=== PATIENT | female | born 1950 | race Caucasian/White ===

== ENCOUNTER 2020-05-14 10:15 | Outpatient (CLI) | payer MEDICARE, MEDICAID, SELFPAY | END 2020-05-14 10:16 | disposition home or self-care (01) | DX: H90.3 Sensorineural hearing loss, bilateral (principal) | CPT/HCPCS: 92557; 92567 ==

== ENCOUNTER 2020-08-23 10:00 | Outpatient (RCR) | payer MEDICAID, SELFPAY | END 2020-10-14 23:59 | disposition home or self-care (01) | LOC: ANHBWCAUD 10:00 | PROVIDERS: PCP Family Medicine; Visit Provider Family Medicine | DX: Z46.1 Encounter for fitting and adjustment of hearing aid (principal) | CPT/HCPCS: 99199; V5160; V5261; V5264 ==

== ENCOUNTER 2021-06-13 12:38 | Outpatient (RCR) | payer MEDICAID, SELFPAY | END 2021-09-11 23:59 | disposition home or self-care (01) | LOC: ANHBWCAUD 12:38 | PROVIDERS: PCP Family Medicine; Visit Provider Family Medicine | DX: Z46.1 Encounter for fitting and adjustment of hearing aid (principal) | CPT/HCPCS: V5264 ==

== ENCOUNTER 2021-08-19 08:44 | Outpatient (CLI) | payer MEDICARE, MEDICAID, SELFPAY | END 2021-08-19 08:45 | disposition home or self-care (01) | PROVIDERS: PCP Family Medicine; Visit Provider Family Medicine | DX: H90.3 Sensorineural hearing loss, bilateral (principal) | CPT/HCPCS: 92557; 92567 ==

== ENCOUNTER 2022-08-04 13:42 | Outpatient (CLI) | payer MEDICARE, MEDICAID, SELFPAY | END 2022-08-04 13:43 | disposition home or self-care (01) | PROVIDERS: PCP Family Medicine; Visit Provider Family Medicine | DX: H90.3 Sensorineural hearing loss, bilateral (principal) | CPT/HCPCS: 92557; 92567 ==

== ENCOUNTER 2023-09-29 10:25 | Outpatient (CLI) | payer MEDICARE, MEDICAID, SELFPAY | END 2023-09-29 10:26 | disposition home or self-care (01) | LOC: ANHBWCAUD 10:26 | PROVIDERS: PCP Family Medicine | DX: H91.93 Unspecified hearing loss, bilateral (principal) | CPT/HCPCS: 99199 ==

== ENCOUNTER 2023-11-17 09:59 | Outpatient (CLI) | payer MEDICARE, MEDICAID, SELFPAY | END 2023-11-17 10:00 | disposition home or self-care (01) | LOC: ANHBWCAUD 09:59 | PROVIDERS: PCP Family Medicine | DX: H90.3 Sensorineural hearing loss, bilateral (principal) | CPT/HCPCS: 92557; 92567 ==

== ENCOUNTER 2024-11-28 09:08 | Outpatient (CLI) | payer MEDICARE, MEDICAID, SELFPAY ==
--- OUTSIDE RECORDS SUMMARY | 2024-11-28 09:19 | XMS_ITS | Encounter Summary ---
Author Organization [facility] Address [address] [place] [address] Phone Care Team Providers Care Grips Name Role Phone Jasson Layne MD Unavailable [phone] Brice Mondragon MD Primary Care Provider [phone] Fortino Alicia MD Primary Care Provider [phone] Encounter Details Date Type Department Care Team (Late st Contact Info) Description 03/25/2022 Lab Requisition [facility] Laboratory Services [address] [place] [address] Brice Monrdagon MD [address] [place] [address] [address] [address] [place] [address] Encounter for screening for COVID-19 Social History Tobacco Use Types Packs/Day Years Used Date Smoking Tobacco: Never Smokeless Tobacco: Never Alcohol Use Standard Drinks/Week Comments Not Currently 0 (1 standard drink = 0.6 oz pur e alcohol) Sexually Active Control Partners Comments Not Currently Comments Unknown Sex and Gender Information Value Date Recorded Sex Assigned at Not on file Legal Sex Female 11:47 PM CDT Gender Identity Not on file Sexual Orientation Not on file documented as of this encounter Plan of Treatment Not on file documented as of this encounter Visit Diagnoses Diagnosis Encounter for screening for COVID-19 documented in this encounter Additional Health Concerns Infection Onset Date Last Indicated Resolved Time COVID - 19 10/08/2021 05/06/2022 05/16/2022 12:1 6 AM REGISTERED NURSE NURSERY COVID - 19 06/24/2022 09/09/2022 09/19/2022 12:1 6 AM CDT documented as of this encounter Care Teams Grips Relationship Specialty Start Date End Date Brice Mondragon MD 4 [facility] [address] [place] [address] PCP - General Family Medicine 03/12/20 11/05/22 Fortino Alicia MD [address] [facility] [address] [place] [address] PCP - General Internal Medicine 11/06/22 Jasson Layne MD Consulting Physician Neurology 04/02/16 05/07/24 documented as of this encounter
--- OUTSIDE RECORDS SUMMARY | 2024-11-28 09:19 | XMS_ITS | Encounter Summary ---
Author Organization [facility] Address [address] [place] [address] Phone Care Team Providers Care Registered Pharmacist Name Role Phone Jasson Layne MD Unavailable [phone] Brice Mondragon MD Primary Care Provider [phone] Fortino Alicia MD Primary Care Provider [phone] Encounter Details Date Type Department Care Team (Late st Contact Info) Description 04/01/[address] [facility] Laboratory Services [address] [place] [address] Brice Mondragon MD [address] [place] [address] [facility] [address] [place] [address] Encounter for screening for COVID-19 [...] on file documented as of this encounter Procedures Procedure Name Priority Date/Time Associated Diagnosis Comments SARS-COV-2 BY MOLECULAR Routine 04/01/2022 8:34 AM CDT Encounter for screening for COVID-19 documented in this encounter Results * SARS-COV-2 BY MOLECULAR (04/01/2022 8:34 AM CDT) SARSCOV2 NOT DETECTED (Referen ce Range for this test is Not Detected ) [facility] THERMOFISHER FAST DX 04/02/2022 12:28 AM CDT [facility] Comment:This test was perfor med by a RT-PCR method. Other No Phlebotomy Charged / Unknown 04/01/2022 8:34 AM CDT 04/01/2022 1:06 PM CDT Narrative [facility] - 04/02/2022 12:28 AM CDT Authorized Fact Sheets about this test for providers and patients are available at: https://www.fda.gov/medical-devices/fmfosjeyo-vnlvaxubjn-mkppljo-devices/emergen -us e-authorizations us Brice Mondragon MD MICROBIOLOGY - GENERAL ORDERAB LES Final Result [facility] [address] [id number], documented in this encounter Visit Diagnoses Diagnosis Encounter for screening for COVID-19 documented in this encounter Additional Health Concerns Infection Onset Date Last Indicated Resolved Time COVID - 19 10/08/2021 05/06/2022 05/16/2022 12:1 6 AM AMPOULE INSPECTOR COVID - 19 06/24/2022 09/09/2022 09/19/2022 12:1 6 AM CDT documented as of this encounter Care Teams Registered Pharmacist Relationship Specialty Start Date End Date Brice Mondragon MD [address] [place] [address] [address] [place] [address] PCP - General Family Medicine 03/12/20 11/05/22 Fortino Alicia MD [address] [place] [address] PCP - General Internal Medicine 11/06/22 Jasson Layne MD Consulting Physician Neurology 04/02/16 05/07/24 documented as of this encounter
--- OUTSIDE RECORDS SUMMARY | 2024-11-28 09:19 | XMS_ITS | Encounter Summary ---
Author Organization [facility] Address [address] [place] [address] Phone Care Team Providers Care Mud Mixer Name Role Phone Jasson Layne MD Unavailable [phone] Brice Mondragon MD Primary Care Provider [phone] Fortino Alciia MD Primary Care Provider [phone] Encounter Details Date Type Department Care Team (Late st Contact Info) Description 06/24/2022 Lab Requisition [facility] Laboratory Services 1 [place] [address] Brice Mondragon MD [address] [place] [address] [facility] [address] [place] [address] Encounter for screening for COVID-19 [...] Associated Diagnosis Comments SARS-COV-2 BY MOLECULAR Routine 06/24/2022 8:20 AM SUPERVISOR COLOR MAKING Encounter for screening for COVID-19 documented in this encounter Results * SARS-COV-2 BY MOLECULAR (06/24/2022 8:20 AM SUPERVISOR COLOR MAKING) SARSCOV2 NOT DETECTED (Referen ce Range for this test is Not Detected ) [facility] THERMOFISHER FAST DX 06/25/2022 12:02 AM SUPERVISOR COLOR MAKING [facility] Comment:This test was perfor med by a RT-PCR method. Other Non-Phlebotomy Collection / Unknown 06/24/2022 8:20 AM SUPERVISOR COLOR MAKING 06/24/2022 2:29 PM SUPERVISOR COLOR MAKING Narrative [facility] - 06/25/2022 12:02 AM SUPERVISOR COLOR MAKING Authorized Fact Sheets about this test for providers and patients are available at: https://www.fda.gov/medical-devices/obpuyqccm-mfboazgcff-kkutofh-devices/emergen cy-us e-authorizations us Brice Mondragon MD MICROBIOLOGY - GENERAL ORDERAB LES Final Result [facility] [address] [id number], documented in this encounter Visit Diagnoses Diagnosis Encounter for screening for COVID-19 documented in this encounter Additional Health Concerns Infection Onset Date Last Indicated Resolved Time COVID - 19 06/24/2022 09/09/2022 09/19/2022 12:1 6 AM CDT documented as of this encounter Care Teams Mud Mixer Relationship Specialty Start Date End Date Brice Mondragon MD [address] [place] [address] [address] [place] [address] PCP - General Family Medicine 03/12/20 11/05/22 Fortino Alicia MD [address] [place] [address] PCP - General Internal Medicine 11/06/22 Jasson Layne MD Consulting Physician Neurology 04/02/16 05/07/24 documented as of this encounter
--- OUTSIDE RECORDS SUMMARY | 2024-11-28 09:19 | XMS_ITS | Encounter Summary ---
Author Organization [facility] Address [address] [place] [address] Phone Care Team Providers Care Health Spa Manager Name Role Phone Jasson Layne MD Unavailable [phone] Brice Mondragon MD Primary Care Provider Fortino Alicia MD Primary Care Provider [phone] Encounter Details Date Type Department Care Team (Late st Contact Info) Description 05/06/2022 Lab Requisition [facility] Laboratory Services [address] [place] [address] Brice Mondragon MD [address] [place] [address] [facility] [address] [place] [address] Encounter for screening for COVID-19 [...] Associated Diagnosis Comments SARS-COV-2 BY MOLECULAR Routine 05/06/2022 9:50 AM AIRPLANE CLEANER Encounter for screening for COVID-19 documented in this encounter Results * SARS-COV-2 BY MOLECULAR (05/06/2022 9:50 AM AIRPLANE CLEANER) SARSCOV2 NOT DETECTED (Referen ce Range for this test is Not Detected ) [facility] THERMOFISHER FAST DX 05/07/2022 4:42 AM AIRPLANE CLEANER [facility] Comment:This test was perfor med by a RT-PCR method. Other Non-Phlebotomy Collection / Unknown 05/06/2022 9:50 AM AIRPLANE CLEANER 05/06/2022 11:07 AM AIRPLANE CLEANER Narrative [facility] - 05/07/2022 4:42 AM AIRPLANE CLEANER Authorized Fact Sheets about this test for providers and patients are available at: https://www.fda.gov/medical-devices/sadjdjftk-pliwpdbcva-xgmmntl-devices/emergen -us e-authorizations us Brice Mondragon MD MICROBIOLOGY - GENERAL ORDERAB LES Final Result [facility] [address] [place] [address], documented in this encounter Visit Diagnoses Diagnosis Encounter for screening for COVID-19 documented in this encounter Additional Health Concerns Infection Onset Date Last Indicated Resolved Time COVID - 19 10/08/2021 05/06/2022 05/16/2022 12:1 6 AM AIRPLANE CLEANER COVID - 19 06/24/2022 09/09/2022 09/19/2022 12:1 6 AM CDT documented as of this encounter Care Teams Health Spa Manager Relationship Specialty Start Date End Date Brice Mondragon MD [address] [facility] [address] [place] [address] PCP - General Family Medicine 03/12/20 11/05/22 Fortino Alicia MD [address] [place] [address] PCP - General Internal Medicine 11/06/22 Jasson Layne MD Consulting Physician Neurology 04/02/16 05/07/24 documented as of this encounter
--- OUTSIDE RECORDS SUMMARY | 2024-11-28 09:19 | XMS_ITS | Encounter Summary ---
Author Organization [facility] Address [address] [place] [address] Phone Care Team Providers Care M1A1 Tank Crewman Name Role Phone Jasson Layne MD Unavailable [phone] Brice Mondragon MD Primary Care Provider [phone] Fortino Alicia MD Primary Care Provider [phone] Encounter Details Date Type Department Care Team (Late st Contact Info) Description 07/01/2022 Lab Requisition [facility] Laboratory Services 1 [place] [address] Brice Mondragon MD [address] [place] [address] [facility] [address] [place] [address] Encounter for screening for COVID-19 [...] Associated Diagnosis Comments SARS-COV-2 BY MOLECULAR Routine 07/01/2022 12:12 PM VENDOR QUALITY SUPERVISOR Encounter for screening for COVID-19 documented in this encounter Results * SARS-COV-2 BY MOLECULAR (07/01/2022 12:12 PM VENDOR QUALITY SUPERVISOR) SARSCOV2 NOT DETECTED (Referen ce Range for this test is Not Detected ) [facility] THERMOFISHER FAST DX 07/02/2022 12:24 AM VENDOR QUALITY SUPERVISOR [facility] Comment:This test was perfor med by a RT-PCR method. Other No Phlebotomy Charged / Unknown 07/01/2022 12:12 PM VENDOR QUALITY SUPERVISOR 07/01/2022 1:44 PM VENDOR QUALITY SUPERVISOR Narrative [facility] - 07/02/2022 12:24 AM VENDOR QUALITY SUPERVISOR Authorized Fact Sheets about this test for providers and patients are available at: https://www.fda.gov/medical-devices/fuyveouwa-ohtmnlzaiq-dbepnjg-devices/emergen -us e-authorizations us Brice Mondragon MD MICROBIOLOGY - GENERAL ORDERAB LES Final Result [facility] [address] [place] [address], documented in this encounter Visit Diagnoses Diagnosis Encounter for screening for COVID-19 documented in this encounter Additional Health Concerns Infection Onset Date Last Indicated Resolved Time COVID - 19 06/24/2022 09/09/2022 09/19/2022 12:1 6 AM CDT documented as of this encounter Care Teams M1A1 Tank Crewman Relationship Specialty Start Date End Date Brice Mondragon MD [address] [place] [address] [address] [place] [address] PCP - General Family Medicine 03/12/20 11/05/22 Fortino Alicia MD [address] [place] [address] PCP - General Internal Medicine 11/06/22 Jasson Layne MD Consulting Physician Neurology 04/02/16 05/07/24 documented as of this encounter
--- OUTSIDE RECORDS SUMMARY | 2024-11-28 09:20 | XMS_ITS | Encounter Summary ---
Author Organization [facility] Address [address] [place] [address] Phone Care Team Providers Care Mental Health Social Worker Name Role Phone Fortino Alicia MD Primary Care Provider [phone] Encounter Details Date Type Department Care Team (Late st Contact Info) Description 08/30/2024 Lab Requisition [facility] Laboratory Services [address] [place] [id number] Fortino Alicia MD [address] [facility] [address] [place] [address] Other seizures (HCC); Hypothyroidism, unspecified; Vasomotor rhinitis; Unspecified dementia, unspecified severity, without behavioral disturbance, psychotic disturbance, mood disturbance, and anxiety (HCC); Moderate intellectual disabilities; Unspecified intellectual disabilities; Essential (primary) hypertension Social History Tobacco Use Types Packs/Day Years [...] Procedure Name Priority Date/Time Associated Diagnosis Comments VITAMIN D, 25 HYDROXY TOTAL Routine 08/30/2024 6:57 AM BODY LINER Other seizures (HCC) Hypothyroidism, unspecified Vasomotor rhinitis Unspecified dementia, unspecified severity, without behavioral disturbance, psychotic disturbance, mood disturbance, and anxiety (HCC) Moderate intellectual disabilities Unspecified intellectual disabilities Essential (primary) hypertension LEVETIRACETAM Routine 08/30/2024 6:57 AM BODY LINER Other seizures (HCC) Hypothyroidism, unspecified Vasomotor rhinitis Unspecified dementia, unspecified severity, without behavioral disturbance, psychotic disturbance, mood disturbance, and anxiety (HCC) Moderate intellectual disabilities Unspecified intellectual disabilities Essential (primary) hypertension CBC WITH AUTO DIFFERENTIAL Routine 08/30/2024 6:57 AM BODY LINER Other seizures (HCC) Hypothyroidism, unspecified Vasomotor rhinitis Unspecified dementia, unspecified severity, without behavioral disturbance, psychotic disturbance, mood disturbance, and anxiety (HCC) Moderate intellectual disabilities Unspecified intellectual disabilities Essential (primary) hypertension THYROID STIMULATING HORMONE (TSH) Routine 08/30/2024 6:57 AM BODY LINER Other seizures (HCC) Hypothyroidism, unspecified Vasomotor rhinitis Unspecified dementia, unspecified severity, without behavioral disturbance, psychotic disturbance, mood disturbance, and anxiety (HCC) Moderate intellectual disabilities Unspecified intellectual disabilities Essential (primary) hypertension TRIIODOTHYRININE (T3) FREE Routine 08/30/2024 6:57 AM BODY LINER Other seizures (HCC) Hypothyroidism, unspecified Vasomotor rhinitis Unspecified dementia, unspecified severity, without behavioral disturbance, psychotic disturbance, mood disturbance, and anxiety (HCC) Moderate intellectual disabilities Unspecified intellectual disabilities Essential (primary) hypertension CMP (COMPREHENSIVE METABOLIC PANEL) Routine 08/30/2024 6:57 AM BODY LINER Other seizures (HCC) Hypothyroidism, unspecified Vasomotor rhinitis Unspecified dementia, unspecified severity, without behavioral disturbance, psychotic disturbance, mood disturbance, and anxiety (HCC) Moderate intellectual disabilities Unspecified intellectual disabilities Essential (primary) hypertension COMPLETE BLOOD COUNT (CBC) WITH DIFF Routine 08/30/2024 6:57 AM BODY LINER Other seizures (HCC) Hypothyroidism, unspecified Vasomotor rhinitis Unspecified dementia, unspecified severity, without behavioral disturbance, psychotic disturbance, mood disturbance, and anxiety (HCC) Moderate intellectual disabilities Unspecified intellectual disabilities Essential (primary) hypertension BILIRUBIN DIRECT (CONJUGATED) Routine 08/30/2024 6:57 AM BODY LINER Other seizures (HCC) Hypothyroidism, unspecified Vasomotor rhinitis Unspecified dementia, unspecified severity, without behavioral disturbance, psychotic disturbance, mood disturbance, and anxiety (HCC) Moderate intellectual disabilities Unspecified intellectual disabilities Essential (primary) hypertension documented in this encounter Results * BILIRUBIN DIRECT (CONJUGATED) (08/30/2024 6:57 AM BODY LINER) BILIRUBIN,DIREC T 0.2 0.0 - 0.5 mg/dL 08/30/2024 10:42 AM BODY LINER [facility] Blood Venipuncture / Unknown 08/30/2024 6:57 AM BODY LINER 08/30/2024 10:29 AM BODY LINER us Fortino Alicia MD CHEMISTRY ORDERABLES Final Resu lt [facility] #[address] [place] [address] * (ABNORMAL) CBC WITH AUTO DIFFERENTIAL (08/30/2024 6:57 AM BODY LINER) Pathologist [facility] WBC 4.85 4.00 - 12.00 10(3)/mcL 08/30/2024 8:09 AM BODY LINER [facility] RBC 4.72 3.80 - 5.30 10(6)/mcL 08/30/2024 8:09 AM [facility] HEMOGLOBIN (HGB) 14.5 12.0 - 15.8 g/dL 08/30/2024 8:09 AM BODY LINER [facility] HEMATOCRIT (HCT) 43.1 36.0 - 47.0 % 08/30/2024 8:09 AM [facility] MCV 91.3 82.0 - 96.0 fL 08/30/2024 8:09 AM [facility] MCH 30.7 26.0 - 34.0 pg 08/30/2024 8:09 AM [facility] MCHC 33.6 31.0 - 36.0 g/dL 08/30/2024 8:09 AM [facility] PLATELET COUNT 272 140 - 440 10(3)/[facility] 08/30/2024 8:09 AM [facility] RDW 12.9 11.8 - 15.5 % 08/30/2024 8:09 AM [facility] MPV 10.6 9.7 - 12.4 fL 08/30/2024 8:09 AM [facility] NEUTROPHILS 63.9 47.0 - 73.0 % 08/30/2024 8:09 AM [facility] LYMPHOCYTES 25.4 18.0 - 42.0 % 08/30/2024 8:09 AM [facility] MONOCYTES 10.1 4.0 - 12.0 % 08/30/2024 8:09 AM [facility] EOSINOPHILS 0.0 0.0 - 5.0 % 08/30/2024 8:09 AM [facility] BASOPHILS 0.6 0.0 - 1.0 % 08/30/2024 8:09 AM [facility] ABSOLUTE NEUTROPHILS 3.10 1.60 - 7.70 10(3)/[facility] 08/30/2024 8:09 AM [facility] ABSOLUTE LYMPHOCYTES 1.23(L) 1.30 - 3.20 10(3)/[facility] 08/30/2024 8:09 AM [facility] ABSOLUTE MONOCYTES 0.49 0.20 - 1.00 10(3)/[facility] 08/30/2024 8:09 AM [facility] ABSOLUTE EOSINOPHIL 0.00 0.00 - 0.40 10(3)/[facility] 08/30/2024 8:09 AM [facility] ABSOLUTE BASOPHILS 0.03 0.00 - 0.10 10(3)/[facility] 08/30/2024 8:09 AM [facility] NRBC PER 100 WBC 0 08/31/19 8:09 AM [facility] Blood Venipuncture / Unknown 08/30/2024 6:57 AM BODY LINER 08/30/2024 8:04 AM BODY LINER Fortino Alicia MD HEMATOLOGY ORDERABLES Final Res ult Performing Organization Address City/[facility]/ZIP Co de Phone Number [facility] [address] [place] [address] * VITAMIN D, 25 HYDROXY TOTAL (08/30/2024 6:57 AM BODY LINER) VITAMIN D, 25 HYDROX 29.3 ng/mL 08/30/2024 8:57 AM BODY LINER [facility] Blood Venipuncture / Unknown 08/30/2024 6:57 AM BODY LINER 08/30/2024 8:04 AM BODY LINER Narrative [facility] - 08/30/2024 8:57 AM BODY LINER Published reference ranges for Vitamin D vary depending on time and place and method of testing, and on patient's age, sex, ethnicity and levels of other measured analytes such as parathormone, calcium and phosphorus. The result should be evaluated in conjunction with clinical findings and suspicions. [employer] and [employer] Clinical Practice Guidelines: Status Vitamin D levels (ng/mL) Deficient <=20 At risk of inadequacy 21-29 Sufficient 30-100 Centers of Disease Control and Prevention Guidelines: Status Vitamin D levels (ng/mL) Deficient <13 At risk of inadequacy 13-19 Sufficient 20-50 Possibly harmful >50 References: [employer], 2010 Dietary reference intakes for calcium and vitamin D. [place]: The National Academies Press. Gabi M, Laine N, Jamila STRATTON, et al., Evaluation, treatment, and prevention of Vitamin D deficiency: an Endocrinology Clinical Practice Guideline. JCEM 2011 96: 7 2932-5415. Nicole A, Seamus C, Karla D, et al., Vitamin D Status: [place], 9976-6051, DCHS data brief, no. 59, [place]: National Center for Health Statistics. 2011. Fortino Alicia MD CHEMISTRY ORDERABLES Final Resu lt Performing Organization Address City/[facility]/ZIP Co de Phone Number [facility] [address] [place] [address] * LEVETIRACETAM (08/30/2024 6:57 AM BODY LINER) LEVETIRACETAM 37.7 12 - 46 mcg/mL 08/30/2024 2:31 PM BODY LINER [facility] Blood Venipuncture / Unknown 08/30/2024 6:57 AM BODY LINER 08/30/2024 8:04 AM BODY LINER us Fortino Alicia MD LAB SEND OUTS Final Result [facility] [address] [place] [address], * THYROID STIMULATING HORMONE (TSH) (08/30/2024 6:57 AM BODY LINER) TSH 1.652 0.300 - 5.000 mIU/L 08/30/2024 8:58 AM BODY LINER [facility] Blood Venipuncture / Unknown 08/30/2024 6:57 AM BODY LINER 08/30/2024 8:04 AM BODY LINER us Fortino Alicia MD CHEMISTRY ORDERABLES Final Resu lt [facility] [address] [place] [address] * TRIIODOTHYRININE (T3) FREE (08/30/2024 6:57 AM BODY LINER) FREE T3 3.0 1.6 - 3.9 pg/mL 08/30/2024 2:44 PM BODY LINER [facility] Blood Venipuncture / Unknown 08/30/2024 6:57 AM BODY LINER 08/30/2024 8:04 AM BODY LINER us Fortino Alicia MD CHEMISTRY ORDERABLES Final Resu lt [facility] [address] [place] [address], * (ABNORMAL) CMP (COMPREHENSIVE METABOLIC PANEL) (08/30/2024 6:57 AM BODY LINER) SODIUM 143 136 - 145 mmol/L 08/30/2024 8:42 AM [facility] POTASSIUM 4.1 3.5 - 5.1 mmol/L 08/30/2024 8:42 AM [facility] CHLORIDE 107 98 - 107 mmol/L 08/30/2024 8:42 AM [facility] CO2, VENOUS 27 22 - 30 mmol/L 08/30/2024 8:42 AM [facility] ANION GAP 13.1 <18.0 mmol/L 08/30/2024 8:42 AM [facility] GLUCOSE 99 70 - 99 mg/dL 08/30/2024 8:42 AM [facility] BUN 14 10 - 20 mg/dL 08/30/2024 8:42 AM [facility] CREATININE, BLOOD 0.75 0.60 - 1.00 mg/dL 08/30/2024 8:42 AM [facility] BUN/CREATININE RATIO 19 12 - 20 ratio 08/30/2024 8:42 AM [facility] TOTAL PROTEIN 8.2(H) 6.0 - 8.0 g/dL 08/30/2024 8:42 AM [facility] ALBUMIN 4.4 3.5 - 5.0 g/dL 08/30/2024 8:42 AM [facility] A/G RATIO 1.2 1.0 - 2.2 08/30/2024 8:42 AM [facility] CALCIUM 9.4 8.7 - 10.5 mg/dL 08/30/2024 8:42 AM [facility] T BILI 0.5 0.2 - 1.2 mg/dL 08/30/2024 8:42 AM [facility] SGOT (AST) 28 <43 U/L 08/30/2024 8:42 AM BODY LINER [facility] SGPT (ALT) 14 <56 U/L 08/30/2024 8:42 AM BODY LINER [facility] ALKALINE PHOSPHATASE 68 40 - 150 U/L 08/30/2024 8:42 AM BODY LINER [facility] GFR, ESTIMATED >60 >=60 08/30/2024 8:42 AM BODY LINER [facility] Comment: Creatinine Clearance is the preferred criteria for selecting drug dose adjustments in renally impaired patients. The GFR is provided as additional pertinent clinical information. GFR is reported in mL/min/1.73 sq m. Calculation based on the Chronic Kidney Disease Epidemiology Collaboration (CKD- EPI) equation refit without adjustment for race. GFR, EST. >60 >=60 025 8:42 AM BODY LINER [facility] GFR, EST. NONAFRICAN >60 >=60 08/30/2024 8:42 AM BODY LINER [facility] Blood Venipuncture / Unknown 08/30/2024 6:57 AM BODY LINER 08/30/2024 8:04 AM BODY LINER us Fortino Alicia MD CHEMISTRY ORDERABLES Final Resu lt [facility] [address] [place] [address] documented in this encounter Visit Diagnoses Diagnosis Other seizures (HCC) Hypothyroidism, unspecified Vasomotor rhinitis Allergic rhinitis, cause unspecified Unspecified dementia, unspecified severity, without behavioral disturbance, psychotic disturbance, mood disturbance, and anxiety (HCC) Moderate intellectual disabilities Unspecified intellectual disabilities Essential (primary) hypertension Unspecified essential hypertension documented in this encounter Care Teams Mental Health Social Worker Relationship Specialty Start Date End Date Fortino Alicia MD [address] [place] [address] PCP - General Internal Medicine 11/06/22 documented as of this encounter
--- OUTSIDE RECORDS SUMMARY | 2024-11-28 09:20 | XMS_ITS | Encounter Summary ---
Author Organization [facility] Address [address] [place] [address] Phone Care Team Providers Care Swim Coach Name Role Phone Jasson Layne MD Unavailable [phone] Brice Mondragon MD Primary Care Provider Fortino Alicia MD Primary Care Provider [phone] Encounter Details Date Type Department Care Team (Late st Contact Info) Description 06/18/2021 Lab Requisition [facility] Laboratory Services 1 [place] [address] Brice Mondragon MD [address] [place] [address] [facility] [address] [place] [address] Encounter for screening for COVID-19 [...] Associated Diagnosis Comments SARS-COV-2 BY MOLECULAR Routine 06/18/2021 8:27 AM SHEET IRONWORKER Encounter for screening for COVID-19 documented in this encounter Results * SARS-COV-2 BY MOLECULAR (06/18/2021 8:27 AM SHEET IRONWORKER) SARSCOV2 NOT DETECTED (Referen ce Range for this test is Not Detected ) [facility] THERMOFISHER FAST DX 06/21/2021 8:57 AM SHEET IRONWORKER [facility] Comment:This test was perfor med by a RT-PCR method. Other Non-Phlebotomy Collection / Unknown 06/18/2021 8:27 AM SHEET IRONWORKER 06/18/2021 9:03 PM SHEET IRONWORKER Narrative [facility] - 06/21/2021 8:57 AM SHEET IRONWORKER Authorized Fact Sheets about this test for providers and patients are available at: https://www.fda.gov/medical-devices/ghewydjbx-smutsnyuav-uqxxfjb-devices/emergen -us e-authorizations us Brice Mondragon MD MICROBIOLOGY - GENERAL ORDERAB LES Final Result [facility] [address] [place] [id number], documented in this encounter Visit Diagnoses Diagnosis Encounter for screening for COVID-19 documented in this encounter Additional Health Concerns Infection Onset Date Last Indicated Resolved Time COVID - 19 03/19/2021 07/02/2021 07/04/2021 7:20 PM SHEET IRONWORKER COVID - 19 Confirmed 07/02/2021 07/02/2021 022 12:17 AM SHEET IRONWORKER COVID - 19 07/23/2021 08/13/2021 09/02/2021 12:1 6 AM SHEET IRONWORKER COVID - 19 10/08/2021 05/06/2022 05/16/2022 12:1 6 AM SHEET IRONWORKER COVID - 19 06/24/2022 09/09/2022 09/19/2022 12:1 6 AM CDT documented as of this encounter Care Teams Swim Coach Relationship Specialty Start Date End Date Brice Mondragon MD [address] [facility] [address] [place] [address] PCP - General Family Medicine 03/12/20 11/05/22 Fortino Alicia MD [address] [place] [address] PCP - General Internal Medicine 11/06/22 Jasson Layne MD Consulting Physician Neurology 04/02/16 05/07/24 documented as of this encounter
--- OUTSIDE RECORDS SUMMARY | 2024-11-28 09:20 | XMS_ITS | Encounter Summary ---
Author Organization [facility] Address [address] [place] [address] Phone Care Team Providers Care Comprehensive Advisor Name Role Phone Jasson Layne MD Unavailable [phone] Brice Mondragon MD Primary Care Provider [phone] Fortino Alicia MD Primary Care Provider [phone] Encounter Details Date Type Department Care Team (Late st Contact Info) Description 11/05/2021 Lab Requisition [facility] Laboratory Services [address] [place] [address] Brice Mondragon MD [address] [place] [address] [facility] [address] [place] [address] Encounter for screening for COVID-19 [...] Associated Diagnosis Comments SARS-COV-2 BY MOLECULAR Routine 11/05/2021 9:16 AM CDT Encounter for screening for COVID-19 documented in this encounter Results * SARS-COV-2 BY MOLECULAR (11/05/2021 9:16 AM CDT) SARSCOV2 NOT DETECTED (Referen ce Range for this test is Not Detected ) [facility] THERMOFISHER FAST DX 11/06/2021 10:12 AM CDT [facility] Comment:This test was perfor med by a RT-PCR method. Other Non-Phlebotomy Collection / Unknown 11/05/2021 9:16 AM CDT 11/05/2021 11:37 AM CDT Narrative [facility] - 11/06/2021 10:12 AM CDT Authorized Fact Sheets about this test for providers and patients are available at: https://www.fda.gov/medical-devices/ghqiuvymp-xejlgnblvw-vvffnfq-devices/emergen -us e-authorizations us Brice Mondragon MD MICROBIOLOGY - GENERAL ORDERAB LES Final Result [facility] [address] [place] [address], documented in this encounter Visit Diagnoses Diagnosis Encounter for screening for COVID-19 documented in this encounter Additional Health Concerns Infection Onset Date Last Indicated Resolved Time COVID - 19 10/08/2021 05/06/2022 05/16/2022 12:1 6 AM DATA COMPILER COVID - 19 06/24/2022 09/09/2022 09/19/2022 12:1 6 AM CDT documented as of this encounter Care Teams Comprehensive Advisor Relationship Specialty Start Date End Date Brice Mondragon MD [address] [place] [address] [address] [place] [address] PCP - General Family Medicine 03/12/20 11/05/22 Fortino Alicia MD [address] [facility] [address] [place] [address] PCP - General Internal Medicine 11/06/22 Jasson Layne MD Consulting Physician Neurology 04/02/16 05/07/24 documented as of this encounter
--- OUTSIDE RECORDS SUMMARY | 2024-11-28 09:20 | XMS_ITS | Encounter Summary ---
Author Organization [facility] Address [address] [place] [address] Phone Care Team Providers Care Photo Finish Photographer Name Role Phone Jasson Layne MD Unavailable [phone] Brice Mondragon MD Primary Care Provider [phone] Fortino Alicia MD Primary Care Provider [phone] Encounter Details Date Type Department Care Team (Late st Contact Info) Description 05/28/2021 Lab Requisition [facility] Laboratory Services [address] [place] [address] Brice Mondragon MD [address] [place] [address] [facility] [address] [place] [address] Encounter for screening for COVID-19 [...] on file Sexual Orientation Not on file COVID-19 Exposure Response Date Recorded In the last month, have you been in contact with someone who was confirmed or suspected to have Coronavirus / COVID-19? No / Unsure 04/30/2021 11:30 AM CDT documented as of this encounter Plan of Treatment Not on file documented as of this encounter Procedures Procedure Name Priority Date/Time Associated Diagnosis Comments SARS-COV-2 BY MOLECULAR Routine 05/28/2021 8:16 AM MIDDLE OR INTERMEDIATE SCHOOL PRINCIPAL documented in this encounter Results * SARS-COV-2 BY MOLECULAR (05/28/2021 8:16 AM MIDDLE OR INTERMEDIATE SCHOOL PRINCIPAL) SARSCOV2 NOT DETECTED (Referen ce Range for this test is Not Detected ) [facility] THERMOFISHER FAST DX 05/29/2021 10:30 AM MIDDLE OR INTERMEDIATE SCHOOL PRINCIPAL [facility] Comment:This test was perfor med by a RT-PCR method. Other No Phlebotomy Charged / Unknown 05/28/2021 8:16 AM MIDDLE OR INTERMEDIATE SCHOOL PRINCIPAL 05/28/2021 10:48 AM MIDDLE OR INTERMEDIATE SCHOOL PRINCIPAL Narrative [facility] - 05/29/2021 10:30 AM MIDDLE OR INTERMEDIATE SCHOOL PRINCIPAL Authorized Fact Sheets about this test for providers and patients are available at: https://www.fda.gov/medical-devices/zcicbvzur-rhiagjzduj-aelcjei-devices/emergen cy-us e-authorizations us Brice Mondragon MD MICROBIOLOGY - GENERAL ORDERAB LES Final Result [facility] [address] [place] [address], documented in this encounter Visit Diagnoses Diagnosis Encounter for screening for COVID-19 documented in this encounter Additional Health Concerns Infection Onset Date Last Indicated Resolved Time COVID - 19 03/19/2021 07/02/2021 07/04/2021 7:20 PM MIDDLE OR INTERMEDIATE SCHOOL PRINCIPAL COVID - 19 Confirmed 07/02/2021 07/02/2021 022 12:17 AM MIDDLE OR INTERMEDIATE SCHOOL PRINCIPAL COVID - 19 07/23/2021 08/13/2021 09/02/2021 12:1 6 AM MIDDLE OR INTERMEDIATE SCHOOL PRINCIPAL COVID - 19 10/08/2021 05/06/2022 05/16/2022 12:1 6 AM MIDDLE OR INTERMEDIATE SCHOOL PRINCIPAL COVID - 19 06/24/2022 09/09/2022 09/19/2022 12:1 6 AM CDT documented as of this encounter Care Teams Photo Finish Photographer Relationship Specialty Start Date End Date Brice Mondragon MD [address] [place] [address] [address] [place] [address] PCP - General Family Medicine 03/12/20 11/05/22 Fortino Alicia MD [address] [address] PCP - General Internal Medicine 11/06/22 Jasson Layne MD Consulting Physician Neurology 04/02/16 05/07/24 documented as of this encounter
--- OUTSIDE RECORDS SUMMARY | 2024-11-28 09:20 | XMS_ITS | Encounter Summary ---
Author Organization [facility] Address [address] [place] [address] Phone Care Team Providers Care Salvage Mend Worker Name Role Phone Jasson Layne MD Unavailable [phone] Brice Mondragon MD Primary Care Provider [phone] Fortino Alicia MD Primary Care Provider [phone] Encounter Details Date Type Department Care Team (Late st Contact Info) Description 09/02/2022 Lab Requisition [facility] Laboratory Services [address] [place] [address] Brice Mondragon MD [address] [place] [address] [facility] [address] [place] [address] Encounter for screening for COVID-19 [...] Associated Diagnosis Comments SARS-COV-2 BY MOLECULAR Routine 09/02/2022 8:25 AM IT SUPPORT CONSULTANT Encounter for screening for COVID-19 documented in this encounter Results * SARS-COV-2 BY MOLECULAR (09/02/2022 8:25 AM IT SUPPORT CONSULTANT) SARSCOV2 NOT DETECTED (Referen ce Range for this test is Not Detected ) [facility] THERMOFISHER FAST DX 09/02/2022 7:37 PM IT SUPPORT CONSULTANT [facility] Comment:This test was perfor med by a RT-PCR method. Other No Phlebotomy Charged / Unknown 09/02/2022 8:25 AM IT SUPPORT CONSULTANT 09/02/2022 9:58 AM IT SUPPORT CONSULTANT Narrative [facility] - 09/02/2022 7:37 PM IT SUPPORT CONSULTANT Authorized Fact Sheets about this test for providers and patients are available at: https://www.fda.gov/medical-devices/uwqnaypqt-rdchuwsexj-utjbwhm-devices/emergen -us e-authorizations us Brice Mondragon MD MICROBIOLOGY - GENERAL ORDERAB LES Final Result [facility] [address] [id number], documented in this encounter Visit Diagnoses Diagnosis Encounter for screening for COVID-19 documented in this encounter Additional Health Concerns Infection Onset Date Last Indicated Resolved Time COVID - 19 06/24/2022 09/09/2022 09/19/2022 12:1 6 AM CDT documented as of this encounter Care Teams Salvage Mend Worker Relationship Specialty Start Date End Date Brice Mondragon MD [address] [place] [address] [address] [place] [address] PCP - General Family Medicine 03/12/20 11/05/22 Fortino Alicia MD [address] [place] [address] PCP - General Internal Medicine 11/06/22 Jasson Layne MD Consulting Physician Neurology 04/02/16 05/07/24 documented as of this encounter
--- OUTSIDE RECORDS SUMMARY | 2024-11-28 09:20 | XMS_ITS | Encounter Summary ---
Author Organization [facility] Address [address] [place] [address] Phone Care Team Providers Care Magnet Placer Name Role Phone Jasson Layne MD Unavailable [phone] Brice Mondragon MD Primary Care Provider [phone] Fortino Alicia MD Primary Care Provider [phone] Encounter Details Date Type Department Care Team (Late st Contact Info) Description 02/18/2022 Lab Requisition [facility] 1 [place] [address] Brice Mondragon MD [address] [place] [address] [facility] [address] [place] [address] Encounter for screening for COVID-19 [...] Associated Diagnosis Comments SARS-COV-2 BY MOLECULAR Routine 02/18/2022 7:56 AM CDT Encounter for screening for COVID-19 documented in this encounter Results * SARS-COV-2 BY MOLECULAR (02/18/2022 7:56 AM CDT) SARSCOV2 NOT DETECTED (Referen ce Range for this test is Not Detected ) [facility] THERMOFISHER FAST DX 02/19/2022 8:46 AM CDT [facility] Comment:This test was perfor med by a RT-PCR method. Other Non-Phlebotomy Collection / Unknown 02/18/2022 7:56 AM CDT 02/18/2022 11:51 AM CDT Narrative [facility] - 02/19/2022 8:46 AM CDT Authorized Fact Sheets about this test for providers and patients are available at: https://www.fda.gov/medical-devices/bvqomvxyf-aenexomvfk-kprruob-devices/emergen -us e-authorizations us Brice Mondragon MD MICROBIOLOGY - GENERAL ORDERAB LES Final Result [facility] [address] [place] [address], documented in this encounter Visit Diagnoses Diagnosis Encounter for screening for COVID-19 documented in this encounter Additional Health Concerns Infection Onset Date Last Indicated Resolved Time COVID - 19 10/08/2021 05/06/2022 05/16/2022 12:1 6 AM VENETIAN BLIND INSTALLER COVID - 19 06/24/2022 09/09/2022 09/19/2022 12:1 6 AM CDT documented as of this encounter Care Teams Magnet Placer Relationship Specialty Start Date End Date Brice Mondragon MD [address] [place] [address] [address] [place] [address] PCP - General Family Medicine 03/12/20 11/05/22 Fortino Alicia MD [address] [place] [address] PCP - General Internal Medicine 11/06/22 Jasson Layne MD Consulting Physician Neurology 04/02/16 05/07/24 documented as of this encounter
--- OUTSIDE RECORDS SUMMARY | 2024-11-28 09:20 | XMS_ITS | Encounter Summary ---
Author Organization [facility] Address [address] [place] [address] Phone Care Team Providers Care Anatomy Professor Name Role Phone Fortino Alicia MD Primary Care Provider [phone] Encounter Details Date Type Department Care Team (Late st Contact Info) Description 11/15/2024 Lab Requisition [facility] Laboratory Services 1 [place] [address] Fortino Alicia MD [address] [facility] [address] [place] [address] Hypothyroidism, unspecified Social History Tobacco Use Types Packs/Day Years [...] Procedure Name Priority Date/Time Associated Diagnosis Comments MMRV PANEL Routine 11/15/2024 6:10 AM CDT Hypothyroidism, unspecified MUMPS IGG Routine 11/15/2024 6:10 AM CDT Hypothyroidism, unspecified HERPES ZOSTER (VARICELLA) IGG Routine 11/15/2024 6:10 AM CDT Hypothyroidism, unspecified RUBEOLA (MEASLES) IGG Routine 11/15/2024 6:10 AM CDT Hypothyroidism, unspecified RUBELLA IMMUNITY IGG Routine 11/15/2024 6:10 AM CDT Hypothyroidism, unspecified LIPID PANEL Routine 11/15/2024 6:10 AM CDT Hypothyroidism, unspecified documented in this encounter Results * HERPES ZOSTER (VARICELLA) IGG (11/15/2024 6:10 AM CDT) VARICELLA ZOSTER IGG 1.7 >=1.1 AI 11/15/2024 3:40 PM CDT [facility] Blood Venipuncture / Unknown 11/15/2024 6:10 AM CDT 11/15/2024 9:09 AM CDT Narrative [facility] - 11/15/2024 3:40 PM CDT <= 0.8 Negative. No detectable VZV IgG antibody. 0.9 - 1.0 Equivocal >=1.1 Positive Antibody testing was performed by multiplex flow immunoassay on the BioPlex platform. us Fortino Alicia MD IMMUNOLOGY ORDERABLES Final Res ult Performing Organization Address [facility] Co de Phone Number [facility] [address] [place] [address], * RUBEOLA (MEASLES) IGG (11/15/2024 6:10 AM CDT) MEASLES AB IGG 5.6 >=1.1 AI 11/15/2024 3:40 PM CDT [facility] Blood Venipuncture / Unknown 11/15/2024 6:10 AM CDT 11/15/2024 9:09 AM CDT Narrative [facility] - 11/15/2024 3:40 PM CDT <= 0.8 Negative. No detectable Measles IgG antibody. 0.9 - 1.0 Equivocal >=1.1 Positive Antibody testing was performed by multiplex flow immunoassay on the BioPlex platform. us Fortino Alicia MD IMMUNOLOGY ORDERABLES Final Res ult Performing Organization Address City/[facility]/ZIP Co de Phone Number [facility] [address] [place] [address], [place] * RUBELLA IMMUNITY IGG (11/15/2024 6:10 AM CDT) RUBELLA IMMUNITY Immune Immune, Invalid 11/15/2024 3:40 PM CDT [facility] RUBELLA IGG QUANT 5.10 >=1.0 AI AI 11/15/2024 3:40 PM CDT [facility] Blood Venipuncture / Unknown 11/15/2024 6:10 AM CDT 11/15/2024 9:09 AM CDT Narrative [facility] - 11/15/2024 3:40 PM CDT Antibody testing was performed by multiplex flow immunoassay on the BioPlex platform. us Fortino Alicia MD CHEMISTRY ORDERABLES Final Resu lt Performing Organization Address [facility] Co de Phone Number [facility] [address] [place] [address], [place] * MUMPS IGG (11/15/2024 6:10 AM CDT) Mumps Ab IgG 2.7 >=1.1 AI 11/15/2024 3:40 PM CDT [facility] Blood Venipuncture / Unknown 11/15/2024 6:10 AM CDT 11/15/2024 9:09 AM CDT [facility] - 11/15/2024 3:40 PM CDT <= 0.8 Negative. No detectable Mumps IgG antibody. 0.9 - 1.0 Equivocal >=1.1 Positive Antibody testing was performed by multiplex flow immunoassay on the BioPlex platform. us Fortino Alicia MD IMMUNOLOGY ORDERABLES Final Res ult Performing Organization Address City/[facility]/ZIP Co de Phone Number [facility] [address] [place] [address], [place] * LIPID PANEL (11/15/2024 6:10 AM CDT) CHOLESTEROL 149 <200 mg/dL 11/15/2024 9:55 AM CDT [facility] TRIGLYCERIDES 81 <150 mg/dL 11/15/2024 9:55 AM CDT [facility] HDL CHOLESTEROL 65 >40 mg/dL 9:55 AM CDT [facility] LDL 68 <130 mg/dL 11/15/2024 9:55 AM CDT [facility] VLDL 16 10 - 50 mg/dL 11/15/2024 9:55 AM CDT [facility] CHOL/HDL RATIO 2.3 0.0 - 4.4 11/15/2024 9:55 AM CDT [facility] NON-HDL CHOLESTEROL 84 <130 mg/dL 11/15/2024 9:55 AM CDT [facility] Blood Venipuncture / Unknown 11/15/2024 6:10 AM CDT 11/15/2024 9:09 AM CDT us Fortino Alicia MD CHEMISTRY ORDERABLES Final Resu lt [facility] [place] [address] documented in this encounter Visit Diagnoses Diagnosis Hypothyroidism, unspecified documented in this encounter Care Teams Anatomy Professor Relationship Specialty Start Date End Date Fortino Alicia MD [address] [facility] [address] [place] [address] PCP - General Internal Medicine 11/06/22 documented as of this encounter
--- OUTSIDE RECORDS SUMMARY | 2024-11-28 09:20 | XMS_ITS | Encounter Summary ---
Author Organization [facility] Address [address] [place] [address] Phone Care Team Providers Care Manager Pacu Name Role Phone Jasson Layne MD Unavailable [phone] Brice Mondragon MD Primary Care Provider [phone] Fortino Alicia MD Primary Care Provider [phone] Encounter Details Date Type Department Care Team (Late st Contact Info) Description 06/11/2021 Lab Requisition [facility] Laboratory Services 1 [place] [address] Brice Mondragon MD [address] [place] [address] [facility] [address] [place] [address] Encounter for screening for COVID-19 [...] Associated Diagnosis Comments SARS-COV-2 BY MOLECULAR Routine 06/11/2021 8:57 AM MEDICAL RECEPTION SPECIALIST Encounter for screening for COVID-19 documented in this encounter Results * SARS-COV-2 BY MOLECULAR (06/11/2021 8:57 AM MEDICAL RECEPTION SPECIALIST) SARSCOV2 NOT DETECTED (Referen ce Range for this test is Not Detected ) [facility] THERMOFISHER FAST DX 06/12/2021 6:00 PM MEDICAL RECEPTION SPECIALIST [facility] Comment:This test was perfor med by a RT-PCR method. Other No Phlebotomy Charged / Unknown 06/11/2021 8:57 AM MEDICAL RECEPTION SPECIALIST 06/11/2021 11:01 AM MEDICAL RECEPTION SPECIALIST Narrative [facility] - 06/12/2021 6:00 PM MEDICAL RECEPTION SPECIALIST Authorized Fact Sheets about this test for providers and patients are available at: https://www.fda.gov/medical-devices/vtfatcogb-gwrlaeiwla-xdcbpzw-devices/emergen -us e-authorizations us Brice Mondragon MD MICROBIOLOGY - GENERAL ORDERAB LES Final Result [facility] [address] [place] [address], documented in this encounter Visit Diagnoses Diagnosis Encounter for screening for COVID-19 documented in this encounter Additional Health Concerns Infection Onset Date Last Indicated Resolved Time COVID - 19 03/19/2021 07/02/2021 07/04/2021 7:20 PM MEDICAL RECEPTION SPECIALIST COVID - 19 Confirmed 07/02/2021 07/02/2021 022 12:17 AM MEDICAL RECEPTION SPECIALIST COVID - 19 07/23/2021 08/13/2021 09/02/2021 12:1 6 AM MEDICAL RECEPTION SPECIALIST COVID - 19 10/08/2021 05/06/2022 05/16/2022 12:1 6 AM MEDICAL RECEPTION SPECIALIST COVID - 19 06/24/2022 09/09/2022 09/19/2022 12:1 6 AM CDT documented as of this encounter Care Teams Manager Pacu Relationship Specialty Start Date End Date Brice Mondragon MD [address] [facility] [address] [place] [address] PCP - General Family Medicine 03/12/20 11/05/22 Fortino Alicia MD [address] [place] [address] PCP - General Internal Medicine 11/06/22 Jasson Layne MD Consulting Physician Neurology 04/02/16 05/07/24 documented as of this encounter
--- OUTSIDE RECORDS SUMMARY | 2024-11-28 09:20 | XMS_ITS | Encounter Summary ---
Author Organization [facility] Address [address] [place] [address] Phone Care Team Providers Care Power Line Lineman Name Role Phone Jasson Layne MD Unavailable [phone] Brice Mondragon MD Primary Care Provider [phone] Fortino Alicia MD Primary Care Provider [phone] Encounter Details Date Type Department Care Team (Late st Contact Info) Description 08/19/2022 Lab Requisition [facility] Laboratory Services 1 [place] [address] Brice Mondragon MD [address] [place] [address] [facility] [address] [place] [address] Encounter for screening for COVID-19 [...] Associated Diagnosis Comments SARS-COV-2 BY MOLECULAR Routine 08/19/2022 8:32 AM LUMP MAKER Encounter for screening for COVID-19 documented in this encounter Results * SARS-COV-2 BY MOLECULAR (08/19/2022 8:32 AM LUMP MAKER) SARSCOV2 NOT DETECTED (Referen ce Range for this test is Not Detected ) [facility] THERMOFISHER FAST DX 08/20/2022 8:54 AM LUMP MAKER [facility] Comment:This test was perfor med by a RT-PCR method. Other Non-Phlebotomy Collection / Unknown 08/19/2022 8:32 AM LUMP MAKER 08/19/2022 10:39 AM LUMP MAKER Narrative [facility] - 08/20/2022 8:54 AM LUMP MAKER Authorized Fact Sheets about this test for providers and patients are available at: https://www.fda.gov/medical-devices/aoqughibg-zkasljrqhl-toyyyyr-devices/emergen cy-us e-authorizations us Brice Mondragon MD MICROBIOLOGY - GENERAL ORDERAB LES Final Result [facility] [address] [place] [id number], documented in this encounter Visit Diagnoses Diagnosis Encounter for screening for COVID-19 documented in this encounter Additional Health Concerns Infection Onset Date Last Indicated Resolved Time COVID - 19 06/24/2022 09/09/2022 09/19/2022 12:1 6 AM CDT documented as of this encounter Care Teams Power Line Lineman Relationship Specialty Start Date End Date Brice Mondragon MD [address] [place] [address] [address] [place] [address] PCP - General Family Medicine 03/12/20 11/05/22 Fortino Alicia MD [address] [place] [address] PCP - General Internal Medicine 11/06/22 Jasson Layne MD Consulting Physician Neurology 04/02/16 05/07/24 documented as of this encounter
--- OUTSIDE RECORDS SUMMARY | 2024-11-28 09:20 | XMS_ITS | Encounter Summary ---
Author Organization [facility] Address [address] [place] [address] Phone Care Team Providers Care Grading Supervisor Name Role Phone Jasson Layne MD Unavailable [phone] Brice Mondragon MD Primary Care Provider [phone] Fortino Alicia MD Primary Care Provider [phone] Encounter Details Date Type Department Care Team (Late st Contact Info) Description 03/11/2022 Lab Requisition [facility] Laboratory Services 1 [place] [address] Brice Mondragon MD [address] [place] [address] [facility] [address] [place] [address] Encounter for screening for COVID-19 [...] Associated Diagnosis Comments SARS-COV-2 BY MOLECULAR Routine 03/11/2022 8:16 AM CDT documented in this encounter Results * SARS-COV-2 BY MOLECULAR (03/11/2022 8:16 AM CDT) SARSCOV2 NOT DETECTED (Referayaz larry Range for this test is Not Detected ) [facility] THERMOFISHER FAST DX 03/11/2022 10:11 PM CDT [facility] Comment:This test was perfor med by a RT-PCR method. Other Non-Phlebotomy Collection / Unknown 03/11/2022 8:16 AM CDT 03/11/2022 9:59 AM CDT Narrative [facility] - 03/11/2022 10:11 PM CDT Authorized Fact Sheets about this test for providers and patients are available at: https://www.fda.gov/medical-devices/aarwbqwfk-ecxxyyrhgb-lvrawwo-devices/emergen -us e-authorizations us Brice Mondragon MD MICROBIOLOGY - GENERAL ORDERAB LES Final Result [facility] [address] [place] [address], documented in this encounter Visit Diagnoses Diagnosis Encounter for screening for COVID-19 documented in this encounter Additional Health Concerns Infection Onset Date Last Indicated Resolved Time COVID - 19 10/08/2021 05/06/2022 05/16/2022 12:1 6 AM SHIPPING AND RECEIVING COORDINATOR COVID - 19 06/24/2022 09/09/2022 09/19/2022 12:1 6 AM CDT documented as of this encounter Care Teams Grading Supervisor Relationship Specialty Start Date End Date Brice Mondragon MD [address] [facility] [address] [place] [address] PCP - General Family Medicine 03/12/20 11/05/22 Fortino Alicia MD [address] [place] [address] PCP - General Internal Medicine 11/06/22 Jasson Layne MD Consulting Physician Neurology 04/02/16 05/07/24 documented as of this encounter
--- OUTSIDE RECORDS SUMMARY | 2024-11-28 09:20 | XMS_ITS | Encounter Summary ---
Author Organization [facility] Address [address] [place] [address] Phone Care Team Providers Care Patternmaker Plaster Name Role Phone Jasson Layne MD Unavailable [phone] Brice Mondragon MD Primary Care Provider [phone] Fortino Alicia MD Primary Care Provider [phone] Encounter Details Date Type Department Care Team (Late st Contact Info) Description 01/07/2022 Lab Requisition [facility] Laboratory Services 1 [place] [address] Brice Mondragon MD [address] [place] [address] [facility] 210 [place] [address] Encounter for screening for COVID-19 [...] Associated Diagnosis Comments SARS-COV-2 BY MOLECULAR Routine 01/07/2022 8:16 AM CDT Encounter for screening for COVID-19 documented in this encounter Results * SARS-COV-2 BY MOLECULAR (01/07/2022 8:16 AM CDT) SARSCOV2 NOT DETECTED (Referen ce Range for this test is Not Detected ) [facility] THERMOFISHER FAST DX 01/08/2022 10:49 AM CDT [facility] Comment:This test was perfor med by a RT-PCR method. Other Non-Phlebotomy Collection / Unknown 01/07/2022 8:16 AM CDT 01/07/2022 10:55 AM CDT [facility]arrative 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
--- OUTSIDE RECORDS SUMMARY | 2024-11-28 09:20 | XMS_ITS | Encounter Summary ---
Author Organization [facility] Address [address] [place] [address] [place] [address] Phone Care Team Providers Care Rn Call Center Name Role Phone Jasson Layne MD Unavailable [phone] Brice Mondragon MD Primary Care Provider [phone] Fortino Alicia MD Primary Care Provider [phone] Encounter Details Date Type Department Care Team (Late st Contact Info) Description 08/06/2021 Lab Requisition [facility] Laboratory Services 1 [place] [address] Brice Mondragon MD [address] [place] [address] [facility] [address] [place] [address] Encounter for screening for COVID-19 [...] Associated Diagnosis Comments SARS-COV-2 BY MOLECULAR Routine 08/06/2021 7:55 AM AUTOMATIC VULCANIZING LEAD OPERATOR Encounter for screening for COVID-19 documented in this encounter Results * SARS-COV-2 BY MOLECULAR (08/06/2021 7:55 AM AUTOMATIC VULCANIZING LEAD OPERATOR) SARSCOV2 NOT DETECTED (Referen ce Range for this test is Not Detected ) [facility] THERMOFISHER FAST DX 08/06/2021 11:49 PM AUTOMATIC VULCANIZING LEAD OPERATOR [facility] Comment:This test was perfor med by a RT-PCR method. Other Non-Phlebotomy Collection / Unknown 08/06/2021 7:55 AM AUTOMATIC VULCANIZING LEAD OPERATOR 08/06/2021 12:20 PM AUTOMATIC VULCANIZING LEAD OPERATOR Narrative [facility] - 08/06/2021 11:49 PM AUTOMATIC VULCANIZING LEAD OPERATOR Authorized Fact Sheets about this test for providers and patients are available at: https://www.fda.gov/medical-devices/ljxcwwytf-bqrrvaxkcf-lkdlgnb-devices/emergen -us e-authorizations us Brice Mondragon MD MICROBIOLOGY - GENERAL ORDERAB LES Final Result [facility] [address] [place] [address], documented in this encounter Visit Diagnoses Diagnosis Encounter for screening for COVID-19 documented in this encounter Additional Health Concerns Infection Onset Date Last Indicated Resolved Time COVID - 19 07/23/2021 08/13/2021 09/02/2021 12:1 6 AM AUTOMATIC VULCANIZING LEAD OPERATOR COVID - 19 10/08/2021 05/06/2022 05/16/2022 12:1 6 AM AUTOMATIC VULCANIZING LEAD OPERATOR COVID - 19 06/24/2022 09/09/2022 09/19/2022 12:1 6 AM CDT documented as of this encounter Care Teams Rn Call Center Relationship Specialty Start Date End Date Brice Mondragon MD 4 [facility] [address] [place] [address] PCP - General Family Medicine 03/12/20 11/05/22 Fortino Alicia MD [address] [facility] [address] [place] [address] PCP - General Internal Medicine 11/06/22 Jasson Layne MD Consulting Physician Neurology 04/02/16 05/07/24 documented as of this encounter
--- OUTSIDE RECORDS SUMMARY | 2024-11-28 09:20 | XMS_ITS | Encounter Summary ---
Author Organization [facility] Address [address] [place] [address] Phone Care Team Providers Care Smalltalk Developer Name Role Phone Jasson Layne MD Unavailable [phone] Brice Mondragon MD Primary Care Provider [phone] Fortino Alicia MD Primary Care Provider [phone] Encounter Details Date Type Department Care Team (Late st Contact Info) Description 02/04/2022 Lab Requisition [facility] Laboratory Services 1 [place] [address] Brice Mondragon MD [address] [place] [address] [facility] [address] [place] [address] Encounter for screening for COVID-19 [...] Associated Diagnosis Comments SARS-COV-2 BY MOLECULAR Routine 02/04/2022 8:01 AM CDT Encounter for screening for COVID-19 documented in this encounter Results * SARS-COV-2 BY MOLECULAR (02/04/2022 8:01 AM CDT) SARSCOV2 NOT DETECTED (Referen ce Range for this test is Not Detected ) [facility] THERMOFISHER FAST DX 02/05/2022 6:46 AM CDT [facility] Comment:This test was perfor med by a RT-PCR method. Other No Phlebotomy Charged / Unknown 02/04/2022 8:01 AM CDT 02/04/2022 10:59 AM CDT Narrative [facility] - 02/05/2022 6:46 AM CDT Authorized Fact Sheets about this test for providers and patients are available at: https://www.fda.gov/medical-devices/zrxxegdgd-buwteavtuy-oymqtae-devices/emergen -us e-authorizations us Brice Mondragon MD MICROBIOLOGY - GENERAL ORDERAB LES Final Result [facility] [address] [place] [id number], documented in this encounter Visit Diagnoses Diagnosis Encounter for screening for COVID-19 documented in this encounter Additional Health Concerns Infection Onset Date Last Indicated Resolved Time COVID - 19 10/08/2021 05/06/2022 05/16/2022 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
--- OUTSIDE RECORDS SUMMARY | 2024-11-28 09:20 | XMS_ITS | Encounter Summary ---
Author Organization [facility] Address [address] [place] [address] Phone Care Team Providers Care Office Machinery Or Equipment Installer Name Role Phone Jasson Layne MD Unavailable [phone] Brice Mondragon MD Primary Care Provider [phone] Fortino Alicia MD Primary Care Provider [phone] Encounter Details Date Type Department Care Team (Late st Contact Info) Description 12/24/2021 Lab Requisition [facility] Laboratory Services [address] [place] [address] Brice Mondragon MD [address] [place] [address] [facility] [address] [place] [address] Encounter for screening for COVID-19 [...] Associated Diagnosis Comments SARS-COV-2 BY MOLECULAR Routine 12/24/2021 8:29 AM CDT Encounter for screening for COVID-19 documented in this encounter Results * SARS-COV-2 BY MOLECULAR (12/24/2021 8:29 AM CDT) SARSCOV2 NOT DETECTED (Referen ce Range for this test is Not Detected ) [facility] THERMOFISHER FAST DX 12/24/2021 5:27 PM CDT [facility] Comment:This test was perfor med by a RT-PCR method. Other Non-Phlebotomy Collection / Unknown 12/24/2021 8:29 AM CDT 12/24/2021 9:42 AM CDT [facility]ative [facility] - 12/24/2021 5:27 PM CDT Authorized Fact Sheets about this test for providers and patients are available at: https://www.fda.gov/medical-devices/dxvaovxhb-qaiwbznaat-jnngxab-devices/emergen -us e-authorizations us Brice Mondragon MD MICROBIOLOGY - GENERAL ORDERAB LES Final Result [facility] [address] [id number], documented in this encounter Visit Diagnoses Diagnosis Encounter for screening for COVID-19 documented in this encounter Additional Health Concerns Infection Onset Date Last Indicated Resolved Time COVID - 19 10/08/2021 05/06/2022 05/16/2022 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
--- OUTSIDE RECORDS SUMMARY | 2024-11-28 09:20 | XMS_ITS | Encounter Summary ---
Author Organization [facility] Address [address] [place] [address] Phone Care Team Providers Care Ingot Header Name Role Phone Jasson Layne MD Unavailable [phone] Brice Mondragon MD Primary Care Provider [phone] Fortino Alicia MD Primary Care Provider [phone] Encounter Details Date Type Department Care Team (Late st Contact Info) Description 02/11/2022 Lab Requisition [facility] Laboratory Services [address] [place] [address] Brice Mondragon MD [address] [place] [address] [facility] [address] [place] [address] Encounter for screening for COVID-19 [...] Associated Diagnosis Comments SARS-COV-2 BY MOLECULAR Routine 02/11/2022 8:35 AM CDT Encounter for screening for COVID-19 documented in this encounter Results * SARS-COV-2 BY MOLECULAR (02/11/2022 8:35 AM CDT) SARSCOV2 NOT DETECTED (Referen ce Range for this test is Not Detected ) [facility] THERMOFISHER FAST DX 02/12/2022 11:58 AM CDT [facility] Comment:This test was perfor med by a RT-PCR method. Other Non-Phlebotomy Collection / Unknown 02/11/2022 8:35 AM CDT 02/11/2022 1:31 PM CDT Narrative [facility] - 02/12/2022 11:58 AM CDT Authorized Fact Sheets about this test for providers and patients are available at: https://www.fda.gov/medical-devices/opoxjlgmi-vqdkygfvat-bkedzum-devices/emergen -us e-authorizations us Brice Mondragon MD MICROBIOLOGY - GENERAL ORDERAB LES Final Result [facility] [address] [place] [address], documented in this encounter Visit Diagnoses Diagnosis Encounter for screening for COVID-19 documented in this encounter Additional Health Concerns Infection Onset Date Last Indicated Resolved Time COVID - 19 10/08/2021 05/06/2022 05/16/2022 12:1 6 AM EXTERN COVID - 19 06/24/2022 09/09/2022 09/19/2022 12:1 6 AM CDT documented as of this encounter Care Teams Ingot Header Relationship Specialty Start Date End Date Brice Mondragon MD [address] [place] [address] [address] [place] [address] PCP - General Family Medicine 03/12/20 11/05/22 Fortino Alicia MD [address] [place] [address] PCP - General Internal Medicine 11/06/22 Jasson Layne MD Consulting Physician Neurology 04/02/16 05/07/24 documented as of this encounter
--- OUTSIDE RECORDS SUMMARY | 2024-11-28 09:20 | XMS_ITS | Clinical Summary ---
Author Organization [address] Address [address] [place] [address] Care Team Providers Care Other Wood Processing Machine Operator Name Role Phone Chelo Manzo NP Unavailable [phone] Jasson Layne MD Unavailable [phone] Rowan Brown OD Unavailable [phone] Fortino Alicia MD Primary Care Provider [phone] Allergies Active Allergy Reactions Criticality Noted Date Comments Antihistamines - Alkylamine Bacitracin Other (See comments) Low 05/28/2020 Benzalkonium Other (See comments) Low 05/28/2020 Gramicidin D Other (See comments) Low 05/28/2020 Neomycin Riedthja-Qxnyavuawr-Hse ymyxin Other (See comments) Low 05/27/2020 Need clarrificaiton Polymyxin B Tetanus Toxoid Unknown 03/12/2020 Medications folic acid (FOLVITE) 1 mg tablet take 1 tablet (1MG) by oral route every day 0 1 Active meloxicam (MOBIC) 15 mg tablet take 1 tablet (15MG) by oral route every day 0 1 Active levothyroxine sodium (TIROSINT) 100 mcg capsule instill 1 by Rectal route every week 0 1 Active loratadine (CLARITIN) 10 mg tablet take 1 tablet (10MG) by oral route every day 0 1 Active levETIRAcetam (KEPPRA) 500 mg tablet take 1 tablet (500MG) by oral route 2 times every day 0 11/10/201 1 Active fluticasone (FLONASE) 50 mcg/actuation nasal spray Administer 2 sprays into each nostril daily. Active memantine XR (NAMENDA XR) 28 mg capsule,sprinkl e,ER 24hrIndications :Moderate to Severe Alzheimer's Type Dementia Take 28 mg by mouth daily. Active omeprazole (PriLOSEC) 20 mg capsule Take 20 mg by mouth daily. Active METOPROLOL TARTRATE CAPSULE 12.5 MG Acti ve lacosamide (VIMPAT) 100 mg tabletIndicatio ns:seizures Take 1 tablet (100 mg total) by mouth 2 (two) times a day 180 tablet 3 5 Active atorvastatin (LIPITOR) 20 mg tablet Take 1 tablet (20 mg total) by mouth daily 1 Active Active Problems Problem Noted Date Diagnosed Date Acute cholecystitis 09/03/2022 Gall stone pancreatitis 09/03/2022 Hypokalemia 09/03/2022 GERD (gastroesophageal reflux disease) 3 Hypomagnesemia 09/03/2022 Seizures 09/03/2022 Fall 05/02/2021 Assessment & Plan (11/23/2024 1:43 PM CDT): Patient had a facial injury after fall. Lab testing including a CT of the head CT of the neck were unremarkable. Lab work was essentially unremarkable. Urinalysis was unremarkable Will follow ordered PT evaluation Assessment & Plan (05/02/2021 2:00 PM CDT): Thought to have a strain: Please see below: XR HIP 2-3 VIEWS W/PELVIS UNILATERAL LEFT Final Result IMPRESSION: 1. No acute fracture. 2. Mild left hip osteoarthritis. URINALYSIS REFLEX IF INDICATED BY ABNORMAL RESULTS Final Result Procedures Imaging Results XR HIP 2-3 VIEWS W/PELVIS UNILATERAL LEFT (Final result) Result time 04/30/21 12:07:08 Final result by Jared Hou MD (04/30/21 12:07:08) Impression: IMPRESSION: 1. No acute fracture. 2. Mild left hip osteoarthritis. Narrative: EXAM DESCRIPTION: 1. XR HIP 2-3 VIEWS W/PELVIS UNILATERAL LEFT REASON FOR STUDY: patient had a fall april 02. today patient bent over and exp left hip erienced pain. no trauma today TECHNIQUE: Three views submitted without comparison. FINDINGS: There are no acute fractures. Alignment is normal. There is mild left hip osteoarthritis. There is mild right hip osteoarthritis. THIS IS AN ELECTRONICALLY VERIFIED FINAL REPORT 04/30/2021 12:04 PM - Electronically signed by Jared Hou M.D. MF: NATE Report ID: [id number] Reading Location: [id number] Coding Clinical Impression 1. Hip strain, left, initial encounter Patient's imaging and urinalysis are negative. She is feeling well. Advised rest, ice/heat, tylenol if needed and to return for reevaluation if her sx change or worsen. This was relayed to patient and staff whom expressed understanding. c ontinue meloxicam, Stroke-like symptoms 06/28/2020 S/P laparoscopic cholecystectomy 04/03/2020 Assessment & Plan (04/03/2020 10:04 AM CDT): Images from the original note were not included. Recently underwent ERCP and uneventful lap heather Vitamin D deficiency 09/03/2017 Assessment & Plan (06/14/2019 9:58 AM TANK WAGON DRIVER): She has been adequately replaced with a level of 67 Assessment & Plan (12/21/2018 10:50 AM CDT): Vitamin-D is up to 39.1 on latest labs from October we will continue to follow on current regimen Assessment & Plan (06/10/2018 9:08 AM TANK WAGON DRIVER): Vitamin-D is up to 67 no changes currently Assessment & Plan (09/03/2017 9:14 AM TANK WAGON DRIVER): We will supplement with 12 weeks of vitamin-D BMI 25.0-25.9,adult 06/01/2017 Overview (09/03/2017): BMI Follow-up includes: nutrition counseling, exercise counseling and education provided. Assessment & Plan (09/17/2023 10:42 AM CDT): BMI Follow-up includes: nutrition counseling, exercise counseling, and education provided. Assessment & Plan (06/01/2017 8:38 AM TANK WAGON DRIVER): BMI Follow-up includes: nutrition counseling, exercise counseling and education provided. Medicare annual wellness visit, subsequent 06/01 Assessment & Plan (09/18/2024 9:10 AM CDT): A Medicare Annual Wellness Visit (AWV) was done today as well. The patient filled out a depression screen, functional assessment screen, health risk assessment, and other physicians list. All the elements of this exam were completed as outlined by CMS. Please note that the documentation of this is split between paper documentation and this electronic record. Assessment & Plan (09/17/2023 10:45 AM CDT): A Medicare Annual Wellness Visit (AWV) was done today as well. The patient filled out a depression screen, functional assessment screen, health risk assessment, and other physicians list. All the elements of this exam were completed as outlined by CMS. Please note that the documentation of this is split between paper documentation and this electronic record. Assessment & Plan (09/03/2022 9:02 AM TANK WAGON DRIVER): A Medicare Annual Wellness Visit (AWV) was done today as well. The patient filled out a depression screen, functional assessment screen, health risk assessment, and other physicians list. All the elements of this exam were completed as outlined by CMS. Please note that the documentation of this is split between paper documentation and this electronic record. Assessment & Plan (08/27/2021 8:45 AM TANK WAGON DRIVER): A Medicare Annual Wellness Visit (AWV) was done today as well. The patient filled out a depression screen, functional assessment screen, health risk assessment, and other physicians list. All the elements of this exam were completed as outlined by CMS. Please note that the documentation of this is split between paper documentation and this electronic record. Assessment & Plan (06/06/2020 9:03 AM TANK WAGON DRIVER): A Medicare Annual Wellness Visit (AWV) was done today as well. The patient filled out a depression screen, functional assessment screen, health risk assessment, and other physicians list. All the elements of this exam were completed as outlined by CMS. Please note that the documentation of this is split between paper documentation and this electronic record. Assessment & Plan (06/14/2019 9:52 AM TANK WAGON DRIVER): A Medicare Annual Wellness Visit (AWV) was done today as well. The patient filled out a depression screen, functional assessment screen, health risk assessment, and other physicians list. All the elements of this exam were completed as outlined by CMS. Please note that the documentation of this is split between paper documentation and this electronic record. Assessment & Plan (06/10/2018 9:08 AM TANK WAGON DRIVER): A Medicare Annual Wellness Visit (AWV) was done today as well. The patient filled out a depression screen, functional assessment screen, health risk assessment, and other physicians list. All the elements of this exam were completed as outlined by CMS. Please note that the documentation of this is split between paper documentation and this electronic record. I reviewed all of her lab work today she is stable at this time Assessment & Plan (06/01/2017 9:07 AM TANK WAGON DRIVER): A Medicare Annual Wellness Visit (AWV) was done today as well. The patient filled out a depression screen, functional assessment screen, health risk assessment, and other physicians list. All the elements of this exam were completed as outlined by CMS. Please note that the documentation of this is split between paper documentation and this electronic record. Pain in both feet 06/01/2017 Assessment & Plan (09/03/2017 9:15 AM TANK WAGON DRIVER): She is here fo her manager of training currently no new issues r 6 month podiatry follow- up continues to follow with Assessment & Plan (06/01/2017 9:10 AM TANK WAGON DRIVER): She is having quite a few complaints about her feet she already sees a manager of training . 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): EPILEP NOS W/O INTR EPIL Assessment & Plan (09/17/2023 10:46 AM CDT): No current reported seizure Assessment & Plan (09/03/2022 9:01 AM TANK WAGON DRIVER): No current reported seizure Assessment & Plan (06/14/2019 9:57 AM TANK WAGON DRIVER): No current reported seizure Assessment & Plan (12/21/2018 10:48 AM CDT): No change currently continue same Psychosis 2015 Overview (10/02/2016): PSYCHOSIS NOS Assessment & Plan (08/27/2021 8:49 AM TANK WAGON DRIVER): No reported episodes Assessment & Plan (04/03/2020 10:04 AM CDT): No reported episodes Assessment & Plan (06/14/2019 9:58 AM TANK WAGON DRIVER): No reported episodes Assessment & Plan (06/01/2017 9:10 AM TANK WAGON DRIVER): No changes currently Hypothyroid 2015 Overview (09/03/2022): HYPOTHYROIDISM NOS Assessment & Plan (09/17/2023 10:46 AM CDT): Reviewed her current labs including thyroid, continue current dose Assessment & Plan (06/14/2019 9:58 AM TANK WAGON DRIVER): Reviewed her current labs including thyroid, continue current dose Assessment & Plan (12/21/2018 10:48 AM CDT): Active thyroid hormone is controlled Assessment & Plan (06/10/2018 9:08 AM TANK WAGON DRIVER): Active thyroid hormone is controlled Assessment & Plan (06/01/2017 9:09 AM TANK WAGON DRIVER): I reviewed her thyroid her active thyroid hormone is normal continue the same Atopic rhinitis 2015 Overview (10/02/2016): ALLERGIC RHINITIS NOS Assessment & Plan (06/01/2017 9:09 AM TANK WAGON DRIVER): She continues to have some dry skin issues Dementia 11/11/2013 Overview (10/02/2016): Dementia, unspecified, without behavioral disturba Assessment & Plan (06/14/2019 9:58 AM TANK WAGON DRIVER): No change currently follow as clinical course dictates Assessment & Plan (12/21/2018 10:49 AM CDT): No change currently in her dementia continue same Assessment & Plan (06/01/2017 9:09 AM TANK WAGON DRIVER): No change currently in her dementia continue same Resolved Problems Problem Noted Date Diagnosed Date Resolved Date BMI 25.0-25.9,adult 06/10/2018 06/06/20 20 Overview (06/10/2018): BMI Follow-up includes: nutrition counseling, exercise counseling and education provided. BMI 21.0-21.9, adult 12/02/2017 020 Assessment & Plan (12/02/2017 1:05 PM CDT): BMI Follow-up includes: nutrition counseling, exercise counseling and education provided. Encounters Date Type Department Care Team Description 11/23/2024 1:30 PM CDT Office Visit [address] [address] Fortino Alicia MD Mentally disabled (Primary Dx); Alzheimer's dementia with mood disturbance, unspecified dementia severity, unspecified timing of dementia onset (HCC); Fall, sequela 10/26/2024 11:30 AM CDT Office Visit [address] [phone] Fortino Alicia MD Fall, sequela (Primary Dx) 10/19/2024 Orders Only [address] [phone] Sasha Powers MA 10/19/[address] [phone] Melissa Bowen MA Chart Review ([facility] med adh) 10/13/[address] [address] Melissa Bowen MA Unsuccessful Phone Call 1 ([facility] med adh) 09/19/2024 Telephone [facility] Accountable Care Organization [address] [place] [id number] Katherin Riojas Chart Review ([facility] Med Adherence ) 09/18/2024 9:00 AM CDT Office Visit [address] [phone] Fortino Alicia MD Medicare annual wellness visit, subsequent (Primary Dx); Mentally disabled; Non-refractory epilepsy (HCC); Schizoaffective disorder, unspecified type (HCC); Fall, sequela 09/18/2024 Orders Only [facility] [address] [place] [phone] Fortino Alicia MD 08/31/2024 Orders Only [facility] [address] [phone] Fortino Alicia MD 08/31/2024 Telephone [facility] [address] [phone] Fortino Alicia MD from Last 3 Months Immunizations Immunization Administration Dates Next Due COVID-19 mRNA ([email or web address]) 0.3 m L (30 mcg) vaccine (12 years and up) 05/09/2024 Influenza, Quadrivalent, Spl it, Intramuscular 03/11/2016 Influenza, Quadrivalent, Spl it, Preservative Free, Intramuscular 04/09/2015,04/16/2014 Influenza, Trivalent, IM (MDV) 05/15/2013,2010 Influenza, Trivalent, Preser vative Free, Intramuscular 04/10/2017 Influenza, Unspecified 05/02/2024,2022,05/06/2022,05/07,05/07/2020 Pneumococcal Polysaccharide PPV23 06/14/2006 Medical History Medical History Date Comments Epilepsy (HCC) Hypothyroidism Psychosis (HCC) Dementia (HCC) Mental retardation Social History Tobacco Use Types Packs/Day Years Used Date Smoking Tobacco: Never Smokeless Tobacco: Never Tobacco Cessation:Counseling Given: No Alcohol Use Standard Drinks/Week Comments No 0 (1 standard drink = 0.6 oz pur e alcohol) PHQ-2 Answer Date Recorded PHQ-2 Total Score (If total score is 3 or more points, staff should administer the PHQ-9) 0 09/18/2024 Comments No Sex and Gender Information Value Date Recorded Sex Assigned at Not on file Legal Sex Female 1:11 AM TANK WAGON DRIVER Gender Identity Not on file Sexual Orientation Not on file Obstetrics History Last Filed Vital Signs Vital Sign Reading Time Taken Comments Blood Pressure 126/84 11/23/2024 1:39 PM CDT Pulse 72 11/23/2024 1:39 PM CDT Temperature 36.2 C (97.1 F) 09/03/2022 9:00 AM TANK WAGON DRIVER Respiratory Rate 14 04/03/2020 10:03 AM CDT Oxygen Saturation 98% 11/23/2024 1:39 PM CDT Inhaled Oxygen Concentration - - Weight 63 kg (139 lb) 11/23/2024 1:39 PM CDT Height 152.4 cm (5') 11/23/2024 1:39 PM CDT Body Mass Index 27.15 11/23/2024 1:39 PM CDT Plan of Treatment Health Maintenance Due Date Last Done Comments Hepatitis C Screening 1950 DTaP/Tdap/Td Vaccine (1 - Tdap) 1962 Hepatitis B Screening 1969 Zoster Vaccine (1 of 2) 2001 Pneumococcal vaccine 65+ (2 of 2 - PCV) 06/14/2007 06/14/2006 Covid-19 Vaccine (5 2023-2 5 season) 2024 05/09/2024, 05/02/2021, 09/02/2020, Additional history exists Breast Cancer Screening-Mammogram 01/04/2025 01/05/2024, 12/08/2022, 12/08/2022, Additional history exists Osteoporosis Screening-Bone Density Scan 03/05/2025 03/05/2023, 03/05/2023, 09/19/2020, Additional history exists Depression Screening 09/18/2025 09/18/2024, 09/17/2023, 09/03/2022, Additional history exists Fall Risk Assessment 09/18/2025 09/18/2024, 09/17/2023, 09/03/2022, Additional history exists Well Visit 65+ 09/18/2025 09/18/2024, 08/27, 09/03/2022, Additional history exists Colon Cancer Screening-Colonoscopy 10/21/2027 10/20/2017, 06/01/2011 Colon Cancer Screening-CT Colonography Discontinued 10/20/2017, 06/01/2011 Colon Cancer Screening-DNA Stool Discontinued 10/21/19 18, 06/01/2011 Colon Cancer Screening-FIT Discontinued 10/20/2017, Colon Cancer Screening-Sigmoidoscopy Discontinued 10/20/2017, 06/01/2011 Influenza Vaccine Completed 05/02/2024, , 05/06/2022, Additional history exists Procedures Procedure Name Priority Date/Time Associated Diagnosis Comments SCREENING MAMMOGRAM 2D BILATERAL Schedule Routine, Read Routine (OP Routine) 01/05/2024 1:29 PM CDT COLONOSCOPY 10/20/2017 8:05 AM CDT from Last 3 Months or Most Recently Relevant to Health Maintenance Results * Screening Mammogram 2D Bilateral (01/05/2024 1:29 PM CDT) Anatomical Region Laterality Modality Breast Bilateral Mammography us Historical Provider MD [facility] MAMMO PROCEDURES Kellie l Result * COLONOSCOPY (10/20/2017 8:05 AM CDT) Anatomical Region Laterality Modality Other Narrative Procedure Note Lina Garzon MD - 10/20/2017 8:05 AM CDT Digestive [facility] Patient Name: Jovana Diaz Procedure Date: 10/20/2017 8:05 AM Date of : 1950 Admit Type: Outpatient Age: 67 Gender: Female Attending MD: Lina Garzon MD Room: [facility] ENDOSCOPY ROOM 2 Note Status: Finalized Patient Profile: 67 WF, no family h/o colon cancer, patiebnt lives in [facility]. Procedure: Colonoscopy Indications: Screening for colorectal malignant neoplasm, Last colonoscopy: April 2006 Referring MD: Fortino Alicia MD Providers: Lina Garzon MD Impression: - The entire examined colon is normal. - Small internal hemorrhoids. - No specimens collected. Recommendation: - Continue present medications. - Repeat colonoscopy in 10 years for screeningpurposes. Medicines: Monitored Anesthesia Care Complications: No immediate complications. Estimated Blood Loss: Estimated blood loss: none. Procedure: Pre-Anesthesia Assessment: - Prior to the procedure, a History and Physical was performed, and patient medications and allergieswere reviewed. The patient's tolerance of previous anesthesia was also reviewed. The risks and benefitsof the procedure and the sedation options and riskswere discussed with the patient. All questions were answered, and informed consent was obtained. Prior Anticoagulants: The patient has taken no previous anticoagulant or antiplatelet agents. ASA Grade Assessment: II - A patient with mild systemicdisease. After reviewing the risks and benefits, the patientwas deemed in satisfactory condition to undergo the procedure. The benefits, risks and alternatives of theprocedure and sedation were discussed and informed consent was obtained. All questions were answered. Please referto the signed informed consent document in the medical record. The scope was passed under direct vision.The Pediatric Colonoscope PCF-H190L [id number] was introduced through the anus and advanced to the the cecum, identified by appendiceal orifice andileocecal valve. The colonoscopy was performed without difficulty. The patient tolerated the procedurewell. The quality of the bowel preparation wasexcellent. Findings: The perianal and digital rectal examinations were normal. The colon (entire examined portion) appeared normal. No polyps and no mass lesions. Endoscopically no diverticular changes noted. Internal hemorrhoids were found during retroflexion. The hemorrhoids were small. Electronically signed by Lina Garzon M.D. Lina Garzon MD 10/20/2017 8:52:17 AM Number of Addenda: 0 Note Initiated On: 10/20/2017 8:05 AM Procedure Code(s): --- Professional --- G0121, Colorectal cancer screening; colonoscopy on individual not meeting criteria for high risk Diagnosis Code(s): --- Professional --- Z12.11, Encounter for screening for malignant neoplasm of colon K64.8, Other hemorrhoids CPT copyright 2014 [employer]. All rights reserved. The codes documented in this report are preliminary and upon internal grinder set up operator reviewmay be revised to meet current compliance requirements. Recognized by the [employer] for promoting quality in endoscopy Lina Garzon MD ENDOSCOPY PROCEDURES Final Result from Last 3 Months or Most Recently Relevant to Health Maintenance Insurance [facility] MEDICARE ADVANTAGE [facility] MEDICARE ADVANTAGE Advance Directives For more information, please contact: [phone] * Full Code (Latest Code Status on File) Date Activated Date Inactivated Comments 10/20/2017 7:58 AM 10/20/2017 11:39 AM Care Teams Other Wood Processing Machine Operator Relationship Specialty Start Date End Date Fortino Alicia MD [address] [place] [address] [address] PCP - General Internal Medicine 08/27/21 Chelo Manzo NP Nurse Practitioner Obstetrics and Gynecology 06/10/18 Jasson Layne MD [address] [place] [address] [address] Referring Physician Neurology 06/10/18 Rowan Brown OD [address] [place] [facility] [address] [place] [address] Optometry 06/10/18
--- OUTSIDE RECORDS SUMMARY | 2024-11-28 09:20 | XMS_ITS | Encounter Summary ---
Author Organization [facility] Address [address] [place] [address] Phone Care Team Providers Care Evaluation Analyst Name Role Phone Jasson Layne MD Unavailable [phone] Brice Mondragon MD Primary Care Provider [phone] Fortino Alicia MD Primary Care Provider [phone] Encounter Details Date Type Department Care Team (Late st Contact Info) Description 04/15/2022 Lab Requisition [facility] [address] [place] [address] Brice Mondragon MD [address] [place] [address] [facility] [address] [place] [address] Encounter for screening for COVID-19 [...] Associated Diagnosis Comments SARS-COV-2 BY MOLECULAR Routine 04/15/2022 10:08 AM CDT Encounter for screening for COVID-19 documented in this encounter Results * SARS-COV-2 BY MOLECULAR (04/15/2022 10:08 AM CDT) SARSCOV2 NOT DETECTED (Referen ce Range for this test is Not Detected ) [facility] THERMOFISHER FAST DX 04/15/2022 11:59 PM CDT [facility] Comment:This test was perfor med by a RT-PCR method. Other Non-Phlebotomy Collection / Unknown 04/15/2022 10:08 AM CDT 04/15/2022 11:27 AM CDT Narrative [facility] - 04/15/2022 11:59 PM CDT Authorized Fact Sheets about this test for providers and patients are available at: https://www.fda.gov/medical-devices/mftgakznl-lpeeuslhkm-cweqpkc-devices/emergen -us e-authorizations us Brice Mondragon MD MICROBIOLOGY - GENERAL ORDERAB LES Final Result [facility] [address] [place] [address], documented in this encounter Visit Diagnoses Diagnosis Encounter for screening for COVID-19 documented in this encounter Additional Health Concerns Infection Onset Date Last Indicated Resolved Time COVID - 19 10/08/2021 05/06/2022 05/16/2022 12:1 6 AM DESK DIRECTOR COVID - 19 06/24/2022 09/09/2022 09/19/2022 12:1 6 AM CDT documented as of this encounter Care Teams Evaluation Analyst Relationship Specialty Start Date End Date Brice Mondragon MD [address] [place] [address] [address] [place] [address] PCP - General Family Medicine 03/12/20 11/05/22 Fortino Alicia MD [address] [place] [address] PCP - General Internal Medicine 11/06/22 Jasson Layne MD Consulting Physician Neurology 04/02/16 05/07/24 documented as of this encounter
--- OUTSIDE RECORDS SUMMARY | 2024-11-28 09:20 | XMS_ITS | Encounter Summary ---
Author Organization [facility] Address [address] [place] [address] Phone Care Team Providers Care Respiratory Therapy Manager Name Role Phone Jasson Layne MD Unavailable [phone] Brice Mondragon MD Primary Care Provider [phone] Fortino Alicia MD Primary Care Provider [phone] Encounter Details Date Type Department Care Team (Late st Contact Info) Description 01/21/2022 Lab Requisition [facility] Laboratory Services 1 [place] [address] Brice Mondragon MD [address] [place] [address] [facility] [address] [place] [address] Encounter for screening for COVID-19 [...] Associated Diagnosis Comments SARS-COV-2 BY MOLECULAR Routine 01/21/2022 8:31 AM CDT Encounter for screening for COVID-19 documented in this encounter Results * SARS-COV-2 BY MOLECULAR (01/21/2022 8:31 AM CDT) SARSCOV2 NOT DETECTED (Referen ce Range for this test is Not Detected ) [facility] THERMOFISHER FAST DX 01/22/2022 12:23 AM CDT [facility] Comment:This test was perfor med by a RT-PCR method. Other Non-Phlebotomy Collection / Unknown 01/21/2022 8:31 AM CDT 01/21/2022 12:13 PM CDT Narrative [facility] - 01/22/2022 12:23 AM CDT Authorized Fact Sheets about this test for providers and patients are available at: https://www.fda.gov/medical-devices/vfzokeykb-ahvdwedqpj-yfiioit-devices/emergen -us e-authorizations us Brice Mondragon MD MICROBIOLOGY - GENERAL ORDERAB LES Final Result [facility] [address] [place] [address], documented in this encounter Visit Diagnoses Diagnosis Encounter for screening for COVID-19 documented in this encounter Additional Health Concerns Infection Onset Date Last Indicated Resolved Time COVID - 19 10/08/2021 05/06/2022 05/16/2022 12:1 6 AM ATTENDING PSYCHIATRIST COVID - 19 06/24/2022 09/09/2022 09/19/2022 12:1 6 AM CDT documented as of this encounter Care Teams Respiratory Therapy Manager Relationship Specialty Start Date End Date Brice Mondragon MD [address] [address] [address] [place] [address] PCP - General Family Medicine 03/12/20 11/05/22 Fortino Alicia MD [address] [facility] [address] [place] [address] PCP - General Internal Medicine 11/06/22 Jasson Layne MD Consulting Physician Neurology 04/02/16 05/07/24 documented as of this encounter
--- OUTSIDE RECORDS SUMMARY | 2024-11-28 09:20 | XMS_ITS | Encounter Summary ---
Author Organization [facility] Address [address] [place] [address] Phone Care Team Providers Care Health Club Attendant Name Role Phone Jasson Layne MD Unavailable [phone] Brice Mondragon MD Primary Care Provider [phone] Fortino Alicia MD Primary Care Provider [phone] Encounter Details Date Type Department Care Team (Late st Contact Info) Description 12/10/2021 Lab Requisition [facility] Laboratory Services 1 [place] [address] Brice Mondragon MD [address] [place] [address] [address] [place] [address] Encounter for screening for COVID-19 [...] Associated Diagnosis Comments SARS-COV-2 BY MOLECULAR Routine 12/10/2021 8:42 AM CDT Encounter for screening for COVID-19 documented in this encounter Results * SARS-COV-2 BY MOLECULAR (12/10/2021 8:42 AM CDT) SARSCOV2 NOT DETECTED (Referen ce Range for this test is Not Detected ) [facility] THERMOFISHER FAST DX 12/11/2021 8:31 AM CDT [facility] Comment:This test was perfor med by a RT-PCR method. Other Non-Phlebotomy Collection / Unknown 12/10/2021 8:42 AM CDT 12/10/2021 9:23 AM CDT Narrative [facility] - 12/11/2021 8:31 AM CDT Authorized Fact Sheets about this test for providers and patients are available at: https://www.fda.gov/medical-devices/zdpbolhuv-upabktjxbi-bllrrxf-devices/emergen -us e-authorizations us Brice Mondragon MD MICROBIOLOGY - GENERAL ORDERAB LES Final Result [facility] [address] [place] [address], documented in this encounter Visit Diagnoses Diagnosis Encounter for screening for COVID-19 documented in this encounter Additional Health Concerns Infection Onset Date Last Indicated Resolved Time COVID - 19 10/08/2021 05/06/2022 05/16/2022 12:1 6 AM DROP WIRE ALIGNER COVID - 19 06/24/2022 09/09/2022 09/19/2022 12:1 6 AM CDT documented as of this encounter Care Teams Health Club Attendant Relationship Specialty Start Date End Date Brice Mondragon MD [address] [place] [address] [address] [place] [address] PCP - General Family Medicine 03/12/20 11/05/22 Fortino Alicia MD [address] [place] [address] PCP - General Internal Medicine 11/06/22 Jasson Layne MD Consulting Physician Neurology 04/02/16 05/07/24 documented as of this encounter
--- OUTSIDE RECORDS SUMMARY | 2024-11-28 09:20 | XMS_ITS | Encounter Summary ---
Author Organization [facility] Address [address] [place] [address] Phone Care Team Providers Care Technical Expert Name Role Phone Jasson Layne MD Unavailable [phone] Brice Mondragon MD Primary Care Provider [phone] Fortino Alicia MD Primary Care Provider [phone] Encounter Details Date Type Department Care Team (Late st Contact Info) Description 10/22/2021 Lab Requisition [facility] Laboratory Services 1 [place] [address] Brice Mondragon MD [address] [place] [address] [facility] [address] [place] [address] Encounter for screening for COVID-19 [...] Associated Diagnosis Comments SARS-COV-2 BY MOLECULAR Routine 10/22/2021 9:36 AM CDT Encounter for screening for COVID-19 documented in this encounter Results * SARS-COV-2 BY MOLECULAR (10/22/2021 9:36 AM CDT) SARSCOV2 NOT DETECTED (Referen ce Range for this test is Not Detected ) [facility] THERMOFISHER FAST DX 10/23/2021 11:[address] [facility] Comment:This test was perfor med by a RT-PCR method. Other Non-Phlebotomy Collection / Unknown 10/22/2021 9:36 AM CDT 10/22/2021 2:[address] [facility] - 10/23/2021 11:37 AM CDT Authorized Fact Sheets about this test for providers and patients are available at: https://www.fda.gov/medical-devices/evlfqrsid-lpfwasaavy-dfeqdmp-devices/emergen -us e-authorizations us Brice Mondragon MD MICROBIOLOGY - GENERAL ORDERAB LES Final Result [facility] [address] [place] [address], documented in this encounter Visit Diagnoses Diagnosis Encounter for screening for COVID-19 documented in this encounter Additional Health Concerns Infection Onset Date Last Indicated Resolved Time COVID - 19 10/08/2021 05/06/2022 05/16/2022 12:1 6 AM TRAFFIC CHIEF COVID - 19 06/24/2022 09/09/2022 09/19/2022 12:1 6 AM CDT documented as of this encounter Care Teams Technical Expert Relationship Specialty Start Date End Date Brice Mondragon MD [address] [place] [address] [address] [place] [address] PCP - General Family Medicine 03/12/20 11/05/22 Fortino Alicia MD [address] [facility] [address] [place] [address] PCP - General Internal Medicine 11/06/22 Jasson Layne MD Consulting Physician Neurology 04/02/16 05/07/24 documented as of this encounter
--- OUTSIDE RECORDS SUMMARY | 2024-11-28 09:20 | XMS_ITS | Encounter Summary ---
Author Organization [facility] Address [address] [place] [address] Phone Care Team Providers Care Bakery Team Leader Name Role Phone Jasson Layne MD Unavailable Brice Mondragon MD Primary Care Provider [phone] Fortino Alicia MD Primary Care Provider [phone] Encounter Details Date Type Department Care Team (Late st Contact Info) Description 07/23/2022 Lab Requisition [facility] Laboratory Services [address] [place] [address] Brice Mondragon MD [address] [place] [address] [facility] [address] [place] [address] Encounter for screening for COVID-19 [...] Associated Diagnosis Comments SARS-COV-2 BY MOLECULAR Routine 07/23/2022 8:44 AM WASHING MACHINE LOADER Encounter for screening for COVID-19 documented in this encounter Results * SARS-COV-2 BY MOLECULAR (07/23/2022 8:44 AM WASHING MACHINE LOADER) SARSCOV2 NOT DETECTED (Referen ce Range for this test is Not Detected ) [facility] THERMOFISHER FAST DX 07/23/2022 5:13 PM WASHING MACHINE LOADER [facility] Comment:This test was perfor med by a RT-PCR method. Other Non-Phlebotomy Collection / Unknown 07/23/2022 8:44 AM WASHING MACHINE LOADER 07/23/2022 10:15 AM WASHING MACHINE LOADER Narrative [facility] - 07/23/2022 5:13 PM WASHING MACHINE LOADER Authorized Fact Sheets about this test for providers and patients are available at: https://www.fda.gov/medical-devices/ddextiomh-kzhqsgfept-dupezis-devices/emergen cy-us e-authorizations us Brice Mondragon MD MICROBIOLOGY - GENERAL ORDERAB LES Final Result [facility] [address] [place] [id number], documented in this encounter Visit Diagnoses Diagnosis Encounter for screening for COVID-19 documented in this encounter Additional Health Concerns Infection Onset Date Last Indicated Resolved Time COVID - 19 06/24/2022 09/09/2022 09/19/2022 12:1 6 AM CDT documented as of this encounter Care Teams Bakery Team Leader Relationship Specialty Start Date End Date Brice Mondragon MD [address] [place] [address] [address] [place] [address] PCP - General Family Medicine 03/12/20 11/05/22 Fortino Alicia MD [address] [place] [address] PCP - General Internal Medicine 11/06/22 Jasson Layne MD Consulting Physician Neurology 04/02/16 05/07/24 documented as of this encounter
--- OUTSIDE RECORDS SUMMARY | 2024-11-28 09:20 | XMS_ITS | Encounter Summary ---
Author Organization [facility] Address [address] [place] [address] Phone Care Team Providers Care Board Member Name Role Phone Jasson Layne MD Unavailable [phone] Brice Mondragon MD Primary Care Provider Fortino Alicia MD Primary Care Provider [phone] Encounter Details Date Type Department Care Team (Late st Contact Info) Description 07/15/2022 Lab Requisition [facility] Laboratory Services 1 [place] [address] Brice Mondragon MD [address] [place] [address] [facility] [address] [place] [address] Encounter for screening for COVID-19 [...] Associated Diagnosis Comments SARS-COV-2 BY MOLECULAR Routine 07/15/2022 8:28 AM BRICK SETTER Encounter for screening for COVID-19 documented in this encounter Results * SARS-COV-2 BY MOLECULAR (07/15/2022 8:28 AM BRICK SETTER) SARSCOV2 NOT DETECTED (Referen ce Range for this test is Not Detected ) [facility] THERMOFISHER FAST DX 07/15/2022 8:36 PM BRICK SETTER [facility] Comment:This test was perfor med by a RT-PCR method. Other Non-Phlebotomy Collection / Unknown 07/15/2022 8:28 AM BRICK SETTER 07/15/2022 9:59 AM BRICK SETTER Narrative [facility] - 07/15/2022 8:36 PM BRICK SETTER Authorized Fact Sheets about this test for providers and patients are available at: https://www.fda.gov/medical-devices/xkmmxnokk-stqkvvknnf-ajvikve-devices/emergen cy-us e-authorizations us Brice Mondragon MD MICROBIOLOGY - GENERAL ORDERAB LES Final Result [facility] [address] [place] [id number], documented in this encounter Visit Diagnoses Diagnosis Encounter for screening for COVID-19 documented in this encounter Additional Health Concerns Infection Onset Date Last Indicated Resolved Time COVID - 19 06/24/2022 09/09/2022 09/19/2022 12:1 6 AM CDT documented as of this encounter Care Teams Board Member Relationship Specialty Start Date End Date Brice Mondragon MD [address] [place] [address] [address] [place] [address] PCP - General Family Medicine 03/12/20 11/05/22 Fortino Alicia MD [address] [place] [address] PCP - General Internal Medicine 11/06/22 Jasson Layne MD Consulting Physician Neurology 04/02/16 05/07/24 documented as of this encounter
--- OUTSIDE RECORDS SUMMARY | 2024-11-28 09:20 | XMS_ITS | Encounter Summary ---
Author Organization [facility] Address [address] [place] [address] Phone Care Team Providers Care Software Trainer Name Role Phone Jasson Layne MD Unavailable [phone] Brice Mondragon MD Primary Care Provider Fortino Alicia MD Primary Care Provider [phone] Encounter Details Date Type Department Care Team (Late st Contact Info) Description 01/28/2022 Lab Requisition [facility] Laboratory Services 1 [place] [address] Brice Mondragon MD [address] [place] [address] [facility] [address] [place] [address] Encounter for screening for COVID-19 [...] Associated Diagnosis Comments SARS-COV-2 BY MOLECULAR Routine 01/28/2022 9:35 AM CDT documented in this encounter Results * SARS-COV-2 BY MOLECULAR (01/28/2022 9:35 AM CDT) SARSCOV2 NOT DETECTED (Referayaz larry Range for this test is Not Detected ) [facility] THERMOFISHER FAST DX 01/29/2022 12:51 PM CDT [facility] Comment:This test was perfor med by a RT-PCR method. Other Non-Phlebotomy Collection / Unknown 01/28/2022 9:35 AM CDT 01/28/2022 1:02 PM CDT Narrative [facility] - 01/29/2022 12:51 PM CDT Authorized Fact Sheets about this test for providers and patients are available at: https://www.fda.gov/medical-devices/eytsoaray-nkeojpozkh-buusfeh-devices/emergen -us e-authorizations us Brice Mondragon MD MICROBIOLOGY - GENERAL ORDERAB LES Final Result [facility] [address] [place] [address], documented in this encounter Visit Diagnoses Diagnosis Encounter for screening for COVID-19 documented in this encounter Additional Health Concerns Infection Onset Date Last Indicated Resolved Time COVID - 19 10/08/2021 05/06/2022 05/16/2022 12:1 6 AM MANAGER FLORAL COVID - 19 06/24/2022 09/09/2022 09/19/2022 12:1 6 AM CDT documented as of this encounter Care Teams Software Trainer Relationship Specialty Start Date End Date Brice Mondragon MD 4 [facility] [address] [place] [address] PCP - General Family Medicine 03/12/20 11/05/22 Fortino Alicia MD [address] [place] [address] PCP - General Internal Medicine 11/06/22 Jasson Layne MD Consulting Physician Neurology 04/02/16 05/07/24 documented as of this encounter
--- OUTSIDE RECORDS SUMMARY | 2024-11-28 09:20 | XMS_ITS | Encounter Summary ---
Author Organization [facility] Address [address] [place] [address] Phone Care Team Providers Care 2Nd Grade Teacher Name Role Phone Jasson Layne MD Unavailable [phone] Brice Mondragon MD Primary Care Provider [phone] Fortino Alicia MD Primary Care Provider [phone] Encounter Details Date Type Department Care Team (Late st Contact Info) Description 03/25/2022 Lab Requisition [facility] Laboratory Services 1 [place] [address] Brice Mondragon MD [address] [place] [address] [facility] [address] [place] [address] Encounter for screening for COVID-19 [...] Associated Diagnosis Comments SARS-COV-2 BY MOLECULAR Routine 03/25/2022 10:08 AM CDT Encounter for screening for COVID-19 documented in this encounter Results * SARS-COV-2 BY MOLECULAR (03/25/2022 10:08 AM CDT) SARSCOV2 NOT DETECTED (Referen ce Range for this test is Not Detected ) [facility] THERMOFISHER FAST DX 03/26/2022 5:34 PM CDT [facility] Comment:This test was perfor med by a RT-PCR method. Other Non-Phlebotomy Collection / Unknown 03/25/2022 10:08 AM CDT 03/25/2022 11:58 AM CDT Narrative [facility] - 03/26/2022 5:34 PM CDT Authorized Fact Sheets about this test for providers and patients are available at: https://www.fda.gov/medical-devices/kmaryuvwg-rbmljqlmax-pdjtgyl-devices/emergen -us e-authorizations us Brice Mondragon MD MICROBIOLOGY - GENERAL ORDERAB LES Final Result [facility] [address] [place] [address], documented in this encounter Visit Diagnoses Diagnosis Encounter for screening for COVID-19 documented in this encounter Additional Health Concerns Infection Onset Date Last Indicated Resolved Time COVID - 19 10/08/2021 05/06/2022 05/16/2022 12:1 6 AM LIQUID FLOOR AND WALL APPLIER COVID - 19 06/24/2022 09/09/2022 09/19/2022 12:1 6 AM CDT documented as of this encounter Care Teams 2Nd Grade Teacher Relationship Specialty Start Date End Date Brice Mondragon MD [address] [place] [address] [address] [place] [address] PCP - General Family Medicine 03/12/20 11/05/22 Fortino Alicia MD [address] [facility] [address] [place] [address] PCP - General Internal Medicine 11/06/22 Jasson Layne MD Consulting Physician Neurology 04/02/16 05/07/24 documented as of this encounter
--- OUTSIDE RECORDS SUMMARY | 2024-11-28 09:20 | XMS_ITS | Encounter Summary ---
Author Organization [facility] Address [address] [place] [address] Phone Care Team Providers Care Market Research Worker Name Role Phone Jasson Layne MD Unavailable [phone] Brice Mondragon MD Primary Care Provider [phone] Fortino Alicia MD Primary Care Provider [phone] Encounter Details Date Type Department Care Team (Late st Contact Info) Description 04/08/2022 Lab Requisition [facility] Laboratory Services 1 [place] [address] Brice Mondragon MD [address] [place] [address] [facility] [address] [place] [address] Encounter for screening for COVID-19 [...] Associated Diagnosis Comments SARS-COV-2 BY MOLECULAR Routine 04/08/2022 9:40 AM CDT Encounter for screening for COVID-19 documented in this encounter Results * SARS-COV-2 BY MOLECULAR (04/08/2022 9:40 AM CDT) SARSCOV2 NOT DETECTED (Referen ce Range for this test is Not Detected ) [facility] THERMOFISHER FAST DX 04/09/2022 12:18 AM CDT [facility] Comment:This test was perfor med by a RT-PCR method. Other Non-Phlebotomy Collection / Unknown 04/08/2022 9:40 AM CDT 04/08/2022 8:23 PM CDT Narrative [facility] - 04/09/2022 12:18 AM CDT Authorized Fact Sheets about this test for providers and patients are available at: https://www.fda.gov/medical-devices/sefvsmrtw-nwanngpnkh-dnrqexw-devices/emergen -us e-authorizations us Brice Mondragon MD MICROBIOLOGY - GENERAL ORDERAB LES Final Result [facility] [address] [place] [address], documented in this encounter Visit Diagnoses Diagnosis Encounter for screening for COVID-19 documented in this encounter Additional Health Concerns Infection Onset Date Last Indicated Resolved Time COVID - 19 10/08/2021 05/06/2022 05/16/2022 12:1 6 AM DOCUMENTUM CONSULTANT COVID - 19 06/24/2022 09/09/2022 09/19/2022 12:1 6 AM CDT documented as of this encounter Care Teams Market Research Worker Relationship Specialty Start Date End Date Brice Mondragon MD [address] [place] [address] [address] [place] [address] PCP - General Family Medicine 03/12/20 11/05/22 Fortino Alicia MD [address] [facility] [address] [place] [address] PCP - General Internal Medicine 11/06/22 Jasson Layne MD Consulting Physician Neurology 04/02/16 05/07/24 documented as of this encounter
--- OUTSIDE RECORDS SUMMARY | 2024-11-28 09:20 | XMS_ITS | Encounter Summary ---
Author Organization [facility] Address [address] [place] [address] Phone Care Team Providers Care Aerosol Line Operator Name Role Phone Jasson Layne MD Unavailable [phone] Brice Mondragon MD Primary Care Provider [phone] Fortino Alicia MD Primary Care Provider [phone] Encounter Details Date Type Department Care Team (Late st Contact Info) Description 10/15/2021 Lab Requisition [facility] Laboratory Services 1 [place] [address] Brice Mondragon MD [address] [place] [address] [facility] [address] [place] [address] Encounter for screening for COVID-19 [...] Associated Diagnosis Comments SARS-COV-2 BY MOLECULAR Routine 10/15/2021 9:35 AM CDT Encounter for screening for COVID-19 documented in this encounter Results * SARS-COV-2 BY MOLECULAR (10/15/2021 9:35 AM CDT) SARSCOV2 NOT DETECTED (Referen ce Range for this test is Not Detected ) [facility] THERMOFISHER FAST DX 10/15/2021 11:12 PM CDT [facility] Comment:This test was perfor med by a RT-PCR method. Other No Phlebotomy Charged / Unknown 10/15/2021 9:35 AM CDT 10/15/2021 2:05 PM CDT Narrative [facility] - 10/15/2021 11:12 PM CDT Authorized Fact Sheets about this test for providers and patients are available at: https://www.fda.gov/medical-devices/xnonvrssr-gsirjwjulu-tqtiipu-devices/emergen -us e-authorizations us Brice Mondragon MD MICROBIOLOGY - GENERAL ORDERAB LES Final Result [facility] [address] [place] [id number], documented in this encounter Visit Diagnoses Diagnosis Encounter for screening for COVID-19 documented in this encounter Additional Health Concerns Infection Onset Date Last Indicated Resolved Time COVID - 19 10/08/2021 05/06/2022 05/16/2022 12:1 6 AM ROUGH AND TRUEING MACHINE OPERATOR COVID - 19 06/24/2022 09/09/2022 09/19/2022 12:1 6 AM CDT documented as of this encounter Care Teams Aerosol Line Operator Relationship Specialty Start Date End Date Brice Mondragon MD [address] [place] [address] [address] [place] [address] PCP - General Family Medicine 03/12/20 11/05/22 Fortino Alicia MD [address] [place] [address] PCP - General Internal Medicine 11/06/22 Jasson Layne MD Consulting Physician Neurology 04/02/16 05/07/24 documented as of this encounter
--- OUTSIDE RECORDS SUMMARY | 2024-11-28 09:20 | XMS_ITS | Encounter Summary ---
Author Organization [facility] Address [address] [place] [address] Phone Care Team Providers Care Glass Edger Name Role Phone Jasson Layne MD Unavailable [phone] Brice Mondragon MD Primary Care Provider [phone] Fortino Alicia MD Primary Care Provider [phone] Encounter Details Date Type Department Care Team (Late st Contact Info) Description 10/08/2021 Lab Requisition [facility] 1 [place] [address] Brice Mondragon MD [address] [place] [address] [facility] [address] [place] [address] Encounter for screening for COVID-19 [...] Associated Diagnosis Comments SARS-COV-2 BY MOLECULAR Routine 10/08/2021 9:09 AM CDT Encounter for screening for COVID-19 documented in this encounter Results * SARS-COV-2 BY MOLECULAR (10/08/2021 9:09 AM CDT) SARSCOV2 NOT DETECTED (Referen ce Range for this test is Not Detected ) [facility] THERMOFISHER FAST DX 10/09/2021 6:24 AM CDT [facility] Comment:This test was perfor med by a RT-PCR method. Other No Phlebotomy Charged / Unknown 10/08/2021 9:09 AM CDT 10/08/2021 12:47 PM CDT Narrative [facility] - 10/09/2021 6:24 AM CDT Authorized Fact Sheets about this test for providers and patients are available at: https://www.fda.gov/medical-devices/rhxmkslzu-obaapzlxxo-ljjxmwg-devices/emergen -us e-authorizations us Brice Mondragon MD MICROBIOLOGY - GENERAL ORDERAB LES Final Result [facility] [address] [id number], documented in this encounter Visit Diagnoses Diagnosis Encounter for screening for COVID-19 documented in this encounter Additional Health Concerns Infection Onset Date Last Indicated Resolved Time COVID - 19 10/08/2021 05/06/2022 05/16/2022 12:1 6 AM NURSING HOME MANAGER COVID - 19 06/24/2022 09/09/2022 09/19/2022 12:1 6 AM CDT documented as of this encounter Care Teams Glass Edger Relationship Specialty Start Date End Date Brice Mondragon MD [address] [place] [address] [address] [place] [address] PCP - General Family Medicine 03/12/20 11/05/22 Fortino Alicia MD [address] [facility] [address] [place] [address] PCP - General Internal Medicine 11/06/22 Jasson Layne MD Consulting Physician Neurology 04/02/16 05/07/24 documented as of this encounter
--- OUTSIDE RECORDS SUMMARY | 2024-11-28 09:20 | XMS_ITS | Referral Summary ---
Author Organization [facility] [address] Address [address] [place] [address] Care Team Providers Care Slot Floorman Name Role Phone Chelo Manzo NP Unavailable [phone] Jasson Layne MD Unavailable [phone] Rowan Brown OD Unavailable [phone] Fortino Alicia MD Primary Care Provider Encounters Date Type Department Care Team Description 11/23/2024 1:30 PM CDT Office Visit [facility] [address] [phone] Fortino Alicia MD Mentally disabled (Primary Dx); Alzheimer's dementia with mood disturbance, unspecified dementia severity, unspecified timing of dementia onset (HCC); Fall, sequela 10/26/2024 11:30 AM CDT Office Visit [facility] [address] [phone] Fortino Alicia MD Fall, sequela (Primary Dx) 10/19/2024 Orders Only [facility] Care [facility] [address] [phone] Sasha Powers MA 10/19/2024 Telephone [facility] Care [facility] [address] [phone] Melissa Bowen MA Chart Review ([facility] med [facility]) [facility]/13[facility] [phone] Melissa Bowen MA Unsuccessful Phone Call 1 ([facility] med adh) 09/19/2024 Telephone [facility] Accountable Care Organization [address] [place] [address] Katherin Riojas Chart Review ([facility] Med Adherence ) 09/18/2024 Orders Only [address] [phone] Fortino Alicia MD 09/18/2024 9:00 AM CDT Office Visit [address] [phone] Fortino Alicia MD Medicare annual wellness visit, subsequent (Primary Dx); Mentally disabled; Non-refractory epilepsy (HCC); Schizoaffective disorder, unspecified type (HCC); Fall, sequela 08/31/2024 Orders Only [address] [phone] Fortino Alicia MD 08/31/[address] [phone] Fortino Alicia MD from Last 3 Months Allergies Active Allergy Reactions Criticality Noted Date Comments Antihistamines - Alkylamine Bacitracin Other (See comments) Low 05/28/2020 Benzalkonium Other (See comments) Low 05/28/2020 Gramicidin D Other (See comments) Low 05/28/2020 Neomycin Acmjzxzj-Wowaiihpct-Scb ymyxin Other (See comments) Low 05/27/2020 Need [...] oral route 2 times every day 0 1 Active fluticasone (FLONASE) 50 mcg/actuation nasal [...] Jared Hou M.D. MF: NATE Report ID: [id number] Reading Location: [address] Coding Clinical Impression 1. Hip strain, left, [...] 09/03/2017 Assessment & Plan (06/14/2019 9:58 AM SORT LINE WORKER): She has been adequately replaced with a level of 67 Assessment & Plan (12/21/2018 10:50 AM CDT): Vitamin-D is up to 39.1 on latest labs from October we will continue to follow on current regimen Assessment & Plan (06/10/2018 9:08 AM SORT LINE WORKER): Vitamin-D is up to 67 no changes currently Assessment & Plan (09/03/2017 9:14 AM SORT LINE WORKER): We will supplement with 12 weeks of vitamin-D BMI 25.0-25.9,adult 06/01/2017 Overview (09/03/2017): BMI Follow-up includes: nutrition counseling, exercise counseling and education provided. Assessment & Plan (09/17/2023 10:42 AM CDT): BMI Follow-up includes: nutrition counseling, exercise counseling, and education provided. Assessment & Plan (06/01/2017 8:38 AM SORT LINE WORKER): BMI Follow-up includes: nutrition counseling, exercise counseling [...] record. Assessment & Plan (09/03/2022 9:02 AM SORT LINE WORKER): A Medicare Annual Wellness Visit (AWV) was done today as well. The patient filled out a depression screen, functional assessment screen, health risk assessment, and other physicians list. All the elements of this exam were completed as outlined by CMS. Please note that the documentation of this is split between paper documentation and this electronic record. Assessment & Plan (08/27/2021 8:45 AM SORT LINE WORKER): A Medicare Annual Wellness Visit (AWV) was done today as well. The patient filled out a depression screen, functional assessment screen, health risk assessment, and other physicians list. All the elements of this exam were completed as outlined by CMS. Please note that the documentation of this is split between paper documentation and this electronic record. Assessment & Plan (06/06/2020 9:03 AM SORT LINE WORKER): A Medicare Annual Wellness Visit (AWV) was done today as well. The patient filled out a depression screen, functional assessment screen, health risk assessment, and other physicians list. All the elements of this exam were completed as outlined by CMS. Please note that the documentation of this is split between paper documentation and this electronic record. Assessment & Plan (06/14/2019 9:52 AM SORT LINE WORKER): A Medicare Annual Wellness Visit (AWV) was done today as well. The patient filled out a depression screen, functional assessment screen, health risk assessment, and other physicians list. All the elements of this exam were completed as outlined by CMS. Please note that the documentation of this is split between paper documentation and this electronic record. Assessment & Plan (06/10/2018 9:08 AM SORT LINE WORKER): A Medicare Annual Wellness Visit (AWV) was [...] time Assessment & Plan (06/01/2017 9:07 AM SORT LINE WORKER): A Medicare Annual Wellness Visit (AWV) was [...] 06/01/2017 Assessment & Plan (09/03/2017 9:15 AM SORT LINE WORKER): She is here fo her park interpretive specialist currently no new issues r 6 month podiatry follow- up continues to follow with Assessment & Plan (06/01/2017 9:10 AM SORT LINE WORKER): She is having quite a few complaints about her feet she already sees a park interpretive specialist . he will sit in [place], she does have evidence of bunions, she has evidence of calluses significant issues on the sole of her feet I will defer to her park interpretive specialist Mentally disabled 2015 Overview (09/03/2022): MILD MENTAL RETARDATION Assessment & Plan (11/23/2024 1:37 PM CDT): No change currently continue same Assessment & Plan (09/03/2022 9:01 AM SORT LINE WORKER): No change currently continue same Assessment & Plan (12/21/2018 10:48 AM CDT): No change currently continue same Assessment & Plan (06/01/2017 9:09 AM SORT LINE WORKER): No change currently continue same Non-refractory epilepsy 2015 Overview (10/02/2016): EPILEP NOS W/O INTR EPIL Assessment & Plan (09/17/2023 10:46 AM CDT): No current reported seizure Assessment & Plan (09/03/2022 9:01 AM SORT LINE WORKER): No current reported seizure Assessment & Plan (06/14/2019 9:57 AM SORT LINE WORKER): No current reported seizure Assessment & Plan (12/21/2018 10:48 AM CDT): No change currently continue same Psychosis 2015 Overview (10/02/2016): PSYCHOSIS NOS Assessment & Plan (08/27/2021 8:49 AM SORT LINE WORKER): No reported episodes Assessment & Plan (04/03/2020 10:04 AM CDT): No reported episodes Assessment & Plan (06/14/2019 9:58 AM SORT LINE WORKER): No reported episodes Assessment & Plan (06/01/2017 9:10 AM SORT LINE WORKER): No changes currently Hypothyroid 2015 Overview (09/03/2022): HYPOTHYROIDISM NOS Assessment & Plan (09/17/2023 10:46 AM CDT): Reviewed her current labs including thyroid, continue current dose Assessment & Plan (06/14/2019 9:58 AM SORT LINE WORKER): Reviewed her current labs including thyroid, continue current dose Assessment & Plan (12/21/2018 10:48 AM CDT): Active thyroid hormone is controlled Assessment & Plan (06/10/2018 9:08 AM SORT LINE WORKER): Active thyroid hormone is controlled Assessment & Plan (06/01/2017 9:09 AM SORT LINE WORKER): I reviewed her thyroid her active thyroid hormone is normal continue the same Atopic rhinitis 2015 Overview (10/02/2016): ALLERGIC RHINITIS NOS Assessment & Plan (06/01/2017 9:09 AM SORT LINE WORKER): She continues to have some dry skin issues Dementia 11/11/2013 Overview (10/02/2016): Dementia, unspecified, without behavioral disturba Assessment & Plan (06/14/2019 9:58 AM SORT LINE WORKER): No change currently follow as clinical course dictates Assessment & Plan (12/21/2018 10:49 AM CDT): No change currently in her dementia continue same Assessment & Plan (06/01/2017 9:09 AM SORT LINE WORKER): No change currently in her dementia continue same Resolved Problems Problem Noted Date Diagnosed Date Resolved Date BMI 25.0-25.9,adult 06/10/2018 06/06/20 20 Overview (06/10/2018): BMI Follow-up includes: nutrition counseling, exercise counseling and education provided. BMI 21.0-21.9, adult 12/02/2017 020 Assessment & Plan (12/02/2017 1:05 PM CDT): BMI Follow-up includes: nutrition counseling, exercise counseling and education provided. Immunizations Immunization Administration Dates Next Due COVID-19 mRNA (NightOwl) 0.3 m L (30 mcg) vaccine (12 years and up) 05/09/2024 Influenza, Quadrivalent, Spl it, Intramuscular 03/11/2016 Influenza, Quadrivalent, Spl it, Preservative Free, Intramuscular 04/09/2015,04/16/2014 Influenza, Trivalent, IM (MDV) 05/15/2013,2010 Influenza, Trivalent, Preser vative Free, Intramuscular 04/10/2017 Influenza, Unspecified 05/02/2024,2022,05/06/2022,05/07,05/07/2020 Pneumococcal Polysaccharide PPV23 06/14/2006 Social History Tobacco Use Types Packs/Day Years [...] on file Legal Sex Female 1:11 AM SORT LINE WORKER Gender Identity Not on file Sexual Orientation Not on file Last Filed Vital Signs Vital Sign Reading Time Taken Comments Blood Pressure 126/84 11/23/2024 1:39 PM CDT Pulse 72 11/23/2024 1:39 PM CDT Temperature 36.2 C (97.1 F) 09/03/2022 9:00 AM SORT LINE WORKER Respiratory Rate 14 04/03/2020 10:03 AM CDT Oxygen Saturation 98% 11/23/2024 1:39 PM CDT Inhaled Oxygen Concentration - - Weight 63 kg (139 lb) 11/23/2024 1:39 PM CDT Height 152.4 cm (5') 11/23/2024 1:39 PM CDT Body Mass Index 27.15 11/23/2024 1:39 PM CDT Plan of Treatment Not on file Procedures Procedure Name Priority Date/Time Associated Diagnosis Comments SCREENING MAMMOGRAM 2D BILATERAL Schedule Routine, Read Routine (OP Routine) 01/05/2024 1:29 PM CDT COLONOSCOPY 10/20/2017 8:05 AM CDT from Last 3 Months or Most Recently Relevant to Health Maintenance Results * Screening Mammogram 2D Bilateral (01/05/2024 1:29 PM CDT) Anatomical Region Laterality Modality Breast Bilateral Mammography Historical Provider MD [facility] MAMMO PROCEDURES Kellie l Result * COLONOSCOPY (10/20/2017 8:05 AM CDT) Anatomical Region Laterality Modality Other Narrative Procedure Note Lina Garzon MD - 10/20/2017 8:05 AM CDT [facility] Patient Name: Jovana Diaz Procedure Date: 10/20/2017 8:05 AM Date of : 1950 Admit Type: Outpatient Age: 67 Gender: Female Attending MD: Lina Garzon MD Room: [facility] ENDOSCOPY ROOM 2 Note Status: Finalized Patient Profile: 67 WF, no family h/o colon cancer, patiebnt lives in [facility] home. Procedure: Colonoscopy Indications: Screening for colorectal malignant [...] passed under direct vision.The Pediatric Colonoscope PCF-H190L [id number] was introduced through the anus and advanced [...] colon K64.8, Other hemorrhoids CPT copyright 2014 [employer]. All rights reserved. The codes documented in this report are preliminary and upon stock analyst reviewmay be revised to meet current compliance requirements. Recognized by the [employer] for promoting quality in endoscopy Lina Garzon MD ENDOSCOPY PROCEDURES Final Result from Last 3 Months or Most Recently Relevant to Health Maintenance Insurance [facility] MEDICARE [facility] Address: [address] [address] [place] [address] [facility] MEDICARE [facility] Address: [address] [address] [place] [address] Advance Directives For more information, please contact: [phone] * Full Code (Latest Code Status on File) Date Activated Date Inactivated Comments 10/20/2017 7:58 AM 10/20/2017 11:39 AM Care Teams Slot Floorman Relationship Specialty Start Date End Date Fortino Alicia MD [address] [place] [address] [address] PCP - General Internal Medicine 08/27/21 Chelo Manzo NP Nurse Practitioner Obstetrics and Gynecology 06/10/18 Jasson Layne MD [address] [place] [address] [address] Referring Physician Neurology 06/10/18 Rowan Brown OD [address] [place] [address] [address] Optometry 06/10/18
--- OUTSIDE RECORDS SUMMARY | 2024-11-28 09:20 | XMS_ITS | Encounter Summary ---
Author Organization [facility] Address [address] [place] [address] Phone Care Team Providers Care Packager Name Role Phone Jasson Layne MD Unavailable [phone] Brice Mondragon MD Primary Care Provider [phone] Fortino Alicia MD Primary Care Provider [phone] Encounter Details Date Type Department Care Team (Late st Contact Info) Description 08/26/2022 Lab Requisition [facility] 1 [place] [address] Brice Mondragon MD [address] [place] [address] [facility] [address] [place] [address] Encounter for screening for COVID-19 [...] Associated Diagnosis Comments SARS-COV-2 BY MOLECULAR Routine 08/26/2022 8:32 AM PAPER AND PRINTS RESTORER Encounter for screening for COVID-19 documented in this encounter Results * SARS-COV-2 BY MOLECULAR (08/26/2022 8:32 AM PAPER AND PRINTS RESTORER) SARSCOV2 NOT DETECTED (Referen ce Range for this test is Not Detected ) [facility] THERMOFISHER FAST DX 08/27/2022 8:01 PM PAPER AND PRINTS RESTORER [facility] Comment:This test was perfor med by a RT-PCR method. Other Non-Phlebotomy Collection / Unknown 08/26/2022 8:32 AM PAPER AND PRINTS RESTORER 08/26/2022 10:19 AM PAPER AND PRINTS RESTORER Narrative [facility] - 08/27/2022 8:01 PM PAPER AND PRINTS RESTORER Authorized Fact Sheets about this test for providers and patients are available at: https://www.fda.gov/medical-devices/cfhcgpkgz-wezrikyhoe-ryrrjho-devices/emergen cy-us e-authorizations us Brice Mondragon MD MICROBIOLOGY - GENERAL ORDERAB LES Final Result [facility] [address] [phone], documented in this encounter Visit Diagnoses Diagnosis Encounter for screening for COVID-19 documented in this encounter Additional Health Concerns Infection Onset Date Last Indicated Resolved Time COVID - 19 06/24/2022 09/09/2022 09/19/2022 12:1 6 AM CDT documented as of this encounter Care Teams Packager Relationship Specialty Start Date End Date Brice Mondragon MD [address] [place] [address] [address] [place] [address] PCP - General Family Medicine 03/12/20 11/05/22 Fortino Alicia MD [address] [place] [address] PCP - General Internal Medicine 11/06/22 Jasson Layne MD Consulting Physician Neurology 04/02/16 05/07/24 documented as of this encounter
--- OUTSIDE RECORDS SUMMARY | 2024-11-28 09:20 | XMS_ITS | Encounter Summary ---
Author Organization [facility] Address [address] [place] [address] Phone Care Team Providers Care Copper Miner Blasting Name Role Phone Jasson Layne MD Unavailable [phone] Brice Mondragon MD Primary Care Provider [phone] Fortino Alicia MD Primary Care Provider [phone] Encounter Details Date Type Department Care Team (Late st Contact Info) Description 08/13/2021 Lab Requisition [facility] Services 1 [place] [address] Brice Mondragon MD [address] [place] [address] [facility] [address] [place] [address] Encounter for screening for COVID-19 [...] Associated Diagnosis Comments SARS-COV-2 BY MOLECULAR Routine 08/13/2021 8:12 AM EXECUTIVE OFFICER SPECIAL WARFARE TEAM Encounter for screening for COVID-19 documented in this encounter Results * SARS-COV-2 BY MOLECULAR (08/13/2021 8:12 AM EXECUTIVE OFFICER [employer] WARFARE TEAM) SARSCOV2 NOT DETECTED (Referen ce Range for this test is Not Detected ) [facility] THERMOFISHER FAST DX 08/14/2021 7:09 AM EXECUTIVE OFFICER SPECIAL WARFARE TEAM [facility] Comment:This test was perfor med by a RT-PCR method. Other Non-Phlebotomy Collection / Unknown 08/13/2021 8:12 AM EXECUTIVE OFFICER [employer] WARFARE TEAM 08/13/2021 10:45 AM EXECUTIVE OFFICER SPECIAL WARFARE TEAM Narrative [facility] - 08/14/2021 7:09 AM EXECUTIVE OFFICER SPECIAL WARFARE TEAM Authorized Fact Sheets about this test for providers and patients are available at: https://www.fda.gov/medical-devices/rcprijxmb-kcshdcsjaz-rcfqwkx-devices/emergen -us e-authorizations us Brice Mondragon MD MICROBIOLOGY - GENERAL ORDERAB LES Final Result [facility] [address] [place] [address], documented in this encounter Visit Diagnoses Diagnosis Encounter for screening for COVID-19 documented in this encounter Additional Health Concerns Infection Onset Date Last Indicated Resolved Time COVID - 19 07/23/2021 08/13/2021 09/02/2021 12:1 6 AM EXECUTIVE OFFICER [employer] WARFARE TEAM COVID - 19 10/08/2021 05/06/2022 05/16/2022 12:1 6 AM EXECUTIVE OFFICER SPECIAL WARFARE TEAM COVID - 19 06/24/2022 09/09/2022 09/19/2022 12:1 6 AM CDT documented as of this encounter Care Teams Copper Miner Blasting Relationship Specialty Start Date End Date Brice Mondragon MD [facility] [address] [place] [address] PCP - General Family Medicine 03/12/20 11/05/22 Fortino Alicia MD [address] [facility] [address] [place] [address] PCP - General Internal Medicine 11/06/22 aJsson Layne MD Consulting Physician Neurology 04/02/16 05/07/24 documented as of this encounter
--- OUTSIDE RECORDS SUMMARY | 2024-11-28 09:20 | XMS_ITS | Encounter Summary ---
Author Organization [facility] Address [address] [place] [address] Phone Care Team Providers Care Supervisor Fertilizer Name Role Phone Jasson Layne MD Unavailable Brice Mondragon MD Primary Care Provider [phone] Fortino Alicia MD Primary Care Provider [phone] Encounter Details Date Type Department Care Team (Late st Contact Info) Description 07/08/2022 Lab Requisition [facility] Services 1 [place] [address] Brice Mondragon MD [address] [place] [address] [facility] [address] [place] [address] Encounter for screening for COVID-19 [...] Associated Diagnosis Comments SARS-COV-2 BY MOLECULAR Routine 07/08/2022 12:40 PM ROLL PANNER Encounter for screening for COVID-19 documented in this encounter Results * SARS-COV-2 BY MOLECULAR (07/08/2022 12:40 PM ROLL PANNER) SARSCOV2 NOT DETECTED (Referen ce Range for this test is Not Detected ) [facility] THERMOFISHER FAST DX 07/08/2022 10:53 PM ROLL PANNER [facility] Comment:This test was perfor med by a RT-PCR method. Other Non-Phlebotomy Collection / Unknown 07/08/2022 12:40 PM ROLL PANNER 07/08/2022 2:09 PM ROLL PANNER Narrative [facility] - 07/08/2022 10:53 PM ROLL PANNER Authorized Fact Sheets about this test for providers and patients are available at: https://www.fda.gov/medical-devices/kbthqblpy-fqcfbmwqaq-rxjxqni-devices/emergen cy-us e-authorizations us Brice Mondragon MD MICROBIOLOGY - GENERAL ORDERAB LES Final Result [facility] [address] [phone], documented in this encounter Visit Diagnoses Diagnosis Encounter for screening for COVID-19 documented in this encounter Additional Health Concerns Infection Onset Date Last Indicated Resolved Time COVID - 19 06/24/2022 09/09/2022 09/19/2022 12:1 6 AM CDT documented as of this encounter Care Teams Supervisor Fertilizer Relationship Specialty Start Date End Date Brice Mondragon MD [address] [place] [address] [address] [place] [address] PCP - General Family Medicine 03/12/20 11/05/22 Fortino Alicia MD [address] [place] [address] PCP - General Internal Medicine 11/06/22 Jasson Layne MD Consulting Physician Neurology 04/02/16 05/07/24 documented as of this encounter
--- OUTSIDE RECORDS SUMMARY | 2024-11-28 09:20 | XMS_ITS | Encounter Summary ---
Author Organization [facility] Address [address] [place] [address] Phone Care Team Providers Care Swatcher Name Role Phone Jasson Layne MD Unavailable [phone] Brice Mondragon MD Primary Care Provider [phone] Fortino Alicia MD Primary Care Provider [phone] Encounter Details Date Type Department Care Team (Late st Contact Info) Description 06/04/[address] [facility] Laboratory Services [address] [place] [address] Brice Mondragon MD [address] [place] [address] [facility] [address] [place] [address] Encounter for screening for COVID-19 [...] Associated Diagnosis Comments SARS-COV-2 BY MOLECULAR Routine 06/04/2021 8:48 AM MILKING MACHINE MECHANIC Encounter for screening for COVID-19 documented in this encounter Results * SARS-COV-2 BY MOLECULAR (06/04/2021 8:48 AM MILKING MACHINE MECHANIC) SARSCOV2 NOT DETECTED (Referen ce Range for this test is Not Detected ) [facility] THERMOFISHER FAST DX 06/05/2021 5:59 PM MILKING MACHINE MECHANIC [facility] Comment:This test was perfor med by a RT-PCR method. Other No Phlebotomy Charged / Unknown 06/04/2021 8:48 AM MILKING MACHINE MECHANIC 06/04/2021 11:31 AM MILKING MACHINE MECHANIC Narrative [facility] - 06/05/2021 5:59 PM MILKING MACHINE MECHANIC Authorized Fact Sheets about this test for providers and patients are available at: https://www.fda.gov/medical-devices/ozlebomnj-gfvzxlgoqm-hcuvuye-devices/emergen -us e-authorizations us Brice Mondragon MD MICROBIOLOGY - GENERAL ORDERAB LES Final Result [facility] [address] [place] [address], documented in this encounter Visit Diagnoses Diagnosis Encounter for screening for COVID-19 documented in this encounter Additional Health Concerns Infection Onset Date Last Indicated Resolved Time COVID - 19 03/19/2021 07/02/2021 07/04/2021 7:20 PM MILKING MACHINE MECHANIC COVID - 19 Confirmed 07/02/2021 07/02/2021 022 12:17 AM MILKING MACHINE MECHANIC COVID - 19 07/23/2021 08/13/2021 09/02/2021 12:1 6 AM MILKING MACHINE MECHANIC COVID - 19 10/08/2021 05/06/2022 05/16/2022 12:1 6 AM MILKING MACHINE MECHANIC COVID - 19 06/24/2022 09/09/2022 09/19/2022 12:1 6 AM CDT documented as of this encounter Care Teams Swatcher Relationship Specialty Start Date End Date Brice Mondragon MD [address] [facility] [address] [place] [address] PCP - General Family Medicine 03/12/20 11/05/22 Fortino Alicia MD [address] [place] [address] PCP - General Internal Medicine 11/06/22 Jasson Layne MD Consulting Physician Neurology 04/02/16 05/07/24 documented as of this encounter
--- OUTSIDE RECORDS SUMMARY | 2024-11-28 09:20 | XMS_ITS | Encounter Summary ---
Author Organization [facility] Address [address] [place] [address] Phone Care Team Providers Care Co Founder And Chief Strategy Officer Name Role Phone Jasson Layne MD Unavailable [phone] Brice Mondragon MD Primary Care Provider [phone] Fortino Alicia MD Primary Care Provider [phone] Encounter Details Date Type Department Care Team (Late st Contact Info) Description 10/29/2021 Lab Requisition [facility] Laboratory Services 1 [place] [address] Brice Mondragon MD [address] [place] [address] [facility] [address] [place] [address] Encounter for screening for COVID-19 [...] Associated Diagnosis Comments SARS-COV-2 BY MOLECULAR Routine 10/29/2021 8:56 AM CDT Encounter for screening for COVID-19 documented in this encounter Results * SARS-COV-2 BY MOLECULAR (10/29/2021 8:56 AM CDT) SARSCOV2 NOT DETECTED (Referen ce Range for this test is Not Detected ) [facility] THERMOFISHER FAST DX 10/29/2021 11:33 PM CDT [facility] Comment:This test was perfor med by a RT-PCR method. Other Non-Phlebotomy Collection / Unknown 10/29/2021 8:56 AM CDT 10/29/2021 11:32 AM CDT Narrative [facility] - 10/29/2021 11:33 PM CDT Authorized Fact Sheets about this test for providers and patients are available at: https://www.fda.gov/medical-devices/drcqdztwm-thydvobrme-xvxnoux-devices/emergen -us e-authorizations us Brice Mondragon MD MICROBIOLOGY - GENERAL ORDERAB LES Final Result [facility] [address] [place] [address], documented in this encounter Visit Diagnoses Diagnosis Encounter for screening for COVID-19 documented in this encounter Additional Health Concerns Infection Onset Date Last Indicated Resolved Time COVID - 19 10/08/2021 05/06/2022 05/16/2022 12:1 6 AM REIMBURSEMENT LIAISON COVID - 19 06/24/2022 09/09/2022 09/19/2022 12:1 6 AM CDT documented as of this encounter Care Teams Co Founder And Chief Strategy Officer Relationship Specialty Start Date End Date Brice Mondragon MD [address] [place] [address] [address] [place] [address] PCP - General Family Medicine 03/12/20 11/05/22 Fortino Alicia MD [address] [place] [address] PCP - General Internal Medicine 11/06/22 Jasson Layne MD Consulting Physician Neurology 04/02/16 05/07/24 documented as of this encounter
--- OUTSIDE RECORDS SUMMARY | 2024-11-28 09:20 | XMS_ITS | Encounter Summary ---
Author Organization [facility] Address [address] [place] [address] Phone Care Team Providers Care City Route Driver Name Role Phone Jasson Layne MD Unavailable [phone] Brice Mondragon MD Primary Care Provider [phone] Fortino Alicia MD Primary Care Provider [phone] Encounter Details Date Type Department Care Team (Late st Contact Info) Description 06/25/2021 Lab Requisition [facility] Laboratory Services 1 [place] [address] Brice Mondragon MD [address] [place] [address] [facility] [address] [place] [address] Encounter for screening for COVID-19 [...] Associated Diagnosis Comments SARS-COV-2 BY MOLECULAR Routine 06/25/2021 8:47 AM EMPLOYMENT INTERVIEWER Encounter for screening for COVID-19 documented in this encounter Results * SARS-COV-2 BY MOLECULAR (06/25/2021 8:47 AM EMPLOYMENT INTERVIEWER) SARSCOV2 NOT DETECTED (Referen ce Range for this test is Not Detected ) [facility] THERMOFISHER FAST DX 06/28/2021 11:18 AM EMPLOYMENT INTERVIEWER [facility] Comment:This test was perfor med by a RT-PCR method. Other No Phlebotomy Charged / Unknown 06/25/2021 8:47 AM EMPLOYMENT INTERVIEWER 06/25/2021 12:37 PM EMPLOYMENT INTERVIEWER Narrative [facility] - 06/28/2021 11:18 AM EMPLOYMENT INTERVIEWER Authorized Fact Sheets about this test for providers and patients are available at: https://www.fda.gov/medical-devices/coomgidng-ctvociocms-qtwbish-devices/emergen -us e-authorizations us Brice Mondragon MD MICROBIOLOGY - GENERAL ORDERAB LES Final Result [facility] [address] [place] [address], documented in this encounter Visit Diagnoses Diagnosis Encounter for screening for COVID-19 documented in this encounter Additional Health Concerns Infection Onset Date Last Indicated Resolved Time COVID - 19 03/19/2021 07/02/2021 07/04/2021 7:20 PM EMPLOYMENT INTERVIEWER COVID - 19 Confirmed 07/02/2021 07/02/2021 022 12:17 AM EMPLOYMENT INTERVIEWER COVID - 19 07/23/2021 08/13/2021 09/02/2021 12:1 6 AM EMPLOYMENT INTERVIEWER COVID - 19 10/08/2021 05/06/2022 05/16/2022 12:1 6 AM EMPLOYMENT INTERVIEWER COVID - 19 06/24/2022 09/09/2022 09/19/2022 12:1 6 AM CDT documented as of this encounter Care Teams City Route Driver Relationship Specialty Start Date End Date Brice Mondragon MD [address] [facility] [address] [place] [address] PCP - General Family Medicine 03/12/20 11/05/22 Fortino Alicia MD [address] [place] [address] PCP - General Internal Medicine 11/06/22 Jasson Layne MD Consulting Physician Neurology 04/02/16 05/07/24 documented as of this encounter
--- OUTSIDE RECORDS SUMMARY | 2024-11-28 09:20 | XMS_ITS | Encounter Summary ---
Author Organization [facility] Address [address] [place] [address] Phone Care Team Providers Care Rn Acute Dialysis Name Role Phone Jasson Layne MD Unavailable [phone] Brice Mondragon MD Primary Care Provider [phone] Fortino Alicia MD Primary Care Provider [phone] Encounter Details Date Type Department Care Team (Late st Contact Info) Description 03/18/2022 Lab Requisition [facility] Laboratory Services 1 [place] [address] Brice Mondragon MD [address] [place] [address] [facility] [address] [place] [address] Encounter for screening for COVID-19 [...] Associated Diagnosis Comments SARS-COV-2 BY MOLECULAR Routine 03/18/2022 8:21 AM CDT Encounter for screening for COVID-19 documented in this encounter Results * SARS-COV-2 BY MOLECULAR (03/18/2022 8:21 AM CDT) SARSCOV2 NOT DETECTED (Referen ce Range for this test is Not Detected ) [facility] THERMOFISHER FAST DX 03/19/2022 10:23 AM CDT [facility] Comment:This test was perfor med by a RT-PCR method. Other Non-Phlebotomy Collection / Unknown 03/18/2022 8:21 AM CDT 03/18/2022 11:10 AM CDT Narrative [facility] - 03/19/2022 10:23 AM CDT Authorized Fact Sheets about this test for providers and patients are available at: https://www.fda.gov/medical-devices/tkjmajcbq-jlftshksnx-vmufnjv-devices/emergen -us e-authorizations us Brice Mondragon MD MICROBIOLOGY - GENERAL ORDERAB LES Final Result [facility] [address] [place] [address], documented in this encounter Visit Diagnoses Diagnosis Encounter for screening for COVID-19 documented in this encounter Additional Health Concerns Infection Onset Date Last Indicated Resolved Time COVID - 19 10/08/2021 05/06/2022 05/16/2022 12:1 6 AM SENIOR ORACLE DATABASE ADMINISTRATOR COVID - 19 06/24/2022 09/09/2022 09/19/2022 12:1 6 AM CDT documented as of this encounter Care Teams Rn Acute Dialysis Relationship Specialty Start Date End Date Brice Mondragon MD [address] [place] [address] [address] [place] [address] PCP - General Family Medicine 03/12/20 11/05/22 Fortino Alicia MD [address] [facility] [address] [place] [address] PCP - General Internal Medicine 11/06/22 Jasson Layne MD Consulting Physician Neurology 04/02/16 05/07/24 documented as of this encounter
--- OUTSIDE RECORDS SUMMARY | 2024-11-28 09:20 | XMS_ITS | Encounter Summary ---
Author Organization [facility] Address [address] [place] [address] Phone Care Team Providers Care Security Business Analyst Name Role Phone Jasson Layne MD Unavailable [phone] Brice Mondragon MD Primary Care Provider [phone] Fortino Alicia MD Primary Care Provider [phone] Encounter Details Date Type Department Care Team (Late st Contact Info) Description 04/22/2022 Lab Requisition [facility] Laboratory Services 1 [place] [address] Brice Mondragon MD [address] [place] [address] [facility] [address] [place] [address] Encounter for screening for COVID-19 [...] Associated Diagnosis Comments SARS-COV-2 BY MOLECULAR Routine 04/22/2022 9:33 AM CDT Encounter for screening for COVID-19 documented in this encounter Results * SARS-COV-2 BY MOLECULAR (04/22/2022 9:33 AM CDT) SARSCOV2 NOT DETECTED (Referen ce Range for this test is Not Detected ) [facility] THERMOFISHER FAST DX 04/23/2022 12:21 AM CDT [facility] Comment:This test was perfor med by a RT-PCR method. Other Non-Phlebotomy Collection / Unknown 04/22/2022 9:33 AM CDT 04/22/2022 11:33 AM CDT Narrative [facility] - 04/23/2022 12:21 AM CDT Authorized Fact Sheets about this test for providers and patients are available at: https://www.fda.gov/medical-devices/jddlefuej-qdodwsdngc-tyqbccf-devices/emergen -us e-authorizations us Brice Mondragon MD MICROBIOLOGY - GENERAL ORDERAB LES Final Result [facility] [address] [place] [address], documented in this encounter Visit Diagnoses Diagnosis Encounter for screening for COVID-19 documented in this encounter Additional Health Concerns Infection Onset Date Last Indicated Resolved Time COVID - 19 10/08/2021 05/06/2022 05/16/2022 12:1 6 AM HARNESS PREPARER COVID - 19 06/24/2022 09/09/2022 09/19/2022 12:1 6 AM CDT documented as of this encounter Care Teams Security Business Analyst Relationship Specialty Start Date End Date Brice Mondragon MD [address] [place] [address] [address] [place] [address] PCP - General Family Medicine 03/12/20 11/05/22 Fortino Alicia MD [address] [facility] [address] [place] [address] PCP - General Internal Medicine 11/06/22 Jasson Layne MD Consulting Physician Neurology 04/02/16 05/07/24 documented as of this encounter
--- OUTSIDE RECORDS SUMMARY | 2024-11-28 09:20 | XMS_ITS | Encounter Summary ---
Author Organization [facility] Address [address] [place] [address] Phone Care Team Providers Care Auto Body Repair Teacher Name Role Phone Jasson Layne MD Unavailable [phone] Brice Mnodragon MD Primary Care Provider [phone] Fortino Alicia MD Primary Care Provider Encounter Details Date Type Department Care Team (Late st Contact Info) Description 11/19/2021 Lab Requisition [facility] Laboratory Services 1 [place] [address] Brice Mondragon MD [address] [place] [address] [facility] [address] [place] [address] Encounter for screening for COVID-19 [...] Associated Diagnosis Comments SARS-COV-2 BY MOLECULAR Routine 11/19/2021 8:53 AM CDT Encounter for screening for COVID-19 documented in this encounter Results * SARS-COV-2 BY MOLECULAR (11/19/2021 8:53 AM CDT) SARSCOV2 NOT DETECTED (Referen ce Range for this test is Not Detected ) [facility] THERMOFISHER FAST DX 11/20/2021 2:[address] [facility] Comment:This test was perfor med by a RT-PCR method. Other Venipuncture / Unknown 11/19/2021 8:53 AM CDT 11/19/2021 1:[address] [facility] - 11/20/2021 2:01 PM CDT Authorized Fact Sheets about this test for providers and patients are available at: https://www.fda.gov/medical-devices/ebpawniuh-qkhcoylaex-bfxffov-devices/emergen -us e-authorizations us Brice Mondragon MD MICROBIOLOGY - GENERAL ORDERAB LES Final Result [facility] [address] [place] [address], documented in this encounter Visit Diagnoses Diagnosis Encounter for screening for COVID-19 documented in this encounter Additional Health Concerns Infection Onset Date Last Indicated Resolved Time COVID - 19 10/08/2021 05/06/2022 05/16/2022 12:1 6 AM SCOOTER MECHANIC COVID - 19 06/24/2022 09/09/2022 09/19/2022 12:1 6 AM CDT documented as of this encounter Care Teams Auto Body Repair Teacher Relationship Specialty Start Date End Date Brice Mondragon MD [address] [place] [address] [address] [place] [address] PCP - General Family Medicine 03/12/20 11/05/22 Fortino Alicia MD [address] [place] [address] PCP - General Internal Medicine 11/06/22 Jasson Layne MD Consulting Physician Neurology 04/02/16 05/07/24 documented as of this encounter
--- OUTSIDE RECORDS SUMMARY | 2024-11-28 09:20 | XMS_ITS | Encounter Summary ---
Author Organization [facility] Address [address] [place] [address] Phone Care Team Providers Care Reinforcing Steel Worker Name Role Phone Jasson Layne MD Unavailable [phone] Brice Mondragon MD Primary Care Provider [phone] Fortino Alicia MD Primary Care Provider [phone] Encounter Details Date Type Department Care Team (Late st Contact Info) Description 07/29/2022 Lab Requisition [facility] Laboratory Services 1 [place] [address] Brice Mondragon MD [address] [place] [address] [facility] [address] [place] [address] Encounter for screening for COVID-19 [...] Associated Diagnosis Comments SARS-COV-2 BY MOLECULAR Routine 07/29/2022 8:23 AM DIRECTOR OF GLOBAL SALES Encounter for screening for COVID-19 documented in this encounter Results * SARS-COV-2 BY MOLECULAR (07/29/2022 8:23 AM DIRECTOR OF GLOBAL SALES) SARSCOV2 NOT DETECTED (Referen ce Range for this test is Not Detected ) [facility] THERMOFISHER FAST DX 07/29/2022 9:47 PM DIRECTOR OF GLOBAL SALES [facility] Comment:This test was perfor med by a RT-PCR method. Other Non-Phlebotomy Collection / Unknown 07/29/2022 8:23 AM DIRECTOR OF GLOBAL SALES 07/29/2022 10:01 AM DIRECTOR OF GLOBAL SALES Narrative [facility] - 07/29/2022 9:47 PM DIRECTOR OF GLOBAL SALES Authorized Fact Sheets about this test for providers and patients are available at: https://www.fda.gov/medical-devices/htyerdbnv-gpensbfoef-kiopknz-devices/emergen cy-us e-authorizations us Brice Mondragon MD MICROBIOLOGY - GENERAL ORDERAB LES Final Result [facility] [address] [place] [id number], documented in this encounter Visit Diagnoses Diagnosis Encounter for screening for COVID-19 documented in this encounter Additional Health Concerns Infection Onset Date Last Indicated Resolved Time COVID - 19 06/24/2022 09/09/2022 09/19/2022 12:1 6 AM CDT documented as of this encounter Care Teams Reinforcing Steel Worker Relationship Specialty Start Date End Date Brice Mondragon MD [address] [place] [address] [address] [place] [address] PCP - General Family Medicine 03/12/20 11/05/22 Fortino Alicia MD [address] [place] [address] PCP - General Internal Medicine 11/06/22 Jasson Layne MD Consulting Physician Neurology 04/02/16 05/07/24 documented as of this encounter
--- OUTSIDE RECORDS SUMMARY | 2024-11-28 09:20 | XMS_ITS | Encounter Summary ---
Author Organization [facility] Address [address] [place] [address] Phone Care Team Providers Care Assistant Professor Of Religion Name Role Phone Jasson Layne MD Unavailable [phone] Brice Mondragon MD Primary Care Provider [phone] Fortino Alicia MD Primary Care Provider [phone] Encounter Details Date Type Department Care Team (Late st Contact Info) Description 12/31/2021 Lab Requisition [facility] Laboratory Services 1 [place] [address] Brice Mondragon MD [address] [place] [address] [facility] [address] [place] [address] Encounter for screening for COVID-19 [...] Associated Diagnosis Comments SARS-COV-2 BY MOLECULAR Routine 12/31/2021 8:34 AM CDT Encounter for screening for COVID-19 documented in this encounter Results * SARS-COV-2 BY MOLECULAR (12/31/2021 8:34 AM CDT) SARSCOV2 NOT DETECTED (Referen ce Range for this test is Not Detected ) [facility] THERMOFISHER FAST DX 01/01/2022 12:[address] [facility] Comment:This test was perfor med by a RT-PCR method. Other Non-Phlebotomy Collection / Unknown 12/31/2021 8:34 AM CDT 12/31/2021 10:[address] [facility] - 01/01/2022 12:14 AM CDT Authorized Fact Sheets about this test for providers and patients are available at: https://www.fda.gov/medical-devices/fosqtotqc-emnyhmkbdv-kppbhai-devices/emergen -us e-authorizations us Brice Mondragon MD MICROBIOLOGY - GENERAL ORDERAB LES Final Result [facility] [address] [place] [address], documented in this encounter Visit Diagnoses Diagnosis Encounter for screening for COVID-19 documented in this encounter Additional Health Concerns Infection Onset Date Last Indicated Resolved Time COVID - 19 10/08/2021 05/06/2022 05/16/2022 12:1 6 AM SHIP'S OFFICER COVID - 19 06/24/2022 09/09/2022 09/19/2022 12:1 6 AM CDT documented as of this encounter Care Teams Assistant Professor Of Religion Relationship Specialty Start Date End Date Brice Mondragon MD [address] [place] [address] [address] [place] [address] PCP - General Family Medicine 03/12/20 11/05/22 Fortino Alicia MD [address] [facility] [address] [place] [address] PCP - General Internal Medicine 11/06/22 Jasson Layne MD Consulting Physician Neurology 04/02/16 05/07/24 documented as of this encounter
--- OUTSIDE RECORDS SUMMARY | 2024-11-28 09:20 | XMS_ITS | Encounter Summary ---
Author Organization [facility] Address [address] [place] [address] Phone Care Team Providers Care Insurance Auditor Name Role Phone Jasson Layne MD Unavailable [phone] Brice Mondragon MD Primary Care Provider [phone] Fortino Alicia MD Primary Care Provider [phone] Encounter Details Date Type Department Care Team (Late st Contact Info) Description 11/26/2021 Lab Requisition [facility] Laboratory Services [address] [place] [address] Brice Mondragon MD [address] [place] [address] [facility] [address] [place] [address] Encounter for screening for COVID-19 [...] Associated Diagnosis Comments SARS-COV-2 BY MOLECULAR Routine 11/26/2021 9:08 AM CDT Encounter for screening for COVID-19 documented in this encounter Results * SARS-COV-2 BY MOLECULAR (11/26/2021 9:08 AM CDT) SARSCOV2 NOT DETECTED (Referen ce Range for this test is Not Detected ) [facility] THERMOFISHER FAST DX 11/27/2021 1:55 PM CDT [facility] Comment:This test was perfor med by a RT-PCR method. Other Non-Phlebotomy Collection / Unknown 11/26/2021 9:08 AM CDT 11/26/2021 12:07 PM CDT Narrative [facility] - 11/27/2021 1:55 PM CDT Authorized Fact Sheets about this test for providers and patients are available at: https://www.fda.gov/medical-devices/waituqioj-rcpomgajfi-pgparwp-devices/emergen -us e-authorizations us Brice Mondragon MD MICROBIOLOGY - GENERAL ORDERAB LES Final Result [facility] [address] [place] [id number], documented in this encounter Visit Diagnoses Diagnosis Encounter for screening for COVID-19 documented in this encounter Additional Health Concerns Infection Onset Date Last Indicated Resolved Time COVID - 19 10/08/2021 05/06/2022 05/16/2022 12:1 6 AM REFRIGERATION MECHANIC COVID - 19 06/24/2022 09/09/2022 09/19/2022 12:1 6 AM CDT documented as of this encounter Care Teams Insurance Auditor Relationship Specialty Start Date End Date Brice Mondragon MD [address] [place] [address] [address] [place] [address] PCP - General Family Medicine 03/12/20 11/05/22 Fortino Alicia MD [address] [facility] [address] [place] [address] PCP - General Internal Medicine 11/06/22 Jasson Layne MD Consulting Physician Neurology 04/02/16 05/07/24 documented as of this encounter
--- OUTSIDE RECORDS SUMMARY | 2024-11-28 09:20 | XMS_ITS | Encounter Summary ---
Author Organization [facility] Address [address] [place] [address] Phone Care Team Providers Care Stenographic Court Reporter Name Role Phone Jasson Layne MD Unavailable [phone] Brice Mondragon MD Primary Care Provider Fortino Alicia MD Primary Care Provider [phone] Encounter Details Date Type Department Care Team (Late st Contact Info) Description 08/05/2022 Lab Requisition [facility] Laboratory Services 1 [place] [address] Brice Mondragon MD [address] [place] [address] [facility] [address] [place] [address] Encounter for screening for COVID-19 [...] Associated Diagnosis Comments SARS-COV-2 BY MOLECULAR Routine 08/05/2022 8:27 AM APPLICATION SUPPORT ENGINEER Encounter for screening for COVID-19 documented in this encounter Results * SARS-COV-2 BY MOLECULAR (08/05/2022 8:27 AM APPLICATION SUPPORT ENGINEER) SARSCOV2 NOT DETECTED (Referen ce Range for this test is Not Detected ) [facility] THERMOFISHER FAST DX 08/05/2022 11:05 PM APPLICATION SUPPORT ENGINEER [facility] Comment:This test was perfor med by a RT-PCR method. Other Non-Phlebotomy Collection / Unknown 08/05/2022 8:27 AM APPLICATION SUPPORT ENGINEER 08/05/2022 10:25 AM APPLICATION SUPPORT ENGINEER Narrative [facility] - 08/05/2022 11:05 PM APPLICATION SUPPORT ENGINEER Authorized Fact Sheets about this test for providers and patients are available at: https://www.fda.gov/medical-devices/dcvdarecp-qhzbxrxjlw-vknngrv-devices/emergen cy-us e-authorizations us Brice Mondragon MD MICROBIOLOGY - GENERAL ORDERAB LES Final Result [facility] [address] [id number], documented in this encounter Visit Diagnoses Diagnosis Encounter for screening for COVID-19 documented in this encounter Additional Health Concerns Infection Onset Date Last Indicated Resolved Time COVID - 19 06/24/2022 09/09/2022 09/19/2022 12:1 6 AM CDT documented as of this encounter Care Teams Stenographic Court Reporter Relationship Specialty Start Date End Date Brice Mondragon MD [address] [place] [address] [address] [place] [address] PCP - General Family Medicine 03/12/20 11/05/22 Fortino Alicia MD [address] [place] [address] PCP - General Internal Medicine 11/06/22 Jasson Layne MD Consulting Physician Neurology 04/02/16 05/07/24 documented as of this encounter
--- OUTSIDE RECORDS SUMMARY | 2024-11-28 09:20 | XMS_ITS | Encounter Summary ---
Author Organization [facility] Address [address] [place] [address] Phone Care Team Providers Care Wafer Production Worker Name Role Phone Jasson Layne MD Unavailable Brice Mondragon MD Primary Care Provider [phone] Fortino Alicia MD Primary Care Provider [phone] Encounter Details Date Type Department Care Team (Late st Contact Info) Description 01/14/2022 Lab Requisition [facility] Laboratory Services 1 [place] [address] Brice Mondragon MD [address] [place] [address] [facility] [address] [place] [address] Encounter for screening for COVID-19 [...] Associated Diagnosis Comments SARS-COV-2 BY MOLECULAR Routine 01/14/2022 8:29 AM CDT Encounter for screening for COVID-19 documented in this encounter Results * SARS-COV-2 BY MOLECULAR (01/14/2022 8:29 AM CDT) SARSCOV2 NOT DETECTED (Referen ce Range for this test is Not Detected ) [facility] THERMOFISHER FAST DX 01/15/2022 7:37 AM CDT [facility] Comment:This test was perfor med by a RT-PCR method. Other Non-Phlebotomy Collection / Unknown 01/14/2022 8:29 AM CDT 01/14/2022 1:53 PM CDT Narrative [facility] - 01/15/2022 7:37 AM CDT Authorized Fact Sheets about this test for providers and patients are available at: https://www.fda.gov/medical-devices/uelqkzimp-srxnqfhyov-syzbqzr-devices/emergen -us e-authorizations us Brice Mondragon MD MICROBIOLOGY - GENERAL ORDERAB LES Final Result [facility] [address] [place] [address], documented in this encounter Visit Diagnoses Diagnosis Encounter for screening for COVID-19 documented in this encounter Additional Health Concerns Infection Onset Date Last Indicated Resolved Time COVID - 19 10/08/2021 05/06/2022 05/16/2022 12:1 6 AM COUNTER PROFESSIONAL COVID - 19 06/24/2022 09/09/2022 09/19/2022 12:1 6 AM CDT documented as of this encounter Care Teams Wafer Production Worker Relationship Specialty Start Date End Date Brice Mondragon MD [address] [place] [address] [address] [place] [address] PCP - General Family Medicine 03/12/20 11/05/22 Fortino Alicia MD [address] [facility] [address] [place] [address] PCP - General Internal Medicine 11/06/22 Jasson Layne MD Consulting Physician Neurology 04/02/16 05/07/24 documented as of this encounter
--- OUTSIDE RECORDS SUMMARY | 2024-11-28 09:20 | XMS_ITS | Encounter Summary ---
Author Organization [facility] Address [address] [place] [address] Phone Care Team Providers Care Fire Patroller Name Role Phone Jasson Layne MD Unavailable [phone] Brice Mondragon MD Primary Care Provider Fortino Alicia MD Primary Care Provider [phone] Encounter Details Date Type Department Care Team (Late st Contact Info) Description 02/25/2022 Lab Requisition [facility] Laboratory Services 1 [place] [address] Brice Mondragon MD [address] [place] [address] [facility] [address] [place] [address] Encounter for screening for COVID-19 [...] Associated Diagnosis Comments SARS-COV-2 BY MOLECULAR Routine 02/25/2022 8:27 AM CDT Encounter for screening for COVID-19 documented in this encounter Results * SARS-COV-2 BY MOLECULAR (02/25/2022 8:27 AM CDT) SARSCOV2 NOT DETECTED (Referen ce Range for this test is Not Detected ) [facility] THERMOFISHER FAST DX 02/26/2022 6:15 AM CDT [facility] Comment:This test was perfor med by a RT-PCR method. Other Non-Phlebotomy Collection / Unknown 02/25/2022 8:27 AM CDT 02/25/2022 11:55 AM CDT Narrative [facility] - 02/26/2022 6:15 AM CDT Authorized Fact Sheets about this test for providers and patients are available at: https://www.fda.gov/medical-devices/ohzrinjrw-pivmzucuac-tpchqpo-devices/emergen -us e-authorizations us Brice Mondragon MD MICROBIOLOGY - GENERAL ORDERAB LES Final Result [facility] [address] [place] [address], documented in this encounter Visit Diagnoses Diagnosis Encounter for screening for COVID-19 documented in this encounter Additional Health Concerns Infection Onset Date Last Indicated Resolved Time COVID - 19 10/08/2021 05/06/2022 05/16/2022 12:1 6 AM RAMP AND CARGO SUPERVISOR COVID - 19 06/24/2022 09/09/2022 09/19/2022 12:1 6 AM CDT documented as of this encounter Care Teams Fire Patroller Relationship Specialty Start Date End Date Brice Mondragon MD [address] [place] [address] [address] [place] [address] PCP - General Family Medicine 03/12/20 11/05/22 Fortino Alicia MD [address] [facility] [address] [place] [address] PCP - General Internal Medicine 11/06/22 Jasson Layne MD Consulting Physician Neurology 04/02/16 05/07/24 documented as of this encounter
--- OUTSIDE RECORDS SUMMARY | 2024-11-28 09:20 | XMS_ITS | Encounter Summary ---
Author Organization [facility] Address [address] [place] [address] Phone Care Team Providers Care Posting Clerk Name Role Phone Jasson Layne MD Unavailable Brice Mondragon MD Primary Care Provider [phone] Fortino Alicia MD Primary Care Provider [phone] Encounter Details Date Type Department Care Team (Late st Contact Info) Description 12/03/2021 Lab Requisition [facility] Laboratory Services 1 [place] [address] Brice Mondragon MD [address] [place] [address] [facility] [address] [place] [address] Encounter for screening for COVID-19 [...] Associated Diagnosis Comments SARS-COV-2 BY MOLECULAR Routine 12/03/2021 9:05 AM CDT Encounter for screening for COVID-19 documented in this encounter Results * SARS-COV-2 BY MOLECULAR (12/03/2021 9:05 AM CDT) SARSCOV2 NOT DETECTED (Referen ce Range for this test is Not Detected ) [facility] THERMOFISHER FAST DX 12/04/2021 6:49 AM CDT [facility] Comment:This test was perfor med by a RT-PCR method. Other Non-Phlebotomy Collection / Unknown 12/03/2021 9:05 AM CDT 12/03/2021 12:14 PM CDT Narrative [facility] - 12/04/2021 6:49 AM CDT Authorized Fact Sheets about this test for providers and patients are available at: https://www.fda.gov/medical-devices/cqrlffsjy-rmtnepgpip-lybuzxt-devices/emergen -us e-authorizations us Brice Mondragon MD MICROBIOLOGY - GENERAL ORDERAB LES Final Result [facility] [address] [place] [address], documented in this encounter Visit Diagnoses Diagnosis Encounter for screening for COVID-19 documented in this encounter Additional Health Concerns Infection Onset Date Last Indicated Resolved Time COVID - 19 10/08/2021 05/06/2022 05/16/2022 12:1 6 AM EXTENDED DAY TEACHER COVID - 19 06/24/2022 09/09/2022 09/19/2022 12:1 6 AM CDT documented as of this encounter Care Teams Posting Clerk Relationship Specialty Start Date End Date Brice Mondragon MD [address] [place] [address] [address] [place] [address] PCP - General Family Medicine 03/12/20 11/05/22 Fortino Alicia MD [address] [facility] [address] [place] [address] PCP - General Internal Medicine 11/06/22 Jasson Layne MD Consulting Physician Neurology 04/02/16 05/07/24 documented as of this encounter
--- OUTSIDE RECORDS SUMMARY | 2024-11-28 09:20 | XMS_ITS | Encounter Summary ---
Author Organization [facility] Address [address] [place] [address] Phone Care Team Providers Care Pantograph Machine Operator Name Role Phone Jasson Layne MD Unavailable [phone] Brice Mondragon MD Primary Care Provider [phone] Fortino Alicia MD Primary Care Provider [phone] Encounter Details Date Type Department Care Team (Late st Contact Info) Description 11/12/2021 Lab Requisition [facility] Laboratory Services 1 [place] [address] Brice Mondragon MD [address] [place] [address] [facility] [address] [place] [address] Encounter for screening for COVID-19 [...] Associated Diagnosis Comments SARS-COV-2 BY MOLECULAR Routine 11/12/2021 9:32 AM CDT Encounter for screening for COVID-19 documented in this encounter Results * SARS-COV-2 BY MOLECULAR (11/12/2021 9:32 AM CDT) SARSCOV2 NOT DETECTED (Referen ce Range for this test is Not Detected ) [facility] THERMOFISHER FAST DX 11/13/2021 6:32 PM CDT [facility] Comment:This test was perfor med by a RT-PCR method. Other Non-Phlebotomy Collection / Unknown 11/12/2021 9:32 AM CDT 11/12/2021 10:46 AM CDT Narrative [facility] - 11/13/2021 6:32 PM CDT Authorized Fact Sheets about this test for providers and patients are available at: https://www.fda.gov/medical-devices/mgwshvfcb-qxbbicaxeg-taksoig-devices/emergen -us e-authorizations us Brice Mondragon MD MICROBIOLOGY - GENERAL ORDERAB LES Final Result [facility] [address] [place] [address], documented in this encounter Visit Diagnoses Diagnosis Encounter for screening for COVID-19 documented in this encounter Additional Health Concerns Infection Onset Date Last Indicated Resolved Time COVID - 19 10/08/2021 05/06/2022 05/16/2022 12:1 6 AM EMERGENCY ROOM ORDERLY COVID - 19 06/24/2022 09/09/2022 09/19/2022 12:1 6 AM CDT documented as of this encounter Care Teams Pantograph Machine Operator Relationship Specialty Start Date End Date Brice Mondragon MD [address] [place] [address] [address] [place] [address] PCP - General Family Medicine 03/12/20 11/05/22 Fortino Alicia MD [address] [facility] [address] [place] [address] PCP - General Internal Medicine 11/06/22 Jasson Layne MD Consulting Physician Neurology 04/02/16 05/07/24 documented as of this encounter
--- OUTSIDE RECORDS SUMMARY | 2024-11-28 09:20 | XMS_ITS | Encounter Summary ---
Author Organization [facility] Address [address] [place] [address] Phone Care Team Providers Care Representative Personal Service Name Role Phone Jasson Layne MD Unavailable [phone] Brice Mondragon MD Primary Care Provider [phone] Fortino Alicia MD Primary Care Provider [phone] Encounter Details Date Type Department Care Team (Late st Contact Info) Description 03/04/2022 Lab Requisition [facility] Laboratory Services 1 [place] [address] Brice Mondragon MD [address] [place] [address] [facility] [address] [place] [address] Encounter for screening for COVID-19 [...] Associated Diagnosis Comments SARS-COV-2 BY MOLECULAR Routine 03/04/2022 8:15 AM CDT Encounter for screening for COVID-19 documented in this encounter Results * SARS-COV-2 BY MOLECULAR (03/04/2022 8:15 AM CDT) SARSCOV2 NOT DETECTED (Referen ce Range for this test is Not Detected ) [facility] THERMOFISHER FAST DX 03/05/2022 8:42 AM CDT [facility] Comment:This test was perfor med by a RT-PCR method. Other COVID 19 Home Health/ [facility] Collection / Unknown 03/04/2022 8:15 AM CDT 03/04/2022 1:40 PM CDT Narrative [facility] - 03/05/2022 8:42 AM CDT Authorized Fact Sheets about this test for providers and patients are available at: https://www.fda.gov/medical-devices/vfzgnsirp-zzxnmxloch-vmvxynf-devices/emergen -us e-authorizations us Brice Mondragon MD MICROBIOLOGY - GENERAL ORDERAB LES Final Result [facility] [address] [facility] [place] [address], documented in this encounter Visit Diagnoses Diagnosis Encounter for screening for COVID-19 documented in this encounter Additional Health Concerns Infection Onset Date Last Indicated Resolved Time COVID - 19 10/08/2021 05/06/2022 05/16/2022 12:1 6 AM MOLD DRESSER COVID - 19 06/24/2022 09/09/2022 09/19/2022 12:1 6 AM CDT documented as of this encounter Care Teams Representative Personal Service Relationship Specialty Start Date End Date Brice Mondragon MD [address] [place] [address] [facility] [address] [place] [address] PCP - General Family Medicine 03/12/20 11/05/22 Fortino Alicia MD [address] [facility] [address] [place] [address] PCP - General Internal Medicine 11/06/22 Jasson Layne MD Consulting Physician Neurology 04/02/16 05/07/24 documented as of this encounter
--- OUTSIDE RECORDS SUMMARY | 2024-11-28 09:20 | XMS_ITS | Encounter Summary ---
Author Organization [facility] Address [address] [place] [address] Phone Care Team Providers Care Hotbed Lever Operator Name Role Phone Jasson Layne MD Unavailable [phone] Brice Mondragon MD Primary Care Provider [phone] Fortino Alicia MD Primary Care Provider [phone] Encounter Details Date Type Department Care Team (Late st Contact Info) Description 12/17/2021 Lab Requisition [facility] Laboratory Services 1 [place] [address] Brice Mondragon MD [address] [place] [address] [facility] [address] [place] [address] Encounter for screening for COVID-19 [...] Associated Diagnosis Comments SARS-COV-2 BY MOLECULAR Routine 12/17/2021 8:30 AM CDT Encounter for screening for COVID-19 documented in this encounter Results * SARS-COV-2 BY MOLECULAR (12/17/2021 8:30 AM CDT) SARSCOV2 NOT DETECTED (Referen ce Range for this test is Not Detected ) [facility] THERMOFISHER FAST DX 12/18/2021 6:17 AM CDT [facility] Comment:This test was perfor med by a RT-PCR method. Other Non-Phlebotomy Collection / Unknown 12/17/2021 8:30 AM CDT 12/17/2021 10:51 AM CDT Narrative [facility] - 12/18/2021 6:17 AM CDT Authorized Fact Sheets about this test for providers and patients are available at: https://www.fda.gov/medical-devices/nkmcxgsaf-kvfesfxscu-paojbja-devices/emergen -us e-authorizations us Brice Mondragon MD MICROBIOLOGY - GENERAL ORDERAB LES Final Result [facility] [address] [place] [address], documented in this encounter Visit Diagnoses Diagnosis Encounter for screening for COVID-19 documented in this encounter Additional Health Concerns Infection Onset Date Last Indicated Resolved Time COVID - 19 10/08/2021 05/06/2022 05/16/2022 12:1 6 AM RIVER GUIDE COVID - 19 06/24/2022 09/09/2022 09/19/2022 12:1 6 AM CDT documented as of this encounter Care Teams Hotbed Lever Operator Relationship Specialty Start Date End Date Brice Mondragon MD [address] [place] [address] [address] [place] [address] PCP - General Family Medicine 03/12/20 11/05/22 Fortino Alicia MD [address] [facility] [address] [place] [address] PCP - General Internal Medicine 11/06/22 Jasson Layne MD Consulting Physician Neurology 04/02/16 05/07/24 documented as of this encounter
--- OUTSIDE RECORDS SUMMARY | 2024-11-28 09:20 | XMS_ITS | Encounter Summary ---
Author Organization [facility] Address [address] [place] [address] Phone Care Team Providers Care Pipeline Maintenance Supervisor Name Role Phone Jasson Layne MD Unavailable [phone] Brice Mondragon MD Primary Care Provider [phone] Fortino Alicia MD Primary Care Provider [phone] Encounter Details Date Type Department Care Team (Late st Contact Info) Description 05/14/2021 Lab Requisition [facility] Laboratory Services 1 [place] [id number] Brice Mondragon MD [address] [place] [address] [facility] [address] [place] [address] Social History Tobacco Use Types Packs/Day Years [...] Associated Diagnosis Comments SARS-COV-2 BY MOLECULAR Routine 05/14/2021 8:54 AM TESTER OPERATOR documented in this encounter Results * SARS-COV-2 BY MOLECULAR (05/14/2021 8:54 AM TESTER OPERATOR) SARSCOV2 NOT DETECTED (Referen ce Range for this test is Not Detected ) [facility] THERMOFISHER FAST DX 05/15/2021 9:13 AM TESTER OPERATOR [facility] Comment:This test was perfor med by a RT-PCR method. Other Non-Phlebotomy Collection / Unknown 05/14/2021 8:54 AM TESTER OPERATOR 05/14/2021 11:11 AM TESTER OPERATOR Narrative [facility] - 05/15/2021 9:13 AM TESTER OPERATOR Authorized Fact Sheets about this test for providers and patients are available at: https://www.fda.gov/medical-devices/juweaeddj-kpbgosgntr-mzdtusc-devices/emergen cy-us e-authorizations us Brice Mondragon MD MICROBIOLOGY - GENERAL ORDERAB LES Final Result Performing Organization Address City/State/[facility] Co de Phone Number [facility] [address] [place] [address], documented in this encounter Visit Diagnoses Not on filedocumented in this encounter Additional Health Concerns Infection Onset Date Last Indicated Resolved Time COVID - 19 03/19/2021 07/02/2021 07/04/2021 7:20 PM TESTER OPERATOR COVID - 19 Confirmed 07/02/2021 07/02/2021 022 12:17 AM TESTER OPERATOR COVID - 19 07/23/2021 08/13/2021 09/02/2021 12:1 6 AM TESTER OPERATOR COVID - 19 10/08/2021 05/06/2022 05/16/2022 12:1 6 AM TESTER OPERATOR COVID - 19 06/24/2022 09/09/2022 09/19/2022 12:1 6 AM CDT documented as of this encounter Care Teams Pipeline Maintenance Supervisor Relationship Specialty Start Date End Date Brice Mondragon MD [address] [facility] [address] [place] [address] PCP - General Family Medicine 03/12/20 11/05/22 Fortino Alicia MD [address] [facility] [address] [place] [address] PCP - General Internal Medicine 11/06/22 Jasson Layne MD Consulting Physician Neurology 04/02/16 05/07/24 documented as of this encounter
--- OUTSIDE RECORDS SUMMARY | 2024-11-28 09:20 | XMS_ITS | Encounter Summary ---
Author Organization [facility] Address [address] [place] [address] Phone Care Team Providers Care Spectrographer Name Role Phone Jasson Layne MD Unavailable [phone] Brice Mondragon MD Primary Care Provider [phone] Fortino Alicia MD Primary Care Provider [phone] Encounter Details Date Type Department Care Team (Late st Contact Info) Description 05/21/2021 Lab Requisition [facility] Laboratory Services 1 [place] [id number] Brice Mondragon MD [address] [place] [address] [facility] [address] [place] [address] Social History Tobacco Use Types [...] Associated Diagnosis Comments SARS-COV-2 BY MOLECULAR Routine 05/21/2021 8:23 AM CORONER/MEDICAL EXAMINER documented in this encounter Results * SARS-COV-2 BY MOLECULAR (05/21/2021 8:23 AM CORONER/MEDICAL EXAMINER) SARSCOV2 NOT DETECTED (Referen ce Range for this test is Not Detected ) [facility] THERMOFISHER FAST DX 2021 10:21 AM CORONER/MEDICAL EXAMINER [facility] Comment:This test was perfor med by a RT-PCR method. Other Non-Phlebotomy Collection / Unknown 05/21/2021 8:23 AM CORONER/MEDICAL EXAMINER 05/21/2021 10:49 AM CORONER/MEDICAL EXAMINER Narrative [facility] - 2021 10:21 AM CORONER/MEDICAL EXAMINER Authorized Fact Sheets about this test for providers and patients are available at: https://www.fda.gov/medical-devices/afmrlnpzd-vayhqltqju-upmqako-devices/emergen cy-us e-authorizations us Brice Mondragon MD MICROBIOLOGY - GENERAL ORDERAB LES Final Result Performing Organization Address City/State/[facility] Co de Phone Number [facility] [address] [place] [address], documented in this encounter Visit Diagnoses Not on filedocumented in this encounter Additional Health Concerns Infection Onset Date Last Indicated Resolved Time COVID - 19 03/19/2021 07/02/2021 07/04/2021 7:20 PM CORONER/MEDICAL EXAMINER COVID - 19 Confirmed 07/02/2021 07/02/2021 022 12:17 AM CORONER/MEDICAL EXAMINER COVID - 19 07/23/2021 08/13/2021 09/02/2021 12:1 6 AM CORONER/MEDICAL EXAMINER COVID - 19 10/08/2021 05/06/2022 05/16/2022 12:1 6 AM CORONER/MEDICAL EXAMINER COVID - 19 06/24/2022 09/09/2022 09/19/2022 12:1 6 AM CDT documented as of this encounter Care Teams Spectrographer Relationship Specialty Start Date End Date Brice Mondragon MD [address] [facility] [address] [place] [address] PCP - General Family Medicine 03/12/20 11/05/22 Fortino Alicia MD [address] [facility] [address] [place] [address] PCP - General Internal Medicine 11/06/22 Jasson Lyane MD Consulting Physician Neurology 04/02/16 05/07/24 documented as of this encounter
--- OUTSIDE RECORDS SUMMARY | 2024-11-28 09:20 | XMS_ITS | Encounter Summary ---
Author Organization [facility] Address [address] [place] [address] Phone Care Team Providers Care Director Script Name Role Phone Jasson Layne MD Unavailable [phone] Brice Mondragon MD Primary Care Provider [phone] Fortino Alicia MD Primary Care Provider [phone] Encounter Details Date Type Department Care Team (Late st Contact Info) Description 07/23/2021 Lab Requisition [facility] Laboratory Services [address] [place] [address] Brice Mondragon MD [address] [place] [address] [facility] [address] [place] [address] Encounter for screening for COVID-19 [...] Associated Diagnosis Comments SARS-COV-2 BY MOLECULAR Routine 07/23/2021 8:08 AM BREAST PULLER Encounter for screening for COVID-19 documented in this encounter Results * SARS-COV-2 BY MOLECULAR (07/23/2021 8:08 AM BREAST PULLER) SARSCOV2 NOT DETECTED (Referen ce Range for this test is Not Detected ) [facility] THERMOFISHER FAST DX 07/24/2021 9:00 AM BREAST PULLER [facility] Comment:This test was perfor med by a RT-PCR method. Other Non-Phlebotomy Collection / Unknown 07/23/2021 8:08 AM BREAST PULLER 07/23/2021 11:58 AM BREAST PULLER Narrative [facility] - 07/24/2021 9:00 AM BREAST PULLER Authorized Fact Sheets about this test for providers and patients are available at: https://www.fda.gov/medical-devices/tsxeqhgpr-cuzmweklip-kfqblyv-devices/emergen -us e-authorizations us Brice Mondragon MD MICROBIOLOGY - GENERAL ORDERAB LES Final Result [facility] [address] [place] [address], documented in this encounter Visit Diagnoses Diagnosis Encounter for screening for COVID-19 documented in this encounter Additional Health Concerns Infection Onset Date Last Indicated Resolved Time COVID - 19 07/23/2021 08/13/2021 09/02/2021 12:1 6 AM BREAST PULLER COVID - 19 10/08/2021 05/06/2022 05/16/2022 12:1 6 AM BREAST PULLER COVID - 19 06/24/2022 09/09/2022 09/19/2022 12:1 6 AM CDT documented as of this encounter Care Teams Director Script Relationship Specialty Start Date End Date Brice Mondragon MD 4 [facility] [address] [place] [address] PCP - General Family Medicine 03/12/20 11/05/22 Fortino Alicia MD [address] [facility] [address] [place] [address] PCP - General Internal Medicine 11/06/22 Jasson Layne MD Consulting Physician Neurology 04/02/16 05/07/24 documented as of this encounter
--- OUTSIDE RECORDS SUMMARY | 2024-11-28 09:20 | XMS_ITS | Encounter Summary ---
Author Organization [facility] Address [address] [place] [address] Phone Care Team Providers Care Matching Machine Operator Name Role Phone Jasson Layne MD Unavailable [phone] Brice Mondragon MD Primary Care Provider [phone] Fortino Alicia MD Primary Care Provider [phone] Encounter Details Date Type Department Care Team (Late st Contact Info) Description 07/02/2021 Lab Requisition [facility] Laboratory Services 1 [place] [address] Brice Mondragon MD [address] [place] [address] [facility] [address] [place] [address] Social History Tobacco Use Types [...] Associated Diagnosis Comments SARS-COV-2 BY MOLECULAR Routine 07/02/2021 8:49 AM ASSEMBLER BODY documented in this encounter Results * (ABNORMAL) SARS-COV-2 BY MOLECULAR (07/02/2021 8:49 AM ASSEMBLER BODY) SARSCOV2 DETECTED( A) (Referenc e Range for this test is Not Detected) [facility] THERMOFISHER FAST DX 07/04/2021 7:20 PM ASSEMBLER BODY [facility] Comment:This test was perfor med by a RT-PCR method. Other Non-Phlebotomy Collection / Unknown 07/02/2021 8:49 AM ASSEMBLER BODY 07/02/2021 12:07 PM ASSEMBLER BODY Narrative [facility] - 07/04/2021 7:20 PM ASSEMBLER BODY Authorized Fact Sheets about this test for providers and patients are available at: https://www.fda.gov/medical-devices/dthlfwjxc-cumkwupwfh-rbldrve-devices/emergen -us e-authorizations us Brice Mondragon MD MICROBIOLOGY - GENERAL ORDERAB LES Final Result [facility] [address] [place] [address], documented in this encounter Visit Diagnoses Not on filedocumented in this encounter Additional Health Concerns Infection Onset Date Last Indicated Resolved Time COVID - 19 03/19/2021 07/02/2021 07/04/2021 7:20 PM ASSEMBLER BODY COVID - 19 Confirmed 07/02/2021 07/02/2021 022 12:17 AM ASSEMBLER BODY COVID - 19 07/23/2021 08/13/2021 09/02/2021 12:1 6 AM ASSEMBLER BODY COVID - 19 10/08/2021 05/06/2022 05/16/2022 12:1 6 AM ASSEMBLER BODY COVID - 19 06/24/2022 09/09/2022 09/19/2022 12:1 6 AM CDT documented as of this encounter Care Teams Matching Machine Operator Relationship Specialty Start Date End Date Brice Mondragon MD [address] [facility] [address] [place] [address] PCP - General Family Medicine 03/12/20 11/05/22 Fortino Alicia MD [address] [place] [address] PCP - General Internal Medicine 11/06/22 Jasson Layne MD Consulting Physician Neurology 04/02/16 05/07/24 documented as of this encounter
--- OUTSIDE RECORDS SUMMARY | 2024-11-28 09:20 | XMS_ITS | Encounter Summary ---
Author Organization [facility] Address [address] [place] [address] Phone Care Team Providers Care Z [employer] Programmer Name Role Phone Jasson Layne MD Unavailable [phone] Brice Mondragon MD Primary Care Provider [phone] Fortino Alicia MD Primary Care Provider [phone] Encounter Details Date Type Department Care Team (Late st Contact Info) Description 09/09/2022 Lab Requisition [facility] Laboratory Services 1 [place] [address] Brice Mondragon MD [address] [place] [address] [facility] [address] [place] [address] Encounter for screening for COVID-19 [...] Associated Diagnosis Comments SARS-COV-2 BY MOLECULAR Routine 09/09/2022 8:17 AM CDT Encounter for screening for COVID-19 documented in this encounter Results * SARS-COV-2 BY MOLECULAR (09/09/2022 8:17 AM CDT) SARSCOV2 NOT DETECTED (Referen ce Range for this test is Not Detected ) [facility] THERMOFISHER FAST DX 09/09/2022 5:01 PM CDT [facility] Comment:This test was perfor med by a RT-PCR method. Other COVID 19 Home Health/ Custodial Facility Collection / Unknown 09/09/2022 8:17 AM CDT 09/09/2022 9:21 AM CDT Narrative [facility] - 09/09/2022 5:01 PM CDT Authorized Fact Sheets about this test for providers and patients are available at: https://www.fda.gov/medical-devices/prgzquolh-yycnnolddz-potjbdw-devices/emergen -us e-authorizations us Brice Mondragon MD MICROBIOLOGY - GENERAL ORDERAB LES Final Result [facility] [address] [place] [id number], documented in this encounter Visit Diagnoses Diagnosis Encounter for screening for COVID-19 documented in this encounter Additional Health Concerns Infection Onset Date Last Indicated Resolved Time COVID - 19 06/24/2022 09/09/2022 09/19/2022 12:1 6 AM CDT documented as of this encounter Care Teams Z [employer] Programmer Relationship Specialty Start Date End Date Brice Mondragon MD [address] [place] [address] [address] [place] [address] PCP - General Family Medicine 03/12/20 11/05/22 Fortino Alicia MD [address] [place] [address] PCP - General Internal Medicine 11/06/22 Jasson Layne MD Consulting Physician Neurology 04/02/16 05/07/24 documented as of this encounter
--- OUTSIDE RECORDS SUMMARY | 2024-11-28 09:20 | XMS_ITS | Encounter Summary ---
Author Organization [facility] Address [address] [place] [address] Phone Care Team Providers Care Rn Embedded Name Role Phone Jasson Layne MD Unavailable [phone] Brice Mondragon MD Primary Care Provider [phone] Fortino Alicia MD Primary Care Provider [phone] Reason for Referral * Radiology Services (Routine) - Closed Specialty Diagnoses / Procedures Referred By Contac t Referred To Contact Radiology Diagnoses Allergy, initial encounter Procedures XR CHEST 2 VIEWS Provider, Not On File [place] Referral ID Status Reason Start Date Expiration Date Visits Re quested Visits Authorized [id number] Closed 02/20/2022 1 1 Encounter Details Date Type Department Care Team (Latest Contact Info) Description 02/20/2022 Transcribe Orders [facility] Patient Access Admitting 1 [place] [address] Provider, Not On File [place] Allergy, initial encounter (Primary Dx) Social History Tobacco Use Types Packs/Day Years [...] on file documented as of this encounter Results * XR CHEST 2 VIEWS (02/20/2022 9:58 AM CDT) Anatomical Region Laterality Modality Chest N/A Digital Radiogra phy 02/23/2022 11:1 4 AM CDT Impressions 02/23/2022 11:17 AM CDT IMPRESSION: No acute cardiopulmonary abnormality. Narrative 02/23/2022 11:17 AM CDT EXAM DESCRIPTION: XR CHEST 2 VIEWS REASON FOR STUDY: Allergy, unspecified, initial encounter . TB allergy x1 week. TECHNIQUE: Frontal and lateral radiographic views of the chest acquired. COMPARISON: Chest radiograph 06/28/2020 FINDINGS: LUNGS/PLEURA: No focal consolidation or pneumothorax. No pleural effusion. HEART/MEDIASTINUM: Heart size is normal. Normal mediastinal and hilar contours. HARDWARE/LINES/TUBES: None. BONES: No acute findings. OTHER: Aortic calcifications. THIS IS AN ELECTRONICALLY VERIFIED FINAL REPORT 02/23/2022 11:14 AM - Electronically signed by Jay Casillas M.D., JR: Report ID: [id number] Reading Location: [id number] Procedure Note Jay Casillas MD - 02/23/2022 EXAM DESCRIPTION: XR CHEST 2 VIEWS REASON FOR STUDY: Allergy, unspecified, initial encounter . TB allergy x1 week. TECHNIQUE: Frontal and lateral radiographic views of the chest acquired. COMPARISON: Chest radiograph 06/28/2020 FINDINGS: LUNGS/PLEURA: No focal consolidation or pneumothorax. No pleural effusion. HEART/MEDIASTINUM: Heart size is normal. Normal mediastinal and hilar contours. HARDWARE/LINES/TUBES: None. BONES: No acute findings. OTHER: Aortic calcifications. THIS IS AN ELECTRONICALLY VERIFIED FINAL REPORT 02/23/2022 11:14 AM - Electronically signed by Jay Casillas M.D. JR: Report ID: [id number] Reading Location: [id number] IMPRESSION: No acute cardiopulmonary abnormality. 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
--- OUTSIDE RECORDS SUMMARY | 2024-11-28 09:20 | XMS_ITS | Encounter Summary ---
Author Organization [facility] Address [address] [place] [address] Phone Care Team Providers Care Integrated Logistics Support Manager Name Role Phone Jasson Layne MD Unavailable [phone] Brice Mondragon MD Primary Care Provider [phone] Fortino Alicia MD Primary Care Provider [phone] Encounter Details Date Type Department Care Team (Late st Contact Info) Description 04/29/2022 Lab Requisition [facility] Laboratory Services 1 [place] [address] Brice Mondragon MD [address] [place] [address] [facility] [address] [place] [address] Encounter for screening for COVID-19 [...] Associated Diagnosis Comments SARS-COV-2 BY MOLECULAR Routine 04/29/2022 8:35 AM CDT Encounter for screening for COVID-19 documented in this encounter Results * SARS-COV-2 BY MOLECULAR (04/29/2022 8:35 AM CDT) SARSCOV2 NOT DETECTED (Referen ce Range for this test is Not Detected ) [facility] THERMOFISHER FAST DX 04/30/2022 12:01 AM CDT [facility] Comment:This test was perfor med by a RT-PCR method. Other Non-Phlebotomy Collection / Unknown 04/29/2022 8:35 AM CDT 04/29/2022 12:15 PM CDT Narrative [facility] - 04/30/2022 12:01 AM CDT Authorized Fact Sheets about this test for providers and patients are available at: https://www.fda.gov/medical-devices/iugklvsco-dubhhilukc-eedhvbp-devices/emergen -us e-authorizations us Brice Mondragon MD MICROBIOLOGY - GENERAL ORDERAB LES Final Result [facility] [address] [place] [id number], documented in this encounter Visit Diagnoses Diagnosis Encounter for screening for COVID-19 documented in this encounter Additional Health Concerns Infection Onset Date Last Indicated Resolved Time COVID - 19 10/08/2021 05/06/2022 05/16/2022 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
--- OUTSIDE RECORDS SUMMARY | 2024-11-28 09:20 | XMS_ITS | Encounter Summary ---
Author Organization [facility] Address [address] [place] [address] Phone Care Team Providers Care Produce Buyer Name Role Phone Jasson Layne MD Unavailable [phone] Brice Mondragon MD Primary Care Provider [phone] Fortino Alicia MD Primary Care Provider [phone] Encounter Details Date Type Department Care Team (Late st Contact Info) Description 08/12/2022 Lab Requisition [facility] Laboratory Services 1 [place] [address] Brice Mondragon MD [address] [place] [address] [facility] [address] [place] [address] Encounter for screening for COVID-19 [...] Associated Diagnosis Comments SARS-COV-2 BY MOLECULAR Routine 08/12/2022 12: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 THERMOFISHER FAST DX 08/12/2022 11:48 PM ELEMENTARY [employer] TEACHER [facility] Comment:This test was perfor med by a RT-PCR method. Other Non-Phlebotomy Collection / Unknown 08/12/2022 12:42 PM ELEMENTARY [employer] TEACHER 08/12/2022 1:56 PM ELEMENTARY [employer] TEACHER Narrative [facility] - 08/12/2022 11:48 PM ELEMENTARY [employer] TEACHER Authorized Fact Sheets about this test for providers and patients are available at: https://www.fda.gov/medical-devices/voywgxlwo-kcmlnceqfb-ibhtuit-devices/emergen cy-us e-authorizations us Brice Mondragon MD MICROBIOLOGY - GENERAL ORDERAB LES Final Result [facility] [address] [place] [id number], documented in this encounter Visit Diagnoses Diagnosis Encounter for screening for COVID-19 documented in this encounter Additional Health Concerns Infection Onset Date Last Indicated Resolved Time COVID - 19 06/24/2022 09/09/2022 09/19/2022 12:1 6 AM CDT documented as of this encounter Care Teams Produce Buyer Relationship Specialty Start Date End Date Brice Mondragon MD [address] [place] [address] [address] [place] [address] PCP - General Family Medicine 03/12/20 11/05/22 Fortino Alicia MD [address] [place] [address] PCP - General Internal Medicine 11/06/22 Jasson Layne MD Consulting Physician Neurology 04/02/16 05/07/24 documented as of this encounter
--- OUTSIDE RECORDS SUMMARY | 2024-11-28 09:21 | XMS_ITS | Encounter Summary ---
Author Organization [facility] Address [address] [place] [address] Phone Care Team Providers Care Filer Finish Name Role Phone Jasson Layne MD Unavailable [phone] Brice Mondragon MD Primary Care Provider [phone] Fortino Alicia MD Primary Care Provider [phone] Encounter Details Date Type Department Care Team (Late st Contact Info) Description 03/19/2021 Lab Requisition [facility] Laboratory Services 1 [place] [id number] Brice Mondragon MD [address] [place] [address] [facility] [address] [place] [address] Social History Tobacco Use Types [...] Associated Diagnosis Comments SARS-COV-2 BY MOLECULAR Routine 03/19/2021 7:17 AM CDT documented in this encounter Results * SARS-COV-2 BY MOLECULAR (03/19/2021 7:17 AM CDT) SARSCOV2 NOT DETECTED (Referen ce Range for this test is Not Detected ) [facility] THERMOFISHER FAST DX 03/20/2021 8:26 AM CDT [facility] Comment:This test was perfor med by a RT-PCR method. Other Non-Phlebotomy Collection / Unknown 03/19/2021 7:17 AM CDT 03/19/2021 11:07 AM CDT Narrative [facility] - 03/20/2021 8:26 AM CDT Authorized Fact Sheets about this test for providers and patients are available at: https://www.fda.gov/medical-devices/nnnbjjnho-abtqkhybyh-wvgnvlm-devices/emergen -us e-authorizations us Brice Mondragon MD MICROBIOLOGY - GENERAL ORDERAB LES Final Result [facility] [address] [place] [address], documented in this encounter Visit Diagnoses Not on filedocumented in this encounter Additional Health Concerns Infection Onset Date Last Indicated Resolved Time COVID - 19 03/19/2021 07/02/2021 07/04/2021 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 COVID - 19 Confirmed 07/02/2021 07/02/2021 022 12:17 AM METAL TANK BUILDER COVID - 19 07/23/2021 08/13/2021 09/02/2021 12:1 6 AM METAL TANK BUILDER COVID - 19 10/08/2021 05/06/2022 05/16/2022 12:1 6 AM METAL TANK BUILDER COVID - 19 06/24/2022 09/09/2022 09/19/2022 12:1 6 AM CDT documented as of this encounter Care Teams Filer Finish Relationship Specialty Start Date End Date Brice Mondragon MD 4 [facility] [address] [place] [address] PCP - General Family Medicine 03/12/20 11/05/22 Fortino Alicia MD [address] [place] [address] PCP - General Internal Medicine 11/06/22 Jasson Layne MD Consulting Physician Neurology 04/02/16 05/07/24 documented as of this encounter
--- OUTSIDE RECORDS SUMMARY | 2024-11-28 09:21 | XMS_ITS | Clinical Summary ---
Author Organization [facility] Address [address] [place] [id number] Care Team Providers Care Advanced Nursing Professor Name Role Phone Fortino Alicia MD Primary Care Provider [phone] Allergies Active Allergy Reactions Criticality Noted Date Comments Bacitracin-Polymyxin B Unknown 03/12/2020 Tetanus Toxoid Unknown 03/12/2020 Medications Magnesium Hydroxide (MILK OF MAGNESIA PO)Indications:angel ry other day at bedtime Take 15 mL by mouth. Indications: every other day at bedtime Active Calcium Carbonate-Vitamin D 500-125 MG-UNIT Tablet Take by mouth. Active fluticasone (FLONASE) 50 MCG/ACT Suspension 1-2 Sprays by Nasal route daily. Use in each nostril as directed. Active levothyroxine (SYNTHROID) 100 MCG Tablet Take 100 mcg by mouth daily. Active folic acid (FOLVITE) 1 MG Tablet Take 1 mg by mouth daily. Active loratadine (CLARITIN) 10 MG Tablet Take 10 mg by mouth daily. Active meloxicam (MOBIC) 15 MG Tablet Take 15 mg by mouth daily. Active omeprazole (PriLOSEC) 10 MG CAPSULE DELAYED RELEASE Take 20 mg by mouth daily. Active levETIRAcetam (KEPPRA) 500 MG Tablet Take 500 mg by mouth 2 times daily. Active memantine ER (NAMENDA XR) 28 MG CAPSULE SR 24 HR Take 28 mg by mouth daily. Active donepezil (ARICEPT) 10 MG Tablet Take 10 mg by mouth nightly. Active Dextromethorphan HBr (ROBAFEN COUGH PO) Take by mouth. Active guar gum (BENEFIBER) Powder Take 1 Tbsp by mouth daily. 475 g 2 0 Active aspirin 325 MG Tablet Take 325 mg by mouth daily. Active ondansetron (ZOFRAN) 4 MG Tablet Take 4 mg by mouth every 8 hours as needed. Active Multiple Vitamin (MULTIVITAMIN PO) Take by mouth. Active atorvastatin (LIPITOR) 20 MG Tablet Take 20 mg by mouth daily. Active Calcium Polycarbophil (FIBER-LAX PO) Take by mouth. Active metoprolol tartrate (LOPRESSOR) 25 MG Tablet Take 25 mg by mouth 2 times daily. Active lacosamide (Vimpat) 100 MG TabletIndications: Seizures (HCC) Take 1 Tablet by mouth 2 times daily. 7am and HS 60 Tablet 5 2 Active ibandronate (BONIVA) 150 MG Tablet Take 150 mg by mouth every 30 days. Active Active Problems Problem Noted Date Diagnosed Date Mentally disabled Hypothyroid Seizures Dementia GERD (gastroesophageal reflux disease) Acute cholecystitis Gall stone pancreatitis Hypokalemia Hypomagnesemia Encounters Date Type Department Care Team Description 11/22/2024 5:10 PM CDT - 11/22/2024 9:01 PM CDT Emergency [facility] Emergency [address] [place] [address] Paddy Ricketts PAC DDD (degenerative disc disease), cervical Discharge Disposition: Discharged to home or Selfcare 11/22/2024 Travel 11/15/2024 Lab Requisition [facility] [address] [place] [address] Fortino Alicia MD Hypothyroidism, unspecified 10/23/2024 Telephone [facility] Emergency [address] [place] [address] Birgit Hall RN 10/19/2024 10:01 AM CDT - 10/19/2024 10:38 AM CDT Emergency [facility] Emergency [address] [place] [address] Harris Zamarripa DO Left leg pain Discharge Disposition: Discharged to home or Selfcare 10/19/2024 Travel 08/30/2024 Lab Requisition [facility] [address] [place] [address] Fortino Alicia MD Other seizures (HCC); Hypothyroidism, unspecified; Vasomotor rhinitis; Unspecified dementia, unspecified severity, without behavioral disturbance, psychotic disturbance, mood disturbance, and anxiety (HCC); Moderate intellectual disabilities; Unspecified intellectual disabilities; Essential (primary) hypertension from Last 3 Months Immunizations Immunization Administration Dates Next Due Covid-19, Mrna, Lnp-s, Pf, 30 Mcg/0.3 Ml Dose (P fizer) 05/02/2021 Influenza Vaccine 04/10/2017 Social History Tobacco Use Types Packs/Day Years Used Date Smoking Tobacco: Never Smokeless Tobacco: Never Tobacco Cessation:Counseling Given: Not Answered Alcohol Use Standard Drinks/Week Comments Not Currently [...] Sign Reading Time Taken Comments Blood Pressure 132/61 11/22/2024 8:55 PM CDT Pulse 66 11/22/2024 8:55 PM CDT Temperature 36.4 C (97.5 F) 11/22/2024 8:55 PM CDT Respiratory Rate 18 11/22/2024 8:55 PM CDT Oxygen Saturation 100% 11/22/2024 8:55 PM CDT Inhaled Oxygen Concentration - - Weight 63.5 kg (140 lb) 11/22/2024 5:04 PM CDT Height 162.6 cm (5' 4) 11/22/2024 5:04 PM CDT Body Mass Index 24.03 11/22/2024 5:04 PM CDT Plan of Treatment Health Maintenance Due Date Last Done Comments TdaP Immunization 1950 Colonoscopy 1996 Colorectal Cancer Screening 1996 Cologuard 2001 Immunochemical Fecal Occult Blood 2001 Zoster Immunization (1 of 2) 2001 Pneumococcal Immunization (50+ years) (2 of 2 - PCV) 06/14/2007 06/14/2006 SARS-COV-2 Immunization () 11/06/2024 05/09/2024, 03/26/2022, 05/02/2021, Additional history exists Mammogram 01/04/2025 01/05/2024, 12/26, 12/08/2022, Additional history exists DEXA Bone Density 03/05/2025 03/05/2023, , 09/08/2016 Respiratory Syncytial Virus (RSV) Immunization (Adult) (1 - 1-dose 75+ series) 2026 Pneumococcal Immunization Combined Discontinued 06/14/2006 Hepatitis C Virus (HCV) Screening Completed 03/13/2020 Influenza Immunization Completed , 05/11/2023, 05/06/2022, Additional history exists Hepatitis B Immunization Aged Out No longer eligible based on patient's age to complete this topic Human Papillomavirus (HPV) Immunization Aged Out No longer eligible based on patient's age to complete this topic Meningococcal Immunization (ACWY) Aged Out No longer eligible based on patient's age to complete this topic Rotavirus Immunization Aged Out No lo nger eligible based on patient's age to complete this topic Procedures Procedure Name Priority Date/Time Associated Diagnosis Comments XR SHOULDER COMPLETE LEFT STAT 11/22/2024 6:50 PM CDT XR ANKLE 3 OR MORE VIEWS LEFT STAT 11/22/2024 6:39 PM CDT BLUE TOP TUBE STAT 11/22/2024 6:30 PM CDT CBC WITH AUTO DIFFERENTIAL STAT 11/22/2024 6:30 PM CDT EXTRA TUBES STAT 11/22/2024 6:30 PM CDT BASIC METABOLIC PANEL W/ CALCIUM TOTAL STAT 11/22/2024 6:30 PM CDT COMPLETE BLOOD COUNT (CBC) WITH DIFF STAT 11/22/2024 6:[address] CERVICAL SPINE WO/ CONTRAST Stat with Interpretation 11/22/2024 6:[address] HEAD OR BRAIN WO CONTRAST Stat with Interpretation 11/22/2024 6:11 PM CDT URINALYSIS REFLEX IF INDICATED BY ABNORMAL RESULTS STAT 11/22/2024 5:59 PM CDT HERPES ZOSTER (VARICELLA) IGG Routine 11/15/2024 6:10 AM CDT Hypothyroidism, unspecified RUBEOLA (MEASLES) IGG Routine 11/15/2024 6:10 AM CDT Hypothyroidism, unspecified RUBELLA IMMUNITY IGG Routine 11/15/2024 6:10 AM CDT Hypothyroidism, unspecified MUMPS IGG Routine 11/15/2024 6:10 AM CDT Hypothyroidism, unspecified MMRV PANEL Routine 11/15/2024 6:10 AM CDT Hypothyroidism, unspecified LIPID PANEL Routine 11/15/2024 6:10 AM CDT Hypothyroidism, unspecified XR TIBIA & FIBULA LEFT STAT 10/19/2024 10:26 AM CDT CBC WITH AUTO DIFFERENTIAL Routine 08/30/2024 6:57 AM SPIKE MAKER Other seizures (HCC) Hypothyroidism, unspecified Vasomotor rhinitis Unspecified dementia, unspecified severity, without behavioral disturbance, psychotic disturbance, mood disturbance, and anxiety (HCC) Moderate intellectual disabilities Unspecified intellectual disabilities Essential (primary) hypertension BILIRUBIN DIRECT (CONJUGATED) Routine 08/30/2024 6:57 AM SPIKE MAKER Other seizures (HCC) Hypothyroidism, unspecified Vasomotor rhinitis Unspecified dementia, unspecified severity, without behavioral disturbance, psychotic disturbance, mood disturbance, and anxiety (HCC) Moderate intellectual disabilities Unspecified intellectual disabilities Essential (primary) hypertension VITAMIN D, 25 HYDROXY TOTAL Routine 08/30/2024 6:57 AM SPIKE MAKER Other seizures (HCC) Hypothyroidism, unspecified Vasomotor rhinitis Unspecified dementia, unspecified severity, without behavioral disturbance, psychotic disturbance, mood disturbance, and anxiety (HCC) Moderate intellectual disabilities Unspecified intellectual disabilities Essential (primary) hypertension LEVETIRACETAM Routine 08/30/2024 6:57 AM SPIKE MAKER Other seizures (HCC) Hypothyroidism, unspecified Vasomotor rhinitis Unspecified dementia, unspecified severity, without behavioral disturbance, psychotic disturbance, mood disturbance, and anxiety (HCC) Moderate intellectual disabilities Unspecified intellectual disabilities Essential (primary) hypertension COMPLETE BLOOD COUNT (CBC) WITH DIFF Routine 08/30/2024 6:57 AM SPIKE MAKER Other seizures (HCC) Hypothyroidism, unspecified Vasomotor rhinitis Unspecified dementia, unspecified severity, without behavioral disturbance, psychotic disturbance, mood disturbance, and anxiety (HCC) Moderate intellectual disabilities Unspecified intellectual disabilities Essential (primary) hypertension THYROID STIMULATING HORMONE (TSH) Routine 08/30/2024 6:57 AM SPIKE MAKER Other seizures (HCC) Hypothyroidism, unspecified Vasomotor rhinitis Unspecified dementia, unspecified severity, without behavioral disturbance, psychotic disturbance, mood disturbance, and anxiety (HCC) Moderate intellectual disabilities Unspecified intellectual disabilities Essential (primary) hypertension TRIIODOTHYRININE (T3) FREE Routine 08/30/2024 6:57 AM SPIKE MAKER Other seizures (HCC) Hypothyroidism, unspecified Vasomotor rhinitis Unspecified dementia, unspecified severity, without behavioral disturbance, psychotic disturbance, mood disturbance, and anxiety (HCC) Moderate intellectual disabilities Unspecified intellectual disabilities Essential (primary) hypertension CMP (COMPREHENSIVE METABOLIC PANEL) Routine 08/30/2024 6:57 AM SPIKE MAKER Other seizures (HCC) Hypothyroidism, unspecified Vasomotor rhinitis Unspecified dementia, unspecified severity, without behavioral disturbance, psychotic disturbance, mood disturbance, and anxiety (HCC) Moderate intellectual disabilities Unspecified intellectual disabilities Essential (primary) hypertension [facility] SCREENING BILATERAL DIGITAL W CAD Routine 01/05/2024 2:32 PM CDT Visit for screening mammogram [facility] BONE DENSITOMETRY AXIAL SKELETON Routine 03/05/2023 9:54 AM CDT Asymptomatic menopausal state HEPATITIS PANEL ACUTE (AHP) STAT 03/13/2020 5:05 AM CDT from Last 3 Months or Most Recently Relevant to Health Maintenance Results * XR SHOULDER COMPLETE LEFT (11/22/2024 6:50 PM CDT) Anatomical Region Laterality Modality UPPER EXTREMITY, shoulder Left Digita l Radiography 11/22/2024 8:23 PM CDT Impressions 11/22/2024 8:26 PM CDT IMPRESSION: No acute osseous abnormality. Narrative 11/22/2024 8:26 PM CDT EXAM DESCRIPTION: XR SHOULDER COMPLETE LEFT REASON FOR STUDY: Ground level fall today. C/o left shoulder pain. TECHNIQUE: 5 radiographic view(s) of the left shoulder. COMPARISON: None FINDINGS: There is no acute fracture or dislocation. The acromioclavicular and coracoclavicular relationships are preserved. Osteophytic spurring about the left acromioclavicular joint. Degenerative cyst formation lateral aspect of the humeral head. The bones are osteopenic. THIS IS AN ELECTRONICALLY VERIFIED FINAL REPORT 11/22/2024 8:23 PM - Electronically signed by Dougie Rodrigez M.D. KT: KT Report ID: [id number] Reading Location: [id number] Procedure Note Dougie Rodrigez MD - 11/22/2024 EXAM DESCRIPTION: XR SHOULDER COMPLETE LEFT REASON FOR STUDY: Ground level fall today. C/o left shoulder pain. TECHNIQUE: 5 radiographic view(s) of the left shoulder. COMPARISON: None FINDINGS: There is no acute fracture or dislocation. The acromioclavicular and coracoclavicular relationships are preserved. Osteophytic spurring about the left acromioclavicular joint. Degenerative cyst formation lateral aspect of the humeral head. The bones are osteopenic. THIS IS AN ELECTRONICALLY VERIFIED FINAL REPORT 11/22/2024 8:23 PM - Electronically signed by Dougie Rodrigez M.D. KT: KT Report ID: [id number] Reading Location: [id number] IMPRESSION: No acute osseous abnormality. Paddy Coleman [facility] IM DIAGNOSTIC ORDER JOSÉ Final Result * XR ANKLE 3 OR MORE VIEWS LEFT (11/22/2024 6:39 PM CDT) Anatomical Region Laterality Modality LOWER EXTREMITY, ankle Left Digital R adiography 11/22/2024 8:22 PM CDT Impressions 11/22/2024 8:24 PM CDT IMPRESSION: No acute osseous abnormality. Narrative 11/22/2024 8:24 PM CDT EXAM DESCRIPTION: XR ANKLE 3 OR MORE VIEWS LEFT REASON FOR STUDY: Ground level fall today, c/o medial left ankle pain. TECHNIQUE: 3 radiographic view(s) of the left ankle . COMPARISON: None FINDINGS: BONES/JOINTS: There is no acute fracture, malalignment or osseous abnormality. The joint spaces are normal. Osteopenia. Small plantar calcaneal spur. SOFT TISSUES: Within normal limits. THIS IS AN ELECTRONICALLY VERIFIED FINAL REPORT 11/22/2024 8:22 PM - Electronically signed by Dougie Rodrigez M.D. KT: KT Report ID: [id number] Reading Location: [id number] Procedure Note Dougie Rodrigez MD - 11/22/2024 EXAM DESCRIPTION: XR ANKLE 3 OR MORE VIEWS LEFT REASON FOR STUDY: Ground level fall today, c/o medial left ankle pain. TECHNIQUE: 3 radiographic view(s) of the left ankle . COMPARISON: None FINDINGS: BONES/JOINTS: There is no acute fracture, malalignment or osseous abnormality. The joint spaces are normal. Osteopenia. Small plantar calcaneal spur. SOFT TISSUES: Within normal limits. THIS IS AN ELECTRONICALLY VERIFIED FINAL REPORT 11/22/2024 8:22 PM - Electronically signed by Dougie Rodrigez M.D. KT: KT Report ID: [id number] Reading Location: [id number] IMPRESSION: No acute osseous abnormality. Paddy Ricketts PAC IMG DIAGNOSTIC ORDER JOSÉ Final Result * Blue Top Tube (11/22/2024 6:30 PM CDT) Blood No Phlebotomy Charged / Unknown 11/22/2024 6:30 PM CDT 11/22/2024 7:07 PM CDT us Paddy Ricketts PAC HEMATOLOGY ORDERABLE S Final Result [facility] [place] [address] * (ABNORMAL) CBC with Auto Differential (11/22/2024 6:30 PM CDT) Only the most recent of2 resultswithin the time period is included. WBC 7.79 4.00 - 12.00 10(3)/mcL 11/22/2024 7:11 PM CDT [facility] RBC 4.33 3.80 - 5.30 10(6)/mcL 11/22/2024 7:11 PM CDT [facility] HEMOGLOBIN (HGB) 13.0 12.0 - 15.8 g/dL 11/22/2024 7:11 PM CDT [facility] HEMATOCRIT (HCT) 39.8 36.0 - 47.0 % 11/22/2024 7:11 PM CDT [facility] MCV 91.9 82.0 - 96.0 fL 11/22/2024 7:11 PM CDT [facility] MCH 30.0 26.0 - 34.0 pg 11/22/2024 7:11 PM CDT [facility] MCHC 32.7 31.0 - 36.0 g/dL 11/22/2024 7:11 PM CDT [facility] PLATELET COUNT 248 140 - 440 10(3)/mcL 11/22/2024 7:11 PM CDT [facility] RDW 13.4 11.8 - 15.5 % 11/22/2024 7:11 PM CDT [facility] MPV 10.4 9.7 - 12.4 fL 11/22/2024 7:11 PM CDT [facility] NEUTROPHILS 80.2(H) 47.0 - 73.0 % 11/22/2024 7:11 PM CDT [facility] LYMPHOCYTES 11.8(L) 18.0 - 42.0 % 11/22/2024 7:11 PM CDT [facility] MONOCYTES 7.6 4.0 - 12.0 % 11/22/2024 7:11 PM CDT [facility] EOSINOPHILS 0.0 0.0 - 5.0 % 11/22/2024 7:11 PM CDT [facility] BASOPHILS 0.4 0.0 - 1.0 % 11/22/2024 7:11 PM CDT [facility] ABSOLUTE NEUTROPHILS 6.25 1.60 - 7.70 10(3)/[facility] 11/22/2024 7:11 PM CDT [facility] ABSOLUTE LYMPHOCYTES 0.92(L) 1.30 - 3.20 10(3)/[facility] 11/22/2024 7:11 PM CDT [facility] ABSOLUTE MONOCYTES 0.59 0.20 - 1.00 10(3)/[facility] 11/22/2024 7:11 PM CDT [facility] ABSOLUTE EOSINOPHIL 0.00 0.00 - 0.40 10(3)/[facility] 11/22/2024 7:11 PM CDT [facility] ABSOLUTE BASOPHILS 0.03 0.00 - 0.10 10(3)/[facility] 11/22/2024 7:11 PM CDT [facility] NRBC PER 100 WBC 0 11/23/19 7:11 PM CDT [facility] Blood Venipuncture / Unknown 11/22/2024 6:30 PM CDT 11/22/2024 7:07 PM CDT us Paddy Ricketts PAC HEMATOLOGY ORDERABLE S Final Result [facility] [place] [address] * (ABNORMAL) BMP w/ Ca (11/22/2024 6:30 PM CDT) SODIUM 140 136 - 145 mmol/L 11/22/2024 7:31 PM CDT [facility] POTASSIUM 4.2 3.5 - 5.1 mmol/L 11/22/2024 7:31 PM CDT [facility] CHLORIDE 109(H) 98 - 107 mmol/L 11/22/2024 7:31 PM CDT [facility] CO2, VENOUS 24 22 - 30 mmol/L 11/22/2024 7:31 PM CDT [facility] ANION GAP 11.2 <18.0 mmol/L 11/22/2024 7:31 PM CDT [facility] GLUCOSE 101(H) 70 - 99 mg/dL 11/22/2024 7:31 PM CDT [facility] BUN 16 10 - 20 mg/dL 11/22/2024 7:31 PM CDT [facility] CREATININE, BLOOD 0.66 0.60 - 1.00 mg/dL 11/22/2024 7:31 PM CDT [facility] BUN/CREATININE RATIO 24(H) 12 - 20 ratio 11/22/2024 7:31 PM CDT [facility] CALCIUM 9.4 8.7 - 10.5 mg/dL 11/22/2024 7:31 PM CDT [facility] GFR, ESTIMATED >60 >=60 11/22/2024 7:31 PM CDT [facility] Comment: Creatinine Clearance is the preferred criteria for selecting drug dose adjustments in renally impaired patients. The GFR is provided as additional pertinent clinical information. GFR is reported in mL/min/1.73 sq m. Calculation based on the Chronic Kidney Disease Epidemiology Collaboration (CKD- EPI) equation refit without adjustment for race. GFR, EST. >60 >=60 025 7:31 PM CDT [facility] GFR, EST. NONAFRICAN >60 >=60 11/22/2024 7:31 PM CDT [facility] Blood Venipuncture / Unknown 11/22/2024 6:30 PM CDT 11/22/2024 7:07 PM CDT us Paddy Ricketts PAC CHEMISTRY ORDERABLES Final Result [facility] [place] [address] * CT CERVICAL SPINE WO/ CONTRAST (11/22/2024 6:11 PM CDT) Anatomical Region Laterality Modality Spine N/A Computed Tomogra phy 11/22/2024 8:27 PM CDT Impressions 11/22/2024 8:29 PM CDT IMPRESSION: Multilevel degenerative change in the cervical spine. No CT evidence of cervical spine fracture. Narrative 11/22/2024 8:29 PM CDT EXAM DESCRIPTION: CT CERVICAL SPINE WO/ CONTRAST REASON FOR STUDY: c/o head pain after GLF. Hematoma noted to right side of forehead. denies LOC. HX of GERD . TECHNIQUE: Axial images through the cervical spine with sagittal and coronal reformatted images. Automated exposure control was used as a dose optimization technique for this examination. COMPARISON: None FINDINGS: ALIGNMENT: 2 mm anterolisthesis C4 on C5 and C5 on C6 and C6 on C7. VERTEBRAE: No fracture. Vertebral body heights well-maintained. DISCS: Mild disc space narrowing at C6-7 and C7-T1. Small marginal osteophytes C4 through C7. Degenerative change involving the articular facets. HARDWARE: None in the spine. INDIVIDUAL DISC LEVELS: No significant osseous spinal canal or neural foraminal stenosis. UPPER THORACIC: Incompletely imaged. No significant osseous spinal stenosis or osseous neural foraminal stenosis. SKULL BASE: No significant finding. LUNG APICES: No significant abnormality. NECK SOFT TISSUES: No significant abnormality. OTHER: No other significant findings. THIS IS AN ELECTRONICALLY VERIFIED FINAL REPORT 11/22/2024 8:27 PM - Electronically signed by Dougie Rodrigez M.D. KT: DMITRI Report ID: [id number] Reading Location: [id number] Procedure Note Dougie Rodrigze MD - 11/22/2024 EXAM DESCRIPTION: CT CERVICAL SPINE WO/ CONTRAST REASON FOR STUDY: c/o head pain after GLF. Hematoma noted to right side of forehead. denies LOC. HX of GERD . TECHNIQUE: Axial images through the cervical spine with sagittal and coronal reformatted images. Automated exposure control was used as a dose optimization technique for this examination. COMPARISON: None FINDINGS: ALIGNMENT: 2 mm anterolisthesis C4 on C5 and C5 on C6 and C6 on C7. VERTEBRAE: No fracture. Vertebral body heights well-maintained. DISCS: Mild disc space narrowing at C6-7 and C7-T1. Small marginal osteophytes C4 through C7. Degenerative change involving the articular facets. HARDWARE: None in the spine. INDIVIDUAL DISC LEVELS: No significant osseous spinal canal or neural foraminal stenosis. UPPER THORACIC: Incompletely imaged. No significant osseous spinal stenosis or osseous neural foraminal stenosis. SKULL BASE: No significant finding. LUNG APICES: No significant abnormality. NECK SOFT TISSUES: No significant abnormality. OTHER: No other significant findings. THIS IS AN ELECTRONICALLY VERIFIED FINAL REPORT 11/22/2024 8:27 PM - Electronically signed by Dougie Rodrigez M.D. KT: KT Report ID: [id number] Reading Location: [id number] IMPRESSION: Multilevel degenerative change in the cervical spine. No CT evidence of cervical spine fracture. Paddy Jared Ricketts [facility] CT ORDERABLES Fi nal Result * CT HEAD OR BRAIN WO CONTRAST (11/22/2024 6:11 PM CDT) Anatomical Region Laterality Modality Head N/A Computed Tomogra phy 11/22/2024 8:31 PM CDT Impressions 11/22/2024 8:34 PM CDT IMPRESSION: No acute intracranial findings. 5.7 cm x 1.5 cm right frontal scalp hematoma. Narrative 11/22/2024 8:34 PM CDT EXAM DESCRIPTION: CT HEAD OR BRAIN WO CONTRAST REASON FOR STUDY: c/o head pain after GLF. Hematoma noted to right side of forehead. denies LOC. HX of GERD . TECHNIQUE: Axial images acquired through the brain without intravenous contrast. Images stored on PACS. Automated exposure control was used as a dose optimization technique for this examination. COMPARISON: 06/28/2020 FINDINGS: BRAIN: No hemorrhage, edema or mass effect. No recent infarct. Generalized atrophy and periventricular microvascular white matter ischemic change. 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 Large dystrophic calcifications are again seen in the left middle cranial fossa. EXTRA-AXIAL SPACES: No fluid collections. No masses. CALVARIUM: No fracture. 5.7 cm x 1.5 cm right frontal scalp hematoma. SINUSES/MASTOIDS: Polyp or retention cyst left maxillary sinus. ORBITS: No significant abnormality. OTHER: No other significant abnormality. THIS IS AN ELECTRONICALLY VERIFIED FINAL REPORT 11/22/2024 8:31 PM - Electronically signed by Dougie Rodrigez M.D. KT: DMITRI Report ID: [id number] Reading Location: [id number] Procedure Note Dougie Rodrigez MD - 11/22/2024 EXAM DESCRIPTION: CT HEAD OR BRAIN WO CONTRAST REASON FOR STUDY: c/o head pain after GLF. Hematoma noted to right side of forehead. denies LOC. HX of GERD . TECHNIQUE: Axial images acquired through the brain without intravenous contrast. Images stored on PACS. Automated exposure control was used as a dose optimization technique for this examination. COMPARISON: 06/28/2020 FINDINGS: BRAIN: No hemorrhage, edema or mass effect. No recent infarct. Generalized atrophy and periventricular microvascular white matter ischemic change. 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 Large dystrophic calcifications are again seen in the left middle cranial fossa. EXTRA-AXIAL SPACES: No fluid collections. No masses. CALVARIUM: No fracture. 5.7 cm x 1.5 cm right frontal scalp hematoma. SINUSES/MASTOIDS: Polyp or retention cyst left maxillary sinus. ORBITS: No significant abnormality. OTHER: No other significant abnormality. THIS IS AN ELECTRONICALLY VERIFIED FINAL REPORT 11/22/2024 8:31 PM - Electronically signed by Dougie Rodrigez M.D. KT: KT Report ID: [id number] Reading Location: [place] [id number] IMPRESSION: No acute intracranial findings. 5.7 cm x 1.5 cm right frontal scalp hematoma. Paddy Albarrann PAC IMG CT ORDERABLES Fi nal Result * (ABNORMAL) Urinalysis w/ Reflex (11/22/2024 5:59 PM CDT) Pathologist [facility] SPECIFIC GRAVITY 1.010 1.003 - 1.030 11/22/2024 6:18 PM CDT [facility] URINE PH 6.0 5.0 - 9.0 11/22/2024 6:18 PM CDT [facility] WBC ESTERASE Negative Negative 11/22/2024 6:18 PM CDT [facility] LAB NITRITE Negative Negative 11/22/2024 6:18 PM CDT [facility] LAB PROTEIN, RANDOM URINE 15 mg/dL(A) Negative 11/22/2024 6:18 PM CDT [facility] URINE GLUCOSE, QUAL Negative Negative 11/22/2024 6:18 PM CDT [facility] URINE KETONES Negative Negative 11/22/2024 6:18 PM CDT [facility] UROBILINOGEN Normal Normal mg/dL 11/22/2024 6:18 PM CDT [facility] URINE BLOOD Negative Negative ruth/ul 11/22/2024 6:18 PM CDT [facility] LAB URINALYSIS COLOR Yellow 11/23/19 6:18 PM CDT [facility] URINALYSIS CLARITY Clear 11/22/2024 6:18 PM CDT [facility] Urine URINE SPECIMEN / Unknown Non-Phlebotomy Collection / Unknown 11/22/2024 5:59 PM CDT 11/22/2024 6:09 PM CDT Paddy Coleman Liliam PAC URINE ORDERABLES Fin al Result Performing Organization Address City/[facility]/ZIP Co de Phone Number [facility] [place] [address] * MUMPS IGG (11/15/2024 6:10 AM CDT) Mumps Ab IgG 2.7 >=1.1 AI 11/15/2024 3:40 PM CDT [facility] Blood Venipuncture / Unknown 11/15/2024 6:10 AM CDT 11/15/2024 9:09 AM CDT Narrative [facility] - 11/15/2024 3:40 PM CDT <= 0.8 Negative. No detectable Mumps IgG antibody. 0.9 - 1.0 Equivocal >=1.1 Positive Antibody testing was performed by multiplex flow immunoassay on the BioPlex platform. Fortino Alicia MD IMMUNOLOGY ORDERABLES Final Res ult Performing Organization Address [facility] Co de Phone Number [facility] [address] [place] [address], [place] * HERPES ZOSTER (VARICELLA) IGG (11/15/2024 6:10 AM CDT) VARICELLA ZOSTER IGG 1.7 >=1.1 AI 11/15/2024 3:40 PM CDT [facility] Blood Venipuncture / Unknown 11/15/2024 6:10 AM CDT 11/15/2024 9:09 AM CDT Narrative [facility] - 11/15/2024 3:40 PM CDT <= 0.8 Negative. No detectable VZV IgG antibody. 0.9 - 1.0 Equivocal >=1.1 Positive Antibody testing was performed by multiplex flow immunoassay on the BioPlex platform. us Fortino Alicia MD IMMUNOLOGY ORDERABLES Final Res ult [facility] [address] [place] [address], [place] * RUBEOLA (MEASLES) IGG (11/15/2024 6:10 AM CDT) MEASLES AB IGG 5.6 >=1.1 AI 11/15/2024 3:40 PM CDT [facility] Blood Venipuncture / Unknown 11/15/2024 6:10 AM CDT 11/15/2024 9:09 AM CDT Narrative [facility] - 11/15/2024 3:40 PM CDT <= 0.8 Negative. No detectable Measles IgG antibody. 0.9 - 1.0 Equivocal >=1.1 Positive Antibody testing was performed by multiplex flow immunoassay on the BioPlex platform. us Fortino Alicia MD IMMUNOLOGY ORDERABLES Final Res ult Performing Organization Address [facility]/ZIP Co de Phone Number [facility] [address] [place] [address], [place] * RUBELLA IMMUNITY IGG (11/15/2024 6:10 AM CDT) RUBELLA IMMUNITY Immune Immune, Invalid 11/15/2024 3:40 PM CDT [facility] RUBELLA IGG QUANT 5.10 >=1.0 AI AI 11/15/2024 3:40 PM CDT [facility] Blood Venipuncture / Unknown 11/15/2024 6:10 AM CDT 11/15/2024 9:09 AM CDT Narrative [facility] - 11/15/2024 3:40 PM CDT Antibody testing was performed by multiplex flow immunoassay on the BioPlex platform. us Fortino Alicia MD CHEMISTRY ORDERABLES Final Resu lt [facility] [address] [place] [address], [place] * LIPID PANEL (11/15/2024 6:10 AM CDT) CHOLESTEROL 149 <200 mg/dL 11/15/2024 9:55 AM CDT [facility] TRIGLYCERIDES 81 <150 mg/dL 11/15/2024 9:55 AM CDT [facility] HDL CHOLESTEROL 65 >40 mg/dL 9:55 AM CDT [facility] LDL 68 <130 mg/dL 11/15/2024 9:55 AM CDT [facility] VLDL 16 10 - 50 mg/dL 11/15/2024 9:55 AM CDT [facility] CHOL/HDL RATIO 2.3 0.0 - 4.4 11/15/2024 9:55 AM CDT [facility] NON-HDL CHOLESTEROL 84 <130 mg/dL 11/15/2024 9:55 AM CDT [facility] Blood Venipuncture / Unknown 11/15/2024 6:10 AM CDT 11/15/2024 9:09 AM CDT us Fortino Alicia MD CHEMISTRY ORDERABLES Final Resu lt [facility] [place] [address] * XR TIBIA & FIBULA LEFT (10/19/2024 10:26 AM CDT) Anatomical Region Laterality Modality LOWER EXTREMITY, leg Left Digital Rad iography 10/19/2024 11:0 1 AM CDT Impressions 10/19/2024 11:03 AM CDT IMPRESSION: Soft tissue swelling involving the left lower extremity with subtle cortical irregularity and lucency involving the left fibular neck, which is concerning for a minimally displaced fracture. Narrative 10/19/2024 11:03 AM CDT EXAM DESCRIPTION: XR TIBIA and FIBULA LEFT REASON FOR STUDY: pain x 1 day after fall and hit leg on table- calf pain and lower leg pain since radiating into foot- pain worse with weight bearing TECHNIQUE: 2 radiographic view(s) of the left tibia and fibula . COMPARISON: None FINDINGS: There is subtle cortical irregularity and lucency involving the left fibular neck. There is soft tissue swelling involving the left lower extremity. THIS IS AN ELECTRONICALLY VERIFIED FINAL REPORT 10/19/2024 11:01 AM - Electronically signed by Shena Jose D.O. PS: PS Report ID: [id number] Reading Location: [id number] Procedure Note Shena Jose DO - 10/19/2024 EXAM DESCRIPTION: XR TIBIA and FIBULA LEFT REASON FOR STUDY: pain x 1 day after fall and hit leg on table- calf pain and lower leg pain since radiating into foot- pain worse with weight bearing TECHNIQUE: 2 radiographic view(s) of the left tibia and fibula . COMPARISON: None FINDINGS: There is subtle cortical irregularity and lucency involving the left fibular neck. There is soft tissue swelling involving the left lower extremity. THIS IS AN ELECTRONICALLY VERIFIED FINAL REPORT 10/19/2024 11:01 AM - Electronically signed by Shena Jose D.O. PS: PS Report ID: [id number] Reading Location: [id number] IMPRESSION: Soft tissue swelling involving the left lower extremity with subtle cortical irregularity and lucency involving the left fibular neck, which is concerning for a minimally displaced fracture. us Harris Zamarripa DO IM DIAGNOSTIC ORDERABL ES Final Result * VITAMIN D, 25 HYDROXY TOTAL (08/30/2024 6:57 AM SPIKE MAKER) VITAMIN D, 25 HYDROX 29.3 ng/mL 08/30/2024 8:57 AM SPIKE MAKER [facility] Blood Venipuncture / Unknown 08/30/2024 6:57 AM SPIKE MAKER 08/30/2024 8:04 AM SPIKE MAKER Narrative [facility] - 08/30/2024 8:57 AM SPIKE MAKER Published reference ranges for Vitamin D vary depending on time and place and method of testing, and on patient's age, sex, ethnicity and levels of other measured analytes such as parathormone, calcium and phosphorus. The result should be evaluated in conjunction with clinical findings and suspicions. [place] [employer] and Endocrine Clinical Practice Guidelines: Status Vitamin D levels (ng/mL) Deficient <=20 At risk of inadequacy 21-29 Sufficient 30-100 Centers of Disease Control and Prevention Guidelines: Status Vitamin D levels (ng/mL) Deficient <13 At risk of inadequacy 13-19 Sufficient 20-50 Possibly harmful >50 References: [place] [employer], 2010 Dietary reference intakes for calcium and vitamin D. [place]: The National Academies Press. Gabi M, Laine N, Jamila STRATTON, et al., Evaluation, treatment, and prevention of Vitamin D deficiency: an Endocrinology Clinical Practice Guideline. JCEM 2011 96: 7 0226-3188. Nicole A, Seamus C, Karla D, et al., Vitamin D Status: [place], 7698-9494, [facility] data brief, no. 59, MD [place]: National Center for Health Statistics. 2011. Fortino Alicia MD CHEMISTRY ORDERABLES Final Resu lt [facility] [place] [address] * LEVETIRACETAM (08/30/2024 6:57 AM SPIKE MAKER) LEVETIRACETAM 37.7 12 - 46 mcg/mL 08/30/2024 2:31 PM SPIKE MAKER [facility] Blood Venipuncture / Unknown 08/30/2024 6:57 AM SPIKE MAKER 08/30/2024 8:04 AM SPIKE MAKER Fortino Alicia MD LAB SEND OUTS Final Result Performing Organization Address City/[facility]/ZIP Co de Phone Number [facility] [address] [place] [address], * THYROID STIMULATING HORMONE (TSH) (08/30/2024 6:57 AM SPIKE MAKER) TSH 1.652 0.300 - 5.000 mIU/L 08/30/2024 8:58 AM SPIKE MAKER [facility] Blood Venipuncture / Unknown 08/30/2024 6:57 AM SPIKE MAKER 08/30/2024 8:04 AM SPIKE MAKER us Fortino Alicia MD CHEMISTRY ORDERABLES Final Resu lt Performing Organization Address City/[facility]/ZIP Co de Phone Number [facility] [place] [address] * TRIIODOTHYRININE (T3) FREE (08/30/2024 6:57 AM SPIKE MAKER) Pathologist [facility] FREE T3 3.0 1.6 - 3.9 pg/mL 08/30/2024 2:44 PM SPIKE MAKER [facility] Blood Venipuncture / Unknown 08/30/2024 6:57 AM SPIKE MAKER 08/30/2024 8:04 AM SPIKE MAKER us Fortino Alicia MD CHEMISTRY ORDERABLES Final Resu lt Performing Organization Address City/[facility]/ZIP Co de Phone Number [facility] [address] [place] [address], * (ABNORMAL) CMP (COMPREHENSIVE METABOLIC PANEL) (08/30/2024 6:57 AM SPIKE MAKER) Pathologist [facility] SODIUM 143 136 - 145 mmol/L 08/30/2024 8:42 AM SPIKE MAKER [facility] POTASSIUM 4.1 3.5 - 5.1 mmol/L 08/30/2024 8:42 AM SPIKE MAKER [facility] CHLORIDE 107 98 - 107 mmol/L 08/30/2024 8:42 AM SPIKE MAKER [facility] CO2, VENOUS 27 22 - 30 mmol/L 08/30/2024 8:42 AM SPIKE MAKER [facility] ANION GAP 13.1 <18.0 mmol/L 08/30/2024 8:42 AM SPIKE MAKER [facility] GLUCOSE 99 70 - 99 mg/dL 08/30/2024 8:42 AM [facility] BUN 14 10 - 20 mg/dL 08/30/2024 8:42 AM [facility] CREATININE, BLOOD 0.75 0.60 - 1.00 mg/dL 08/30/2024 8:42 AM [facility] BUN/CREATININE RATIO 19 12 - 20 ratio 08/30/2024 8:42 AM [facility] TOTAL PROTEIN 8.2(H) 6.0 - 8.0 g/dL 08/30/2024 8:42 AM [facility] ALBUMIN 4.4 3.5 - 5.0 g/dL 08/30/2024 8:42 AM [facility] A/G RATIO 1.2 1.0 - 2.2 08/30/2024 8:42 AM [facility] CALCIUM 9.4 8.7 - 10.5 mg/dL 08/30/2024 8:42 AM [facility] T BILI 0.5 0.2 - 1.2 mg/dL 08/30/2024 8:42 AM [facility] SGOT (AST) 28 <43 U/L 08/30/2024 8:42 AM [facility] SGPT (ALT) 14 <56 U/L 08/30/2024 8:42 AM [facility] ALKALINE PHOSPHATASE 68 40 - 150 U/L 08/30/2024 8:42 AM [facility] GFR, ESTIMATED >60 >=60 08/30/2024 8:42 AM [facility] Comment: Creatinine Clearance is the preferred criteria for selecting drug dose adjustments in renally impaired patients. The GFR is provided as additional pertinent clinical information. GFR is reported in mL/min/1.73 sq m. Calculation based on the Chronic Kidney Disease Epidemiology Collaboration (CKD- EPI) equation refit without adjustment for race. GFR, EST. >60 >=60 025 8:42 AM [facility] GFR, EST. NONAFRICAN >60 >=60 08/30/2024 8:42 AM SPIKE MAKER [facility] Blood Venipuncture / Unknown 08/30/2024 6:57 AM SPIKE MAKER 08/30/2024 8:04 AM SPIKE MAKER us Fortino Alicia MD CHEMISTRY ORDERABLES Final Resu lt Performing Organization Address City/[facility]/ZIP Co de Phone Number [facility] [place] [address] * BILIRUBIN DIRECT (CONJUGATED) (08/30/2024 6:57 AM SPIKE MAKER) BILIRUBIN,DIREC T 0.2 0.0 - 0.5 mg/dL 08/30/2024 10:42 AM SPIKE MAKER [facility] Blood Venipuncture / Unknown 08/30/2024 6:57 AM SPIKE MAKER 08/30/2024 10:29 AM SPIKE MAKER Fortino Alicia MD CHEMISTRY ORDERABLES Final Resu lt Performing Organization Address City/[facility] Co de Phone Number [facility] [place] [address] * LUIPS SCREENING BILATERAL DIGITAL W CAD (01/05/2024 2:32 PM CDT) Anatomical Region Laterality Modality breast Bilateral Mammography 01/05/2024 2:23 PM CDT Narrative 01/07/2024 9:02 AM CDT - LUPIS SCREENING BILATERAL DIGITAL W CAD BILATERAL DIGITAL SCREENING MAMMOGRAM WITH CAD WITH MEDIOLATERAL OBLIQUE CRANIOCAUDAL: 01/05/2024 The study was acquired using digital technology and interpreted from soft copy. Current study was also evaluated with ICAD version 7.2. CLINICAL: Routine screening. Patient has no complaints. Patient is from a halfway. Patient was unable to fully cooperate with positioning. She has reduced range of motion. No personal history of cancer. No family history of breast cancer. COMPARISONS: Comparison is made to exams dated: 12/08/2022 [facility], 10/03/2021, and 07/11/2020 [facility]. BREAST TISSUE:The tissue of both breasts is heterogeneously dense. This may lower the sensitivity of mammography. FINDINGS: There are benign calcifications in both breasts. No significant masses, calcifications, or other findings are seen in either breast. There has been no significant interval change. IMPRESSION: BI-RAD 2 BENIGN There is no mammographic evidence of malignancy. A 1 year screening mammogram is recommended. A letter will be sent to the patient with these results. The patient will be entered into a reminder system with a target due date of 1 year for her next screening exam. Electronically signed by: Tom Barney M.D. ll/penrad:01/06/2024 19:11:04 Communications Technologist(s): RT Rachel(R)(M), [facility] letter sent: Normal Exam Reading location: [facility] BI-RADS: 2 Benign Procedure Note Tom Barney MD - 01/07/2024 - LUPIS SCREENING BILATERAL DIGITAL W CAD BILATERAL DIGITAL SCREENING MAMMOGRAM WITH CAD WITH MEDIOLATERAL OBLIQUE CRANIOCAUDAL: 01/05/2024 The study was acquired using digital technology and interpreted from soft copy. Current study was also evaluated with ICAD version 7.2. CLINICAL: Routine screening. Patient has no complaints. Patient is from a halfway. Patient was unable to fully cooperate with positioning. She has reduced range of motion. No personal history of cancer. No family history of breast cancer. COMPARISONS: Comparison is made to exams dated: 12/08/2022 [facility], 10/03/2021, and 07/11/2020 [facility]. BREAST TISSUE:The tissue of both breasts is heterogeneously dense. This may lower the sensitivity of mammography. FINDINGS: There are benign calcifications in both breasts. No significant masses, calcifications, or other findings are seen in either breast. There has been no significant interval change. IMPRESSION: BI-RAD 2 BENIGN There is no mammographic evidence of malignancy. A 1 year screening mammogram is recommended. A letter will be sent to the patient with these results. The patient will be entered into a reminder system with a target due date of 1 year for her next screening exam. Electronically signed by: Tom peterson/penviviana:01/06/2024 19:11:04 Communications Technologist(s): RT Rachel(Mony)(M), [facility] letter sent: Normal Exam Reading location: [place] BI-RADS: 2 Benign us Fortino Alicia MD IMG MAMMO ORDERABLES Final Resu lt * [facility] BONE DENSITOMETRY AXIAL SKELETON (03/05/2023 9:54 AM CDT) Anatomical Region Laterality Modality BODY N/A Computed Radiogr aphy 03/07/2023 5:52 AM CDT Impressions 03/07/2023 5:55 AM CDT IMPRESSION: Osteoporosis. REFERENCE: Bone mineral density: Normal (T-score above or = -1.0) Low bone mass (T-score between -1.0 and -2.5) replaces the previously used term osteopenia Osteoporosis (T-score = or below -2.5) Medical evaluation for secondary causes of low bone mineral density may be appropriate. FRAX is a World Health Organization validated fracture risk assessment tool that calculates a person's 10 year probability of a major osteoporosis related fracture and hip fracture. According to the National Osteoporosis Foundation guidelines, postmenopausal women and men age 50 or older with low bone mass and a 10 year probability of a major osteoporosis related fracture = or greater than 20% or a 10 year probability of a hip fracture = or greater than 3% should be considered for treatment. For further information, including treatment recommendations, please refer to the 2019 ISCD Official Positions (http://www.iscd.org) and the NOF's Clinician's Guide to Prevention and Treatment of Osteoporosis (http://www.nof.org/professionals/clinical-guidelines) Narrative 03/07/2023 5:55 AM CDT EXAM DESCRIPTION: [facility] BONE DENSITOMETRY AXIAL SKELETON REASON FOR STUDY: 72 y/o year old F with given history of: Post menopausal status. Patient takes vitamin-History of seizure disorder. 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 LEFT HIP: Total BMD is 0.775 g/cm2 T-score is -1.8 This is a 5% increase in comparison to prior exam which is statistically significant. Femoral neck BMD is 0.669 g/cm2 T-score is -2.7 FRAX: FRAX not reported due to T-scores of hip, femoral neck and/or spine being at or below -2.5 (Osteoporosis). THIS IS AN ELECTRONICALLY VERIFIED FINAL REPORT 03/07/2023 5:52 AM - Electronically signed by Rere Cervantes M.D. TW: Report ID: [id number] Reading Location: [place] [address] Procedure Note Rere Cervantes MD - 03/07/2023 EXAM DESCRIPTION: LUPIS BONE DENSITOMETRY AXIAL SKELETON REASON FOR STUDY: 72 y/o year old F with given history of: Post menopausal status. Patient takes vitamin-History of seizure disorder. 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 LEFT HIP: Total BMD is 0.775 g/cm2 T-score is -1.8 This is a 5% increase in comparison to prior exam which is statistically significant. Femoral neck BMD is 0.669 g/cm2 T-score is -2.7 FRAX: FRAX not reported due to T-scores of hip, femoral neck and/or spine being at or below -2.5 (Osteoporosis). THIS IS AN ELECTRONICALLY VERIFIED FINAL REPORT 03/07/2023 5:52 AM - Electronically signed by Rere Cervantes M.D. TW: Report ID: [id number] Reading Location: [id number] IMPRESSION: Osteoporosis. REFERENCE: Bone mineral density: Normal (T-score above or = -1.0) Low bone mass (T-score between -1.0 and -2.5) replaces the previously used term osteopenia Osteoporosis (T-score = or below -2.5) Medical evaluation for secondary causes of low bone mineral density may be appropriate. FRAX is a World Health Organization validated fracture risk assessment tool that calculates a person's 10 year probability of a major osteoporosis related fracture and hip fracture. According to the National Osteoporosis Foundation guidelines, postmenopausal women and men age 50 or older with low bone mass and a 10 year probability of a major osteoporosis related fracture = or greater than 20% or a 10 year probability of a hip fracture = or greater than 3% should be considered for treatment. For further information, including treatment recommendations, please refer to the 2019 ISCD Official Positions (http://www.iscd.org) and the NOF's Clinician's Guide to Prevention and Treatment of Osteoporosis (http://www.nof.org/professionals/clinical-guidelines) Chelo Manzo APRN, CNP IMG DEXA ORDERABLES Fin al Result * Hepatitis Panel Acute (AHP) (03/13/2020 5:05 AM CDT) HEPATITIS A IGM ANTIBODY NON DETECTED NON DETECTED 03/13/2020 3:50 PM CDT [facility] Comment: IGM Antibodies to HAV not detected. Does not exclude early acute or recovered HAV infection. HEP B CORE AB (IGM) NON DETECTED NON DETECTED 03/13/2020 3:50 PM CDT [facility] Comment:IGM anti-HBC not det ected. Does not exclude the possibility of exposure to or infection with HBV. HEPATITIS B SURFACE ANTIGEN NON DETECTED NON DETECTED 03/13/2020 3:50 PM CDT [facility] Comment:A nonreactive test r esult does not exclude the possibility of exposure to or infection with Hepatitis B virus. A nonreactive test result in individuals with prior exposure to hepatitis B may be due to antigen levels below the detection limit of this assay or lack of antigen reactivity to the antibodies in this assay. hepatitis C antibody 0.12 <1 S/CO 03/13/2020 3:50 PM CDT [facility] Comment: Signal/Cutoff ratio < 0.79 is Nondetected Signal/Cutoff ratio 0.80-0.99 is Grayzone Signal/Cutoff ratio > 0.99 is Detected Supplemental assays are recommended if signal/cutoff ratio is >/=1.00. Signal/cutoff ratio result >/= 5.00 is 97% predictive of positivity for recombinant immunoblot assay (RIBA) and will be reported to the [place] Department of Public Health as required. Blood Venipuncture / Unknown 03/13/2020 5:05 AM CDT 03/13/2020 5:11 AM CDT us Marek Felipe MD HEMATOLOGY ORDERABLES Final R esult [facility] [address] [place] [address], from Last 3 Months or Most Recently Relevant to Health Maintenance Insurance MEDICAID [place] MEDICARE C [facility] MEDICARE C [employer] on file Advance Directives * Full Code (Latest Code Status on File) Date Activated Date Inactivated Comments 03/13/2020 9:35 AM 03/20/2020 5:08 PM CPR-Full Luis Carlos atment: FULL ARREST: Attempt Resuscitation/CPR wit intubation and mechanical ventilation. PRE-ARREST: Use entire range of life support measures to stabilize the patient. Care Teams Advanced Nursing Professor Relationship Specialty Start Date End Date Fortino Alicia MD [address] [facility] [address] [place] [address] PCP - General Internal Medicine 11/06/22
--- OUTSIDE RECORDS SUMMARY | 2024-11-28 09:21 | XMS_ITS | Encounter Summary ---
Author Organization [facility] Address [address] [place] [address] Phone Care Team Providers Care Beef Lugger Name Role Phone Jasson Layne MD Unavailable Brice Mondragon MD Primary Care Provider [phone] Fortino Alicia MD Primary Care Provider [phone] Encounter Details Date Type Department Care Team (Late st Contact Info) Description 04/09/2021 Lab Requisition [facility] Laboratory Services 1 [place] [id number] Brice Mondragon MD [address] [place] [address] [facility] [address] [place] [address] Social History Tobacco Use Types [...] Associated Diagnosis Comments SARS-COV-2 BY MOLECULAR Routine 04/09/2021 9:01 AM CDT documented in this encounter Results * SARS-COV-2 BY MOLECULAR (04/09/2021 9:01 AM CDT) SARSCOV2 NOT DETECTED (Referen ce Range for this test is Not Detected ) [facility] THERMOFISHER FAST DX 04/10/2021 10:46 AM CDT [facility] Comment:This test was perfor med by a RT-PCR method. Other Non-Phlebotomy Collection / Unknown 04/09/2021 9:01 AM CDT 04/09/2021 10:33 AM CDT Narrative [facility] - 04/10/2021 10:46 AM CDT Authorized Fact Sheets about this test for providers and patients are available at: https://www.fda.gov/medical-devices/hoohtilez-qmjnohlhsq-dwoijxu-devices/emergen -us e-authorizations us Brice Mondragon MD MICROBIOLOGY - GENERAL ORDERAB LES Final Result [facility] [address] [place] [address], documented in this encounter Visit Diagnoses Not on filedocumented in this encounter Additional Health Concerns Infection Onset Date Last Indicated Resolved Time COVID - 19 03/19/2021 07/02/2021 07/04/2021 7:20 PM ASSOCIATE PRODUCER COVID - 19 Confirmed 07/02/2021 07/02/2021 022 12:17 AM ASSOCIATE PRODUCER COVID - 19 07/23/2021 08/13/2021 09/02/2021 12:1 6 AM ASSOCIATE PRODUCER COVID - 19 10/08/2021 05/06/2022 05/16/2022 12:1 6 AM ASSOCIATE PRODUCER COVID - 19 06/24/2022 09/09/2022 09/19/2022 12:1 6 AM CDT documented as of this encounter Care Teams Beef Lugger Relationship Specialty Start Date End Date Brice Modnragon MD [address] [facility] [address] [place] [address] PCP - General Family Medicine 03/12/20 11/05/22 Fortino Alicia MD [address] [place] [address] PCP - General Internal Medicine 11/06/22 Jasson Layne MD Consulting Physician Neurology 04/02/16 05/07/24 documented as of this encounter
--- OUTSIDE RECORDS SUMMARY | 2024-11-28 09:21 | XMS_ITS | Encounter Summary ---
Author Organization [facility] Address [address] [place] [address] Phone Care Team Providers Care Larriman Helper Name Role Phone Jasson Layne MD Unavailable [phone] Brice Mondragon MD Primary Care Provider [phone] Fortino Alicia MD Primary Care Provider [phone] Encounter Details Date Type Department Care Team (Late st Contact Info) Description 04/23/2021 Lab Requisition [facility] Laboratory Services 1 [place] [address] Brice Mondragon MD [address] [place] [address] [facility] [address] [place] [address] Encounter for screening for COVID-19 [...] Associated Diagnosis Comments SARS-COV-2 BY MOLECULAR Routine 04/23/2021 8:36 AM CDT Encounter for screening for COVID-19 documented in this encounter Results * SARS-COV-2 BY MOLECULAR (04/23/2021 8:36 AM CDT) SARSCOV2 NOT DETECTED (Referen ce Range for this test is Not Detected ) [facility] THERMOFISHER FAST DX 04/24/2021 9:05 AM CDT [facility] Comment:This test was perfor med by a RT-PCR method. Other Non-Phlebotomy Collection / Unknown 04/23/2021 8:36 AM CDT 04/23/2021 11:31 AM CDT Narrative [facility] - 04/24/2021 9:05 AM CDT Authorized Fact Sheets about this test for providers and patients are available at: https://www.fda.gov/medical-devices/lnmaakwqa-bcwzxllfrj-jlylhlm-devices/emergen -us e-authorizations us Brice Mondragon MD MICROBIOLOGY - GENERAL ORDERAB LES Final Result [facility] [address] [place] [address], documented in this encounter Visit Diagnoses Diagnosis Encounter for screening for COVID-19 documented in this encounter Additional Health Concerns Infection Onset Date Last Indicated Resolved Time COVID - 19 03/19/2021 07/02/2021 07/04/2021 7:20 PM 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 COVID - 19 Confirmed 07/02/2021 07/02/2021 022 12:17 AM LABOR AND 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 COVID - 19 07/23/2021 08/13/2021 09/02/2021 12:1 6 AM LABOR AND 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 COVID - 19 10/08/2021 05/06/2022 05/16/2022 12:1 6 AM LABOR AND 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 COVID - 19 06/24/2022 09/09/2022 09/19/2022 12:1 6 AM CDT documented as of this encounter Care Teams Larriman Helper Relationship Specialty Start Date End Date Brice Mondragon MD [address] [facility] [address] [place] [address] PCP - General Family Medicine 03/12/20 11/05/22 Fortino Alicia MD [address] [place] [address] PCP - General Internal Medicine 11/06/22 Jasson Layne MD Consulting Physician Neurology 04/02/16 05/07/24 documented as of this encounter
--- OUTSIDE RECORDS SUMMARY | 2024-11-28 09:21 | XMS_ITS | Encounter Summary ---
Author Organization [facility] Address [address] [place] [address] Phone Care Team Providers Care Coding Analyst Name Role Phone Jasson Layne MD Unavailable [phone] Brice Mondragon MD Primary Care Provider [phone] Fortino Alicia MD Primary Care Provider [phone] Encounter Details Date Type Department Care Team (Late st Contact Info) Description 04/16/2021 Lab Requisition [facility] Laboratory Services 1 [place] [address] Brice Mondragon MD [address] [place] [address] [facility] [address] [place] [address] Encounter for screening for COVID-19 [...] Associated Diagnosis Comments SARS-COV-2 BY MOLECULAR Routine 04/16/2021 8:51 AM CDT Encounter for screening for COVID-19 documented in this encounter Results * SARS-COV-2 BY MOLECULAR (04/16/2021 8:51 AM CDT) SARSCOV2 NOT DETECTED (Referen ce Range for this test is Not Detected ) [facility] THERMOFISHER FAST DX 04/17/2021 10:27 AM CDT [facility] Comment:This test was perfor med by a RT-PCR method. Other Non-Phlebotomy Collection / Unknown 04/16/2021 8:51 AM CDT 04/16/2021 11:09 AM CDT Narrative [facility] - 04/17/2021 10:27 AM CDT Authorized Fact Sheets about this test for providers and patients are available at: https://www.fda.gov/medical-devices/zlfovmzul-bzsakwtcno-caxhixa-devices/emergen -us e-authorizations us Brice Mondragon MD MICROBIOLOGY - GENERAL ORDERAB LES Final Result [facility] [address] [place] [address], documented in this encounter Visit Diagnoses Diagnosis Encounter for screening for COVID-19 documented in this encounter Additional Health Concerns Infection Onset Date Last Indicated Resolved Time COVID - 19 03/19/2021 07/02/2021 07/04/2021 7:20 PM POLICE LIEUTENANT COVID - 19 Confirmed 07/02/2021 07/02/2021 022 12:17 AM POLICE LIEUTENANT COVID - 19 07/23/2021 08/13/2021 09/02/2021 12:1 6 AM POLICE LIEUTENANT COVID - 19 10/08/2021 05/06/2022 05/16/2022 12:1 6 AM POLICE LIEUTENANT COVID - 19 06/24/2022 09/09/2022 09/19/2022 12:1 6 AM CDT documented as of this encounter Care Teams Coding Analyst Relationship Specialty Start Date End Date Brice Mondragon MD [address] [facility] [address] [place] [address] PCP - General Family Medicine 03/12/20 11/05/22 Fortino Alicia MD [address] [place] [address] PCP - General Internal Medicine 11/06/22 Jasson Layne MD Consulting Physician Neurology 04/02/16 05/07/24 documented as of this encounter
--- OUTSIDE RECORDS SUMMARY | 2024-11-28 09:21 | XMS_ITS | Encounter Summary ---
Author Organization [facility] Address [address] [place] [address] Phone Care Team Providers Care Cylinder Head Assembler Name Role Phone Jasson Layne MD Unavailable [phone] Brice Mondragon MD Primary Care Provider [phone] Fortino Alicia MD Primary Care Provider [phone] Encounter Details Date Type Department Care Team (Late st Contact Info) Description 04/30/2021 Lab Requisition [facility] Laboratory Services 1 [place] [address] Brice Mondragon MD [address] [place] [address] [place] [address] [place] [address] Encounter for screening for [...] Associated Diagnosis Comments SARS-COV-2 BY MOLECULAR Routine 04/30/2021 8:28 AM CDT Encounter for screening for COVID-19 documented in this encounter Results * SARS-COV-2 BY MOLECULAR (04/30/2021 8:28 AM CDT) SARSCOV2 NOT DETECTED (Referen ce Range for this test is Not Detected ) [facility] THERMOFISHER FAST DX 05/01/2021 12:01 AM CDT [facility] Comment:This test was perfor med by a RT-PCR method. Other No Phlebotomy Charged / Unknown 04/30/2021 8:28 AM CDT 04/30/2021 10:49 AM CDT Narrative [facility] - 05/01/2021 12:01 AM CDT Authorized Fact Sheets about this test for providers and patients are available at: https://www.fda.gov/medical-devices/gzxbzxbou-sttpaalmxm-jxvmlzz-devices/emergen cy-us e-authorizations us Brice Mondragon MD MICROBIOLOGY - GENERAL ORDERAB LES Final Result [facility] [address] [place] [address], documented in this encounter Visit Diagnoses Diagnosis Encounter for screening for COVID-19 documented in this encounter Additional Health Concerns Infection Onset Date Last Indicated Resolved Time COVID - 19 03/19/2021 07/02/2021 07/04/2021 7:20 PM HEAD OF MARKETING COVID - 19 Confirmed 07/02/2021 07/02/2021 022 12:17 AM HEAD OF MARKETING COVID - 19 07/23/2021 08/13/2021 09/02/2021 12:1 6 AM HEAD OF MARKETING COVID - 19 10/08/2021 05/06/2022 05/16/2022 12:1 6 AM HEAD OF MARKETING COVID - 19 06/24/2022 09/09/2022 09/19/2022 12:1 6 AM CDT documented as of this encounter Care Teams Cylinder Head Assembler Relationship Specialty Start Date End Date Brice Mondragon MD [address] [facility] [address] [place] [address] PCP - General Family Medicine 03/12/20 11/05/22 Fortino Alicia MD [address] [address] PCP - General Internal Medicine 11/06/22 Jasson Layne MD Consulting Physician Neurology 04/02/16 05/07/24 documented as of this encounter
--- OUTSIDE RECORDS SUMMARY | 2024-11-28 09:21 | XMS_ITS | Encounter Summary ---
Author Organization [facility] Address [address] [place] [address] Phone Care Team Providers Care Job Molder Name Role Phone Jasson Layne MD Unavailable [phone] Brice Mondragon MD Primary Care Provider [phone] Fortino Alicia MD Primary Care Provider [phone] Encounter Details Date Type Department Care Team (Late st Contact Info) Description 05/07/2021 Lab Requisition [facility] Laboratory Services 1 [place] [address] Brice Mondragon MD [address] [place] [address] [facility] [address] [place] [address] Encounter for screening for COVID-19 [...] Associated Diagnosis Comments SARS-COV-2 BY MOLECULAR Routine 05/07/2021 8:40 AM CEREAL CHEMIST Encounter for screening for COVID-19 documented in this encounter Results * SARS-COV-2 BY MOLECULAR (05/07/2021 8:40 AM CEREAL CHEMIST) SARSCOV2 NOT DETECTED (Referen ce Range for this test is Not Detected ) [facility] THERMOFISHER FAST DX 05/08/2021 1:33 PM CEREAL CHEMIST [facility] Comment:This test was perfor med by a RT-PCR method. Other No Phlebotomy Charged / Unknown 05/07/2021 8:40 AM CEREAL CHEMIST 05/07/2021 10:44 AM CEREAL CHEMIST Narrative [facility] - 05/08/2021 1:33 PM CEREAL CHEMIST Authorized Fact Sheets about this test for providers and patients are available at: https://www.fda.gov/medical-devices/pkitvivtx-tbyjnlxbjk-iwcxvex-devices/emergen -us e-authorizations Result [facility] Brice Mondragon MD MICROBIOLOGY - GENERAL ORDERAB LES Final Result [facility] [address] [place] [address], documented in this encounter Visit Diagnoses Diagnosis Encounter for screening for COVID-19 documented in this encounter Additional Health Concerns Infection Onset Date Last Indicated Resolved Time COVID - 19 03/19/2021 07/02/2021 07/04/2021 7:20 PM CEREAL CHEMIST COVID - 19 Confirmed 07/02/2021 07/02/2021 022 12:17 AM CEREAL CHEMIST COVID - 19 07/23/2021 08/13/2021 09/02/2021 12:1 6 AM CEREAL CHEMIST COVID - 19 10/08/2021 05/06/2022 05/16/2022 12:1 6 AM CEREAL CHEMIST COVID - 19 06/24/2022 09/09/2022 09/19/2022 12:1 6 AM CDT documented as of this encounter Care Teams Job Molder Relationship Specialty Start Date End Date Brice Mondragon MD [address] [facility] [address] [place] [address] PCP - General Family Medicine 03/12/20 11/05/22 Fortino Alicia MD [address] [address] PCP - General Internal Medicine 11/06/22 Jasson Layne MD Consulting Physician Neurology 04/02/16 05/07/24 documented as of this encounter
--- OUTSIDE RECORDS SUMMARY | 2024-11-28 09:21 | XMS_ITS | Encounter Summary ---
Author Organization [facility] Address [address] [place] [address] Phone Care Team Providers Care Marketing Development Specialist Name Role Phone Jasson Layne MD Unavailable [phone] Brice Mondragon MD Primary Care Provider [phone] Fortino Alicia MD Primary Care Provider Encounter Details Date Type Department Care Team (Late st Contact Info) Description 03/26/2021 Lab Requisition [facility] Laboratory Services 1 [place] [address] Brice Mondragon MD [address] [place] [address] [facility] [address] [place] [address] Encounter for screening for COVID-19 [...] Associated Diagnosis Comments SARS-COV-2 BY MOLECULAR Routine 03/26/2021 8:45 AM CDT Encounter for screening for COVID-19 documented in this encounter Results * SARS-COV-2 BY MOLECULAR (03/26/2021 8:45 AM CDT) SARSCOV2 NOT DETECTED (Referen ce Range for this test is Not Detected ) [facility] THERMOFISHER FAST DX 03/27/2021 6:36 AM CDT [facility] Comment:This test was perfor med by a RT-PCR method. Other Non-Phlebotomy Collection / Unknown 03/26/2021 8:45 AM CDT 03/26/2021 10:24 AM CDT Narrative [facility] - 03/27/2021 6:36 AM CDT Authorized Fact Sheets about this test for providers and patients are available at: https://www.fda.gov/medical-devices/ppwvqreed-fljwocpsaf-aknesfx-devices/emergen -us e-authorizations us Brice Mondragon MD MICROBIOLOGY - GENERAL ORDERAB LES Final Result [facility] [address] [place] [address], documented in this encounter Visit Diagnoses Diagnosis Encounter for screening for COVID-19 documented in this encounter Additional Health Concerns Infection Onset Date Last Indicated Resolved Time COVID - 19 03/19/2021 07/02/2021 07/04/2021 7:20 PM ACQUISITION MANAGER COVID - 19 Confirmed 07/02/2021 07/02/2021 022 12:17 AM ACQUISITION MANAGER COVID - 19 07/23/2021 08/13/2021 09/02/2021 12:1 6 AM ACQUISITION MANAGER COVID - 19 10/08/2021 05/06/2022 05/16/2022 12:1 6 AM ACQUISITION MANAGER COVID - 19 06/24/2022 09/09/2022 09/19/2022 12:1 6 AM CDT documented as of this encounter Care Teams Marketing Development Specialist Relationship Specialty Start Date End Date Brice Mondragon MD [address] [facility] [address] [place] [address] PCP - General Family Medicine 03/12/20 11/05/22 Fortino Alicia MD [address] [place] [address] PCP - General Internal Medicine 11/06/22 Jasson Layne MD Consulting Physician Neurology 04/02/16 05/07/24 documented as of this encounter
--- OUTSIDE RECORDS SUMMARY | 2024-11-28 09:21 | XMS_ITS | Encounter Summary ---
Author Organization [facility] Address [address] [place] [address] Phone Care Team Providers Care Clinical Haematologist Name Role Phone Jasson Layne MD Unavailable [phone] Brice Mondragon MD Primary Care Provider [phone] Fortino Alicia MD Primary Care Provider [phone] Encounter Details Date Type Department Care Team (Late st Contact Info) Description 04/02/2021 Lab Requisition [facility] Laboratory Services 1 [place] [address] Brice Mondragon MD [address] [place] [address] [facility] [address] [place] [address] Encounter for screening for COVID-19 [...] Associated Diagnosis Comments SARS-COV-2 BY MOLECULAR Routine 04/02/2021 7:31 AM CDT Encounter for screening for COVID-19 documented in this encounter Results * SARS-COV-2 BY MOLECULAR (04/02/2021 7:31 AM CDT) SARSCOV2 NOT DETECTED (Referen ce Range for this test is Not Detected ) [facility] THERMOFISHER FAST DX 04/03/2021 11:08 AM CDT [facility] Comment:This test was perfor med by a RT-PCR method. Other No Phlebotomy Charged / Unknown 04/02/2021 7:31 AM CDT 04/02/2021 10:38 AM CDT Narrative [facility] - 04/03/2021 11:08 AM CDT Authorized Fact Sheets about this test for providers and patients are available at: https://www.fda.gov/medical-devices/xhcbxobuq-dtrkqbjldq-ztespwm-devices/emergen -us e-authorizations us Brice Mondragon MD MICROBIOLOGY - GENERAL ORDERAB LES Final Result [facility] [address] [place] [address], documented in this encounter Visit Diagnoses Diagnosis Encounter for screening for COVID-19 documented in this encounter Additional Health Concerns Infection Onset Date Last Indicated Resolved Time COVID - 19 03/19/2021 07/02/2021 07/04/2021 7:20 PM RN NAVIGATOR COVID - 19 Confirmed 07/02/2021 07/02/2021 022 12:17 AM RN NAVIGATOR COVID - 19 07/23/2021 08/13/2021 09/02/2021 12:1 6 AM RN NAVIGATOR COVID - 19 10/08/2021 05/06/2022 05/16/2022 12:1 6 AM RN NAVIGATOR COVID - 19 06/24/2022 09/09/2022 09/19/2022 12:1 6 AM CDT documented as of this encounter Care Teams Clinical Haematologist Relationship Specialty Start Date End Date Brice Mondragon MD [address] [facility] [address] [place] [address] PCP - General Family Medicine 03/12/20 11/05/22 Fortino Alicia MD [address] [place] [address] PCP - General Internal Medicine 11/06/22 Jasson Layne MD Consulting Physician Neurology 04/02/16 05/07/24 documented as of this encounter
== END 2024-11-28 09:09 | disposition home or self-care (01) ==
LOC: ANHBWCAUD 09:09
PROVIDERS: PCP Family Medicine
DX: H91.3 Deaf nonspeaking, not elsewhere classified (principal)
CPT/HCPCS: 92557; 92567